=== PATIENT | female | born 1930 | race Caucasian/White ===

== ENCOUNTER 2019-03-13 21:39 | Inpatient (IN) | payer MEDICARE, OTHER ==
[~2019-03-13] VITALS: Ht 154.9 cm; Wt 41.3 kg
--- NOTE | 2019-03-13 22:19 | NUR ---
ANGEL FROM HOME. TO ER BED 10. PT IS TELUGU SPEAKING W/ SON AT BEDSIDE TO TRANSLATE. BREATHING DEEP, O2 SAT @ 100% ON RA. BROUGHT IN FOR SOB THAT IS WORSE TODAY BUT HAS BEEN GOING ON FOR ATLEAST 2 WEEKS. PT'S SONS REPORT THAT PT GET SOB EVEN JUST TAKING 10STEPS. PT NOT ON RESP DISTRESS UPON ASSESSMENT. PT PLACED ON 2 @ 2LPM VIA NC. AWAITING MD SHITAL CHUNG.
[2019-03-13] MEDS ORDERED: ASPIRIN 81 MG TAB.CHEW PO ONE (22:30)
[2019-03-13] MEDS ORDERED: NITROGLYCERIN PACKET 1 GM PACKET TD ONE (22:30)
--- NOTE | 2019-03-13 22:49 | NUR ---
TABBY [phone]
[2019-03-13] MEDS ORDERED: ASPIRIN 81 MG TAB.CHEW ONE (22:59)
[2019-03-13] MEDS ORDERED: NITROGLYCERIN PACKET 1 GM PACKET ONE (22:59)
[2019-03-13 23:06] LABS: BASOPHILS % (AUTO) 0.3 % (0.0-2.0); EOSINOPHILS % (AUTO) 0.3 % (0.0-6.0); LYMPHOCYTES # (AUTO) 1.3 /CMM (0.8-4.8); LYMPHOCYTES % (AUTO) 14.8 % (20.0-44.0); MEAN CORPUSCULAR HGB CONC 34 g/dl (31.0-36.0); MEAN CORPUSCULAR VOLUME 96 fL (82-100); MONOCYTES # (AUTO) 0.8 /CMM (0.1-1.30); MONOCYTES % (AUTO) 8.9 % (2.0-12.0); NEUTROPHILS # (AUTO) 6.4 /CMM (1.8-8.9); NEUTROPHILS % (AUTO) 75.7 % (43.0-81.0); PLATELET COUNT (AUTO) 192 /CMM (150-450); WHITE BLOOD COUNT (AUTO) 8.5 K/uL (4.3-11.0)
--- NOTE | 2019-03-13 23:06 | NUR ---
PATIENT ON PACER PADS AND MONITOR
[2019-03-13 23:07] LABS: RED BLOOD CELL COUNT(AUTO) 1.76 MIL/uL (4.0-5.2)
[2019-03-13 23:08] LABS: HEMATOCRIT 17 % (33-45); HEMOGLOBIN 5.7 g/dL (11.5-14.8)
--- NOTE | 2019-03-13 23:08 | NUR ---
PT NOTED WITH HR OF 42. AWARE.
[2019-03-13 23:11] LABS: CALCIUM, SERUM 7.9 mg/dL (8.5-10.1); CARBON DIOXIDE 17 mmol/L (21-32); CHLORIDE 104 mmol/L (98-107); CREATININE 2.4 mg/dL (0.6-1.3); GLUCOSE 101 mg/dL (74-106); POTASSIUM 5.9 mmol/L (3.5-5.1); SODIUM SERUM 127 mmol/L (136-145); UREA NITROGEN, BLOOD 41 mg/dL (7-18)
--- NOTE | 2019-03-13 23:13 | NUR ---
DR. REED ON THE PHONE WITH TOWER HOIST OPERATOR DR. HUBBARD
[2019-03-13 23:30] LABS: ALANINE AMINOTRANSFERASE 56 U/L (12-78); ALKALINE PHOSPHATASE 108 U/L (46-116); ASPARTATE AMINOTRANSFERASE 56 U/L (15-37); B-TYPE NATRIURETIC PEPTIDE 41151 PG/ML (0-125); BILIRUBIN,DIRECT 0.1 mg/dL (0.0-0.2); BILIRUBIN,TOTAL 0.2 mg/dL (0.2-1.0); D-DIMER 1.72 mg/L(FEU (0.17-0.50); TOTAL PROTEIN, SERUM 13.4 g/dL (6.4-8.2)
--- NOTE | 2019-03-13 23:42 | NUR ---
BED ASSIGNMENT: ICU 257
[2019-03-13] MEDS ORDERED: AMLO5TAB9 PO (23:52)
[2019-03-13] MEDS ORDERED: HYDR200T4 PO (23:52)
[2019-03-13] MEDS ORDERED: FERR325T23 PO (23:52)
[2019-03-13] MEDS ORDERED: FURO20TA4 PO (23:52)
[2019-03-13] MEDS ORDERED: ASCO500T9 PO (23:52)
[2019-03-13] MEDS ORDERED: FOLI1TAB16 PO (23:52)
[2019-03-13] MEDS ORDERED: LUBI24CA5 PO (23:52)
--- NOTE | 2019-03-13 23:57 | NUR ---
DR. ISHAN MEYERS
[2019-03-13] MEDS ORDERED: PANT40TA4 PO (23:58)
[2019-03-13] MEDS ORDERED: MEGE400O5 PO (23:58)
[2019-03-13] MEDS ORDERED: METH25VI11 IJ (23:58)
[2019-03-13] MEDS ORDERED: MAGN400T6 PO (23:58)
[2019-03-13] MEDS ORDERED: SERT25TA5 PO (23:58)
[2019-03-14] VITALS (31 sets, daily range): BP systolic 107–150; BP diastolic 52–100
[2019-03-14] MEDS ORDERED: ENOXAPARIN SODIUM 40 MG/0.4 ML DISP.SYRIN SQ SCH
[2019-03-14] MEDS ORDERED: LEVOFLOXACIN 500 MG /D5W 100ML 500 MG in PREMIX 1 EA IV SCH ×2
[2019-03-14] MEDS ORDERED: DEXTROSE 50%-WATER 50 ML DISP.SYRIN IVP ONE
[2019-03-14] MEDS ORDERED: SODIUM POLYSTYRENE SULFONATE 15 G/60 ML BOTTLE PO ONE
[2019-03-14] MEDS ORDERED: INSULIN REGULAR, HUMAN 100 UNIT/ML 3 ML VIAL SQ ONE
[2019-03-14 00:03] LABS: LYMPHOCYTES % (MANUAL) 11 % (16-48); MONOCYTES % (MANUAL) 6 % (0-11.0); NEUTROPHILS % (MANUAL) 83 (42-76)
[2019-03-14] MEDS ORDERED: LEVOFLOXACIN 500 MG /D5W 100ML 100 ML IV ONE (00:07)
[2019-03-14] MEDS ORDERED: INSULIN REGULAR, HUMAN 100 UNIT/ML 10 ML VIAL ONE (00:08)
[2019-03-14] MEDS ORDERED: SODIUM POLYSTYRENE SULFONATE 15 G/60 ML BOTTLE ONE (00:08)
[2019-03-14] MEDS ORDERED: ENOXAPARIN SODIUM 40 MG/0.4 ML DISP.SYRIN SQ ONE (00:08)
[2019-03-14] MEDS ORDERED: DEXTROSE 50%-WATER 50 ML DISP.SYRIN ONE (00:08)
[2019-03-14] MEDS ORDERED: FUROSEMIDE 20 MG/2 ML VIAL IV SCH (00:30)
[2019-03-14] MEDS ORDERED: FUROSEMIDE 20 MG/2 ML VIAL ONE (00:53)
[2019-03-14] MEDS ORDERED: ONDANSETRON HCL/PF 4 MG/2 ML VIAL IVP PRN (01:00)
--- NOTE | 2019-03-14 01:48 | NUR ---
@1711 BLOOD TRANFUSION STARTED. BLOOD PRODUCT VERIFIED BY 2 RN, KALEY OROPEZA. VITALS SIGNS - T:98.1, HR:75, BP: 114/65, RR:17, O2 SAT: 99%. BLOOD PRODUCT P/U @ LAB @2601
--- NOTE | 2019-03-14 02:15 | NUR ---
FIREWORKS DISPLAY SPECIALIST: PT RECEIVED FROM ED FOR PRIMARY DX OF SEVERE ANEMIA. A/O X 3, IRISH SPEAKING. SON AND DAUGHTER AT BEDSIDE TO INTERPRET. 1 UNIT PRBC RUNNING AND STARTED FROM ER WT NO ADVERSE REACTIONS. NO IV INFILTRATION NOTED. NO ACTIVE BLEEDING. NO ACUTE DISTRESS, NO C/O PAIN. AFEBRILE. SR ON YIELD ANALYST. BODY ASSESSMENT DONE. F/C INSERTED VIA STERILE TECHNIQUE AND TOLERATED WELL. HOB AT 35 DEGREES. BED LOCKED AND IN LOWEST POSITION WT BED ALARM ON AND SIDE RAILS UP X 2. WILL CONTINUE TO MONITOR.
--- NOTE | 2019-03-14 02:21 | NUR ---
PT TRANSPORTED TO UNIT WITH EMT AND RN AT BEDSIDE W/ ACLS PROTOCOL. PT KEPT ON PADDLE S AND MONITOR WHILE BEING TRANSPORTED.
--- NOTE | 2019-03-14 04:30 | NUR ---
STORE SHOPPER: 1 UNIT PRBC TRANSFUSED WT NO ADVERSE REACTION. WILL CONTINUE TO MONITOR. NOTIFIED LABOR CUSTODIAN THAT AM LABS WILL BE DRAWN IN AN HOUR.
[2019-03-14 05:06] LABS: APPEARANCE,URINE CLEAR (CLEAR); BILIRUBIN,URINE NEGATIVE (NEGATIVE); BLOOD, URINE NEGATIVE Ery/uL (NEGATIVE); COLOR,URINE YELLOW (YELLOW); KETONES,URINE NEGATIVE (NEGATIVE); LEUKOCYTE ESTERASE ,URINE NEGATIVE (NEGATIVE); NITRITE, URINE NEGATIVE (NEGATIVE); PROTEIN,URINE TRACE mg/dl (NEGATIVE); UGLUCOSE NEGATIVE (NEGATIVE); UROBILINOGEN,URINE 0.2 EU/dL (0.2)
[2019-03-14 05:11] LABS: OCCULT BLOOD STOOL NEGATIVE (NEGATIVE)
[2019-03-14 05:15] LABS: BACTERIA,URINE Moderate /HPF (None Seen); RBC,URINE 0-2 /HPF (0-2)
[2019-03-14 05:16] LABS: SQUAMOUS EPITHELIAL CELL,UR Few /HPF (None Seen)
[2019-03-14 05:56] LABS: ABG BASE EXCESS -10.5 mmol/L; ABG OXYGEN SATURATION 97.4 % (92.0-98.5); ABG PCO2 20.2 mmHg (35.0-45.0); ABG PH 7.417 (7.350-7.450); ABG PO2 105.7 mmHg (75.0-100.0); AaDO2 70.1 mmHg; COHb 1.1 % (0.5-1.5); MetHb 0.4 % (0.0-1.5); O2Hb 95.9 % (94.0-97.0); SITE, ABG Right Brachial; VENT MODE, BG N/C 2L
[2019-03-14 06:16] LABS: IRON, SERUM 90 ug/dl (50-175); TOTAL IRON BINDING CAPACITY 154 ug/dl (250-450)
[2019-03-14 06:20] LABS: CHOLESTEROL 111 mg/dL (<200); HDL CHOLESTEROL 22 mg/dL (40-60); LDL 77 mg/dL (0-99); THYROID STIMULATING HORMONE 0.457 uIU/mL (0.358-3.74); TRIGLYCERIDES 84 mg/dL (30-150)
[2019-03-14 06:21] LABS: ALANINE AMINOTRANSFERASE 58 U/L (12-78); ALBUMIN 2.1 g/dL (3.4-5.0); ALKALINE PHOSPHATASE 108 U/L (46-116); ASPARTATE AMINOTRANSFERASE 41 U/L (15-37); BILIRUBIN,TOTAL 0.3 mg/dL (0.2-1.0); CALCIUM, SERUM 8.2 mg/dL (8.5-10.1); CARBON DIOXIDE 15 mmol/L (21-32); CHLORIDE 104 mmol/L (98-107); CREATININE 2.6 mg/dL (0.6-1.3); GLUCOSE 76 mg/dL (74-106); MAGNESIUM 1.9 mg/dL (1.8-2.4); PHOSPHORUS 5.4 mg/dL (2.5-4.9); POTASSIUM 5.1 mmol/L (3.5-5.1); SODIUM SERUM 129 mmol/L (136-145); TOTAL PROTEIN, SERUM 14.5 g/dL (6.4-8.2); UREA NITROGEN, BLOOD 44 mg/dL (7-18)
[2019-03-14 06:34] LABS: BASOPHILS % (AUTO) 0.3 % (0.0-2.0); EOSINOPHILS % (AUTO) 0.3 % (0.0-6.0); HEMATOCRIT 23 % (33-45); HEMOGLOBIN 7.6 g/dL (11.5-14.8); LYMPHOCYTES # (AUTO) 1.4 /CMM (0.8-4.8); LYMPHOCYTES % (AUTO) 17.2 % (20.0-44.0); MEAN CORPUSCULAR HGB CONC 34 g/dl (31.0-36.0); MEAN CORPUSCULAR VOLUME 93 fL (82-100); MONOCYTES # (AUTO) 0.6 /CMM (0.1-1.30); NEUTROPHILS # (AUTO) 6.2 /CMM (1.8-8.9); NEUTROPHILS % (AUTO) 75.2 % (43.0-81.0); PLATELET COUNT (AUTO) 200 /CMM (150-450); RED BLOOD CELL COUNT(AUTO) 2.44 MIL/uL (4.0-5.2); WHITE BLOOD COUNT (AUTO) 8.3 K/uL (4.3-11.0)
--- NOTE | 2019-03-14 06:38 | NUR ---
CONSULTING SALES MANAGER: REMAINED ALERT AND AWAKE; ABLE TO MAKE NEEDS KNOWN. SEVERAL EPISODES OF DIARRHEA S/P KAYEXALATE ADMIN FROM ER. NOTED WT 2ND DEGREE HB TYPE 1 WHEN PT BEARS DOWN TO HAVE BOWEL MOVEMENT AND BACK TO SR WT BBB. WILL CONTINUE TO MONITOR.
--- NOTE | 2019-03-14 08:00 | NUR ---
rn inital notes pt awake in bed with NAD, denies pain, no acute or any signs of bleeding noted. remains on o2 inh via NC. torres cath in place and draining thru gravity. sinus rhythm/sinus asif on the monitor. safety ensured. will monitor.
[2019-03-14] MEDS ORDERED: PANTOPRAZOLE 40 MG VIAL IV SCH (09:00)
[2019-03-14] MEDS: NEXIUM 40 MG VIAL IV SCH (09:44)
[2019-03-14 14:36] LABS: CALCIUM, SERUM 7.6 mg/dL (8.5-10.1); CARBON DIOXIDE 14 mmol/L (21-32); CHLORIDE 104 mmol/L (98-107); CREATININE 2.3 mg/dL (0.6-1.3); GLUCOSE 92 mg/dL (74-106); POTASSIUM 4.7 mmol/L (3.5-5.1); SODIUM SERUM 129 mmol/L (136-145); UREA NITROGEN, BLOOD 43 mg/dL (7-18)
--- NOTE | 2019-03-14 19:28 | NUR ---
RN CLOSING NOTES PT AWAKE , DENIES PAIN. SEEN AND PARTICIPATED WITH PT, TOLERATED WELL. SEEN AND ASSESSED BY DR VELA, VERBAL ORDER TO DO CAT SCAN STAT GIVEN. NO BLEEDING NOTED DURING THE SHIFT. PTS SON AT BEDSIDE AND POC DISCUSSED BY DR VELA. ENDORSED TO NEXT SHIFT RN FOR CONTINUITY OF CARE IN STABLE CONDITION.
--- NOTE | 2019-03-14 20:15 | NUR ---
MACHINE OPERATOR PACKAGING NOTES PATIENT LEFT FOR CT IN STABLE CONDITION ACCOMPANIED BY ABBE AND CHARGE NURSE OCHOA
--- NOTE | 2019-03-14 20:35 | NUR ---
BREAKER OILER NOTES PATIENT BACK FROM CT
[2019-03-15] VITALS (17 sets, daily range): BP systolic 101–152; BP diastolic 49–105
[2019-03-15 04:58] LABS: LYMPHOCYTES # (AUTO) 0.7 /CMM (0.8-4.8); LYMPHOCYTES % (AUTO) 11.6 % (20.0-44.0); MEAN CORPUSCULAR HGB CONC 35 g/dl (31.0-36.0); MEAN CORPUSCULAR VOLUME 93 fL (82-100); MONOCYTES # (AUTO) 0.3 /CMM (0.1-1.30); MONOCYTES % (AUTO) 4.7 % (2.0-12.0); NEUTROPHILS # (AUTO) 5.3 /CMM (1.8-8.9); NEUTROPHILS % (AUTO) 83.7 % (43.0-81.0); PLATELET COUNT (AUTO) 175 /CMM (150-450); RED BLOOD CELL COUNT(AUTO) 2.14 MIL/uL (4.0-5.2); WHITE BLOOD COUNT (AUTO) 6.3 K/uL (4.3-11.0)
[2019-03-15 05:22] LABS: ALANINE AMINOTRANSFERASE 42 U/L (12-78); ALBUMIN 1.9 g/dL (3.4-5.0); ALKALINE PHOSPHATASE 90 U/L (46-116); ASPARTATE AMINOTRANSFERASE 28 U/L (15-37); BILIRUBIN,TOTAL 0.3 mg/dL (0.2-1.0); CALCIUM, SERUM 8.1 mg/dL (8.5-10.1); CARBON DIOXIDE 16 mmol/L (21-32); CHLORIDE 105 mmol/L (98-107); CREATININE 2.1 mg/dL (0.6-1.3); GLUCOSE 82 mg/dL (74-106); MAGNESIUM 1.7 mg/dL (1.8-2.4); POTASSIUM 4.6 mmol/L (3.5-5.1); SODIUM SERUM 129 mmol/L (136-145); TOTAL PROTEIN, SERUM 13.8 g/dL (6.4-8.2); UREA NITROGEN, BLOOD 37 mg/dL (7-18)
[2019-03-15 05:33] LABS: CREATINE KINASE, TOTAL 14 U/L (26-192); THYROID STIMULATING HORMONE 0.302 uIU/mL (0.358-3.74); URIC ACID 9.3 mg/dL (2.6-7.2)
[2019-03-15 05:49] LABS: HEMATOCRIT 20 % (33-45)
[2019-03-15 05:52] LABS: HEMOGLOBIN 6.9 g/dL (11.5-14.8)
[2019-03-15 06:50] LABS: LYMPHOCYTES % (MANUAL) 12 % (16-48); MONOCYTES % (MANUAL) 3 % (0-11.0); NEUTROPHILS % (MANUAL) 85 (42-76)
[2019-03-15] MEDS: Magnesium 1GM/D5W 100ML PREMIX 100 ML IV SCH ×2 (08:04→09:45)
[2019-03-15] MEDS: ALLOPURINOL 100 MG TABLET PO SCH (09:51)
[2019-03-15] MEDS: HYDROCORTISONE SOD SUCCINATE 100 MG/2 ML VIAL IV SCH ×3 (09:51→17:22)
--- NOTE | 2019-03-15 10:05 | NUR ---
RN NOTE: RECEIVED REPORT FROM CHARLIE, BRAKE REPAIRER BUS REGARDING THE PATIENT'S DOWNGRADE TO THE UNIT. PATIENT WAS RECEIVED AT ROOM 111-2. PATIENT WAS AWAKE, ALERT AND VERBALLY RESPONSIVE. ABLE TO MAKE HER NEEDS KNOWN. RESPIRATION EVEN AND UNLABORED SATURATING 100% WITH O2 2L/MIN VIA NC. GREEK SPEAKING MOSTLY. GREEK NURSE (Juventino LIM, NIDHI RN) WAS IN THE UNIT AND WAS TRANSLATING FOR THE PATIENT. PATIENT DENIED ANY PAIN AND NO DIZZINESS AT THIS TIME. ATTACHED TO CASH APPLICATIONS MANAGER, SR HR= 65. PER ICU NURSE REPORT, THE PATIENT WILL BE GIVEN A 1 UNIT PRBC DUE TO THE LOW HGB 6.9 AWAITING FOR BLOOD BANK TO CALL ONCE BLOOD IS READY FOR PICK-UP. PREPARED PAPERWORK FOR THE BLOOD INCLUDING COPY OF THE BLOOD TRANSFUSION CONSENT. PATIENT WAS ON COMFORTABLE POSITION WITH HOB ELEVATED AT 35 DEGREE. (L) AC AND (R) FOREARM IV SITE NOTED PATENT AND INTACT WITH MAGNESIUM 1GM IVPB INFUSING PER MD ORDER. AWAITING FOR THE NEXIUM IV TO BE DELIVERED FROM THE PHARMACY. AFEBRILE. SKIN WARM TO TOUCH. HARRISON CATHETER IN PLACED WITH YELLOW URINE DRAINING TO GRAVITY. BED ALARMED AND LOCKED AT ALL TIMES. CALL LIGHT WITHIN REACH. NEEDS ANTICIPATED.
[2019-03-15] MEDS: NEXIUM 40 MG VIAL IV SCH (10:44)
--- NOTE | 2019-03-15 11:09 | NUR ---
RN NOTE: PATIENT WAS STARTED WITH HER BLOOD TRANSFUSION PER MD ORDER. WILL MONITOR AND WATCH HER CLOSELY FOR ANY BLOOD TRANSFUSION REACTION. V/S WERE TAKEN PER PROTOCOL. PLEASE SEE TRANSFUSION RECORD.
[2019-03-15] MEDS: FLUDROCORTISONE 0.1 MG TABLET PO SCH ×2 (12:13→17:22)
[2019-03-15 13:07] LABS: *SPE A/G RATIO 0.4 (0.7-1.7); *SPE ALBUMIN 4.3 g/dL (2.9-4.4); *SPE ALPHA-1-GLOBULIN 0.3 g/dL (0.0-0.4); *SPE ALPHA-2-GLOBULIN 1.1 g/dL (0.4-1.0); *SPE BETA GLOBULIN 1.3 g/dL (0.7-1.3); *SPE GLOBULIN, TOTAL 10.4 g/dL (2.2-3.9); *SPE M-SPIKE 7.2 g/dL (Not Observed); *SPEGAMMA GLOBULIN 7.8 g/dL (0.4-1.8)
--- NOTE | 2019-03-15 13:09 | NUR ---
RN NOTE: BEDSIDE REPORT WAS GIVEN TO KIZZY, MILITARY SCIENCE TEACHER FOR CONTINUITY OF CARE. PATIENT WAS STILL RECEIVING HER BLOOD TRANSFUSION AT THIS TIME. DENIED ANY PAIN OR ANY SHORTNESS OF BREATH. SATURATING 100% WITH O2 2L/MIN VIA NC.
--- NOTE | 2019-03-15 13:10 | NUR ---
ICU/RN: RECEIVED BEDSIDE REPORT. PT ALERT, AWAKE, FOLLOWING COMMANDS. BLOOD TRANSFUSION INFUSING AT THIS TIME. PT TOLERATING WELL. NO ADVERSE REACTIONS NOTED. VS STABLE. NO ACUTE DISTRESS NOTED. ALL NEEDS WILL BE ATTENDED TO, SAFETY MEASURE TAKEN, BED IN LOW POSITON, SIDE RAILS UP, CALL LIGHT WITHIN REACH. WILL CONTINUE CARE.
--- NOTE | 2019-03-15 14:00 | NUR ---
ICU/RN: BLOOD TRANSFUSION COMPLETE. NO ADVERSE REACTIONS NOTED. VSS. WILL CONTINUE TO MONITOR.
--- NOTE | 2019-03-15 18:45 | NUR ---
ICU/RN: DR SCHWARZ AND AT BEDSIDE. DISCUSSED EXTENSIVELY PATIENTS CONDITION AND TREATMENT OPTIONS. OBTAINED CONSENT FOR BONE MARROW BIOPSY AND ASPIRATION FOR TOMORROW. ALL QUESTIONS ANSWERED. NEW ORDERS RECEIVED. WILL CONTINUE TO MONITOR AND ASSESS.
[2019-03-15] MEDS ORDERED: FUROSEMIDE 20 MG/2 ML VIAL IV SCH (19:00)
[2019-03-15] MEDS ORDERED: FUROSEMIDE 20 MG/2 ML VIAL IV ONE (19:00)
--- NOTE | 2019-03-15 19:30 | NUR ---
ICU/RN: BEDSIDE REPORT ENDORSED TO NIGHT NURSE. UPDATES GIVEN REGARDING PT CONDITION AND NEW ORDERS RECEIVED FROM MD. PT NOW NIDHI STATUS. PT RESTING IN BED. WORK OR BREATHING NOTED. VSS, OS AT STABLE. ABG WILL BE DONE. ALL NEEDS ATTENDED, SAFETY MEASURES TAKEN, BED IN LOW POSITION, SIDE RAILS UP, CALL LIGHT WITHIN REACH. WILL CONTINUE CARE.
[2019-03-15] MEDS: ALBUTEROL FS 2.5 MG/3 ML VIAL.NEB NEB SCH (19:41)
--- NOTE | 2019-03-15 19:46 | NUR ---
TD RN NOTE: RECEIVED PT ON BED AWAKE AND ALERT AND ORIENTED X3, TUNISIAN SPEAKING. NO COMPLAINTS OF PAIN OR DISCOMFORT. ON 3LPM NASAL CANNULA, NO SOB NOTED AT THIS TIME, 100% O2 SAT. ON TELE MONITOR SINUS RHYTHM HR 74BPM. LEFT ANTECUBITAL #20 INTACT AND PATENT, FLUSHING WELL. KEPT CLEAN, DRY AND COMFORTABLE. CALL LIGHT PLACED WITHIN REACH. SIDE RAILS UP X2. BED ALARM ON. BED LOCKED AND IN LOWEST POSITION. WILL CONTINUE TO MONITOR PT.
[2019-03-15] MEDS: MEGESTROL ACETATE SUSP 400 MG/10 ML UDC PO SCH (19:54)
[2019-03-15 20:17] LABS: ABG BASE EXCESS -8.8 mmol/L; ABG OXYGEN SATURATION 98.1 % (92.0-98.5); ABG PCO2 20.9 mmHg (35.0-45.0); ABG PH 7.443 (7.350-7.450); AaDO2 79.7 mmHg; COHb 0.6 % (0.5-1.5); MetHb 0.4 % (0.0-1.5); O2Hb 97.1 % (94.0-97.0); SITE, ABG Right Radial; VENT MODE, BG Cannula
[2019-03-16] VITALS: BP 139/76
[2019-03-16] MEDS: FLUDROCORTISONE 0.1 MG TABLET PO SCH ×4 (00:07→17:20)
[2019-03-16 04:00] VITALS: BP 144/73
--- NOTE | 2019-03-16 06:36 | NUR ---
TD RN NOTE: NO CHANGES NOTED THROUGHOUT THE SHIFT. NO APPARENT DISTRESS NOTED. DENIES PAIN AND DISCOMFORT AT THIS TIME. ON 3LPM NASAL CANNULA, SATURATING WELL. SINUS RHYTHM ON TELE MONITOR HR 81BPM. IV ON LEFT ANTECUBITAL #20 INTACT AND PATENT, FLUSHING WELL. HARRISON CATH INTACT, DRAINED 2000ML OF URINE OUTPUT. KEPT CLEAN, DRY AND COMFORTABLE. SAFETY AND FALL PRECAUTIONS OBSERVED AND MAINTAINED. WILL ENDORSE TO DAY SHIFT RN FOR CONTINUITY OF CARE.
[2019-03-16 07:09] LABS: BASOPHILS % (AUTO) 0.3 % (0.0-2.0); EOSINOPHILS % (AUTO) 0.1 % (0.0-6.0); HEMATOCRIT 22 % (33-45); HEMOGLOBIN 7.5 g/dL (11.5-14.8); LYMPHOCYTES # (AUTO) 0.6 /CMM (0.8-4.8); LYMPHOCYTES % (AUTO) 11.8 % (20.0-44.0); MEAN CORPUSCULAR HGB CONC 34 g/dl (31.0-36.0); MEAN CORPUSCULAR VOLUME 93 fL (82-100); MONOCYTES # (AUTO) 0.1 /CMM (0.1-1.30); MONOCYTES % (AUTO) 2.3 % (2.0-12.0); NEUTROPHILS # (AUTO) 4.1 /CMM (1.8-8.9); NEUTROPHILS % (AUTO) 85.5 % (43.0-81.0); PLATELET COUNT (AUTO) 156 /CMM (150-450); RED BLOOD CELL COUNT(AUTO) 2.39 MIL/uL (4.0-5.2); WHITE BLOOD COUNT (AUTO) 4.7 K/uL (4.3-11.0)
--- NOTE | 2019-03-16 07:15 | NUR ---
RN Note: Pt received, Faroese speaking only, SOB with exertion. FC draining to gravity. R AC HL patent and intact. Oriented to unit. Safety measures in place.
[2019-03-16 07:20] LABS: ALANINE AMINOTRANSFERASE 39 U/L (12-78); ALBUMIN 1.9 g/dL (3.4-5.0); ALKALINE PHOSPHATASE 85 U/L (46-116); ASPARTATE AMINOTRANSFERASE 25 U/L (15-37); BILIRUBIN,TOTAL 0.3 mg/dL (0.2-1.0); CALCIUM, SERUM 7.8 mg/dL (8.5-10.1); CARBON DIOXIDE 15 mmol/L (21-32); CHLORIDE 101 mmol/L (98-107); CREATININE 1.9 mg/dL (0.6-1.3); GLUCOSE 114 mg/dL (74-106); PHOSPHORUS 5.6 mg/dL (2.5-4.9); POTASSIUM 3.5 mmol/L (3.5-5.1); SODIUM SERUM 127 mmol/L (136-145); TOTAL PROTEIN, SERUM 13.5 g/dL (6.4-8.2); UREA NITROGEN, BLOOD 41 mg/dL (7-18)
[2019-03-16] MEDS: ALBUTEROL FS 2.5 MG/3 ML VIAL.NEB NEB SCH ×4 (07:54→19:39)
[2019-03-16 08:00] VITALS: BP 139/66
[2019-03-16] MEDS: HYDROCORTISONE SOD SUCCINATE 100 MG/2 ML VIAL IV SCH ×3 (08:16→16:15)
[2019-03-16] MEDS: MEGESTROL ACETATE SUSP 400 MG/10 ML UDC PO SCH ×2 (08:16→16:15)
[2019-03-16] MEDS: ALLOPURINOL 100 MG TABLET PO SCH (08:17)
[2019-03-16] MEDS: NEXIUM 40 MG VIAL IV SCH (08:17)
[2019-03-16] MEDS: Z GUARD REMEDY 2 OZ OINT TP PRN (08:17)
[2019-03-16] MEDS ORDERED: FUROSEMIDE 20 MG/2 ML VIAL IV ONE (09:30)
--- NOTE | 2019-03-16 10:30 | NUR ---
RN Note: Pt OOB to chair; ambulated with walker. Dyspnea noted with exertion. Educated pt to relax and take time during ADL's. S/P lasix administration.
--- NOTE | 2019-03-16 11:15 | NUR ---
RN Note: Pt out of unit for skeletal survey. Dr Enriquez rounding and updated.
--- NOTE | 2019-03-16 11:21 | NUR ---
RN Note: Pt back from radiology. Tolerated well.
[2019-03-16 12:09] LABS: *SPE A/G RATIO 0.4 (0.7-1.7); *SPE ALBUMIN 3.7 g/dL (2.9-4.4); *SPE ALPHA-1-GLOBULIN 0.2 g/dL (0.0-0.4); *SPE BETA GLOBULIN 1.2 g/dL (0.7-1.3); *SPE GLOBULIN, TOTAL 9.3 g/dL (2.2-3.9); *SPE M-SPIKE 6.7 g/dL (Not Observed)
--- NOTE | 2019-03-16 14:45 | NUR ---
RN Note: Pt c/o abd pain and distention after eating. Abd distention noted; given prune juice per pt request in am to no effect. Noted with increased work of breathing and discomfort. Dr Enriquez notified with orders for stat KUB for suspected ischemia, upgrade to NIDHI status, Dr Rosenthal consulted by MD for respiratory consultation. machinery cleaner updated.
[2019-03-16] MEDS ORDERED: LIDOCAINE 1% INJ 50 ML MDV IJ ONE (15:00)
--- NOTE | 2019-03-16 15:30 | NUR ---
RN Note: Dr Loredo rounds; updated on pt status. Pt's respiratory status remains tenuous; bone marrow biopsy on hold. Procedure supplies kept at bedside per MD order; lidocaine remains in pt cassette.
[2019-03-16] MEDS: MAG HYDROX/AL HYDROX/SIMETH 30 ML UDC PO PRN (15:36)
[2019-03-16 16:00] VITALS: BP_SYST 123; BP_DIAS 61; BP_DIAS 65
[2019-03-16] MEDS: IV D5/0.45 NACL 1,000 ML IV PRN (16:15)
--- NOTE | 2019-03-16 17:15 | NUR ---
RN Note: Extensive discussion with Herminio, son regarding POC. Pt kept NPO, on IVF per Dr Enriquez's orders.
--- NOTE | 2019-03-16 19:00 | NUR ---
RN Note: Pt resting in bed comfortably, indicates increase in comfort. IVF infusing well. FC draining to gravity. Bedside report given to RN for VASU.
--- NOTE | 2019-03-16 19:35 | NUR ---
TD RN NOTE: RECEIVED PT ON BED AWAKE AND ALERT AND ORIENTED X3, RUSSIAN SPEAKING ONLY. NO COMPLAINTS OF PAIN OR DISCOMFORT AT THIS TIME. ON 2LPM NASAL CANNULA, NO SOB NOTED AT THIS TIME, 100% O2 SAT. ON TELE MONITOR SINUS RHYTHM HR 64BPM. LEFT ANTECUBITAL #20 INTACT AND PATENT, IVF INFUSING WELL. KEPT CLEAN, DRY AND COMFORTABLE. CALL LIGHT PLACED WITHIN REACH. SIDE RAILS UP X2. BED ALARM ON. BED LOCKED AND IN LOWEST POSITION. WILL CONTINUE TO MONITOR PT.
[2019-03-16 20:00] VITALS: BP 132/53
[2019-03-17] VITALS: BP 126/67
[2019-03-17] MEDS: FLUDROCORTISONE 0.1 MG TABLET PO SCH ×3 (00:09→11:11)
[2019-03-17 04:00] VITALS: BP 132/42
--- NOTE | 2019-03-17 06:48 | NUR ---
TD RN NOTE: NO CHANGES NOTED THROUGHOUT THE SHIFT. NO APPARENT DISTRESS NOTED. DENIES PAIN AND DISCOMFORT AT THIS TIME. ON 2LPM NASAL CANNULA, SATURATING WELL. SOB ON EXERTION STILL NOTED. SINUS RHYTHM ON TELE MONITOR HR 65BPM. IV ON LEFT ANTECUBITAL #20 GOT INFILTRATED, REINSERTED NEW IV LINE ON RIGHT FOREARM #22 INTACT AND PATENT, IVF INFUSING WELL. HARRISON CATH INTACT, DRAINED 1100ML OF URINE OUTPUT. KEPT CLEAN, DRY AND COMFORTABLE. SAFETY AND FALL PRECAUTIONS OBSERVED AND MAINTAINED. WILL ENDORSE TO DAY SHIFT RN FOR CONTINUITY OF CARE.
--- NOTE | 2019-03-17 07:00 | NUR ---
RN NOTE: RECEIVED PT ON BED , A/Ox3, TELUGU SPEAKING ONLY. ON 2L O2 N/C , O2 SAT WNL , ON TELE SR, HR IN 60' , NO DISTRESS NOTED, IVF D51/2 NS AT 50 CC /HR RUNNING VIA R FA IV SITE G 22, SITE CLEAN,DRY AND INTACT, CALL LIGHT WITHIN EASY REACH. BED LOCKED AND IN LOWEST POSITION, SIDE RAILS UP X3. BED ALARM ON. CONTINUE TO MONITOR CLOSELY.
[2019-03-17 07:05] LABS: CALCIUM, SERUM 7.6 mg/dL (8.5-10.1); CARBON DIOXIDE 16 mmol/L (21-32); CHLORIDE 104 mmol/L (98-107); CREATININE 1.6 mg/dL (0.6-1.3); GLUCOSE 113 mg/dL (74-106); MAGNESIUM 2.1 mg/dL (1.8-2.4); PHOSPHORUS 4.1 mg/dL (2.5-4.9); SODIUM SERUM 132 mmol/L (136-145); UREA NITROGEN, BLOOD 44 mg/dL (7-18)
[2019-03-17 07:29] LABS: POTASSIUM 2.6 mmol/L (3.5-5.1)
--- NOTE | 2019-03-17 07:34 | NUR ---
RN NOTES DR VELA PAGED REGARDING K=2.6,
[2019-03-17] MEDS: ALBUTEROL FS 2.5 MG/3 ML VIAL.NEB NEB SCH ×4 (07:38→20:03)
[2019-03-17 08:00] VITALS: BP 137/77
[2019-03-17] MEDS ORDERED: POTASSIUM CHLORIDE 20 MEQ POWDER PACKET GT ONE (08:00)
[2019-03-17] MEDS ORDERED: POTASSIUM CHLORIDE 10 MEQ/50 ML PREMIXED IVPB FOR PERIPHERAL LINE IV ONE (08:00)
--- NOTE | 2019-03-17 08:00 | NUR ---
RN NOTES ORDER RECEIVED FROM DR VELA TO REPLACE POTASSIUM ,CONTINUE TO MONITOR
[2019-03-17] MEDS: MEGESTROL ACETATE SUSP 400 MG/10 ML UDC PO SCH ×2 (08:08→16:26)
[2019-03-17] MEDS: HYDROCORTISONE SOD SUCCINATE 100 MG/2 ML VIAL IV SCH ×3 (08:08→16:26)
[2019-03-17] MEDS: POTASSIUM CL. PREMIX PERIPHER. 50 ML IV SCH ×4 (08:09→11:11)
[2019-03-17] MEDS: ALLOPURINOL 100 MG TABLET PO SCH (08:09)
[2019-03-17] MEDS: NEXIUM 40 MG VIAL IV SCH (08:11)
[2019-03-17] MEDS: HYDROCODONE/APAP 5/325MG 1 EACH TABLET PO PRN ×2 (08:18→17:14)
[2019-03-17] MEDS: IV D5/0.45 NACL 1,000 ML IV PRN (11:16)
--- NOTE | 2019-03-17 12:28 | NUR ---
RN NOTE DR VELA NOTIFED REGARDING MED RECON.
[2019-03-17] MEDS ORDERED: Potassium Chloride 40 MEQ in IV D5/0.45 NACL 1,000 ML IV PRN (13:05)
[2019-03-17 16:00] VITALS: BP 127/70
--- NOTE | 2019-03-17 18:04 | NUR ---
RN NOTES BONE MARROW BX DONE AT THE BEDSIDE ON R HIP, BY DR SCHWARZ , PT TOLERATED WELL, NO DISTRESS NOTED, BANDAIDE ON SITE , CLEAN, DRY AND INTACT, CONTINUE TO MONITOR .
[2019-03-17 18:18] LABS: BASOPHILS % (AUTO) 0.1 % (0.0-2.0); EOSINOPHILS % (AUTO) 0.1 % (0.0-6.0); LYMPHOCYTES # (AUTO) 0.2 /CMM (0.8-4.8); LYMPHOCYTES % (AUTO) 6.6 % (20.0-44.0); MEAN CORPUSCULAR HGB CONC 34 g/dl (31.0-36.0); MEAN CORPUSCULAR VOLUME 93 fL (82-100); MONOCYTES % (AUTO) 0.7 % (2.0-12.0); NEUTROPHILS # (AUTO) 3.4 /CMM (1.8-8.9); NEUTROPHILS % (AUTO) 92.5 % (43.0-81.0); PLATELET COUNT (AUTO) 139 /CMM (150-450); RED BLOOD CELL COUNT(AUTO) 2.16 MIL/uL (4.0-5.2); WHITE BLOOD COUNT (AUTO) 3.7 K/uL (4.3-11.0)
--- NOTE | 2019-03-17 18:19 | NUR ---
RN NOTES BX SAMPLE DELIVERED TO THE LAB , PT STABLE, SUPPORTIVE FAMILY AT THE BEDSIDE, NO DISTRESS NOTED , WILL ENDORSE TO REEXAMINER NURSE FOR CONTINUITY OF CARE.
[2019-03-17 18:41] LABS: HEMOGLOBIN 6.8 g/dL (11.5-14.8)
[2019-03-17 18:42] LABS: HEMATOCRIT 20 % (33-45)
--- NOTE | 2019-03-17 19:00 | NUR ---
RN NOTES H/H 6.03/07 , DR VELA PAGED , NO RETURN CALL YET .
--- NOTE | 2019-03-17 19:10 | NUR ---
RN NOTES NO RETURN CALL FROM DR THOMASON YET, REPORT ENDORSED TO STANLEY ROCHE FOR CONTINUITY OF CARE .
[2019-03-17 19:29] LABS: LYMPHOCYTES % (MANUAL) 7 % (16-48); MONOCYTES % (MANUAL) 1 % (0-11.0); NEUTROPHILS % (MANUAL) 92 (42-76)
[2019-03-17 20:00] VITALS: BP 132/68
--- NOTE | 2019-03-17 20:00 | NUR ---
MILL OPERATOR HEAD OPENING NOTES RECEIVED REPORT FROM GOMEZ ROCHE. PATIENT A/A/O X2-3, MOSTLY BELIZEAN-SPEAKING BUT STILL ABLE TO MAKE SOME NEEDS KNOWN & STATE PAIN. BREATHING EVEN & UNLABORED, TOLERATING O2 @ 2LPM VIA NC. DENIES ANY SOB OR DIFFICULTY BREATHING. ON TELE W/ SINUS RHYTHM, HR 70S. RIGHT FOREARM IV #22 INTACT & PATENT W/ DRESSING CDI & IVF D5 1/2 NS W/ 20 MEQ OF KCL INFUSING WELL @ 50 ML/HR. HARRISON CATH DRAINING YELLOW URINE. SAFETY MEASURES IN PLACE W/ SIDE RAILS UP & BED ALARM ON. TURNED & REPOSITIONED FOR COMFORT W HOB ELEVATED FOR ASPIRATION PRECAUTIONS. WILL CONTINUE TO MONITOR.
[2019-03-18] VITALS (12 sets, daily range): BP systolic 137–155; BP diastolic 73–91
[2019-03-18] MEDS: MAGNESIUM HYDROXIDE 30 ML UDC PO PRN (04:48)
[2019-03-18 07:03] LABS: BASOPHILS % (AUTO) 0.2 % (0.0-2.0); EOSINOPHILS % (AUTO) 0.6 % (0.0-6.0); HEMATOCRIT 24 % (33-45); HEMOGLOBIN 8.3 g/dL (11.5-14.8); LYMPHOCYTES # (AUTO) 0.3 /CMM (0.8-4.8); LYMPHOCYTES % (AUTO) 10.2 % (20.0-44.0); MEAN CORPUSCULAR HGB CONC 34 g/dl (31.0-36.0); MEAN CORPUSCULAR VOLUME 93 fL (82-100); MONOCYTES # (AUTO) 0.1 /CMM (0.1-1.30); MONOCYTES % (AUTO) 2.1 % (2.0-12.0); NEUTROPHILS % (AUTO) 86.9 % (43.0-81.0); PLATELET COUNT (AUTO) 131 /CMM (150-450); RED BLOOD CELL COUNT(AUTO) 2.61 MIL/uL (4.0-5.2); WHITE BLOOD COUNT (AUTO) 3.4 K/uL (4.3-11.0)
[2019-03-18 07:09] LABS: ALANINE AMINOTRANSFERASE 35 U/L (12-78); ALBUMIN 1.9 g/dL (3.4-5.0); ALKALINE PHOSPHATASE 63 U/L (46-116); ASPARTATE AMINOTRANSFERASE 20 U/L (15-37); BILIRUBIN,DIRECT 0.2 mg/dL (0.0-0.2); BILIRUBIN,TOTAL 0.5 mg/dL (0.2-1.0); CALCIUM, SERUM 7.9 mg/dL (8.5-10.1); CARBON DIOXIDE 15 mmol/L (21-32); CHLORIDE 109 mmol/L (98-107); CREATININE 1.5 mg/dL (0.6-1.3); GLUCOSE 104 mg/dL (74-106); PHOSPHORUS 3.6 mg/dL (2.5-4.9); POTASSIUM 4.9 mmol/L (3.5-5.1); SODIUM SERUM 134 mmol/L (136-145); TOTAL PROTEIN, SERUM 13.4 g/dL (6.4-8.2); UREA NITROGEN, BLOOD 49 mg/dL (7-18)
[2019-03-18] MEDS: ALBUTEROL FS 2.5 MG/3 ML VIAL.NEB NEB SCH ×4 (07:18→20:06)
--- NOTE | 2019-03-18 07:45 | NUR ---
RN NOTE: RECEIVED PATIENT IN BED, AWAKE, ALERT AND VERBALLY RESPONSIVE. RESPIRATION EVEN AND UNLABORED SATURATING 97% WITH O2 2L/MIN VIA NC. AFEBRILE. SKIN WARM TO TOUCH. HOB ELEVATED. ON GRIND OPERATOR SR WITH HR 80. PATIENT WAS VERBALIZING THAT HER MOUTH WAS VERY DRY. MOISTENED THE PATIENT'S MOUTH WITH LEMON GLYCERIN SWAB. (R) FOREARM AND (R) WRIST IV SITE NOTED PATENT AND INTACT. HARRISON CATHETER IN PLACED WITH YELLOW URINE DRAINING TO GRAVITY. BED ON LOWEST POSITION. BED ALARMED AND LOCKED AT ALL TIMES. CALL LIGHT WITHIN REACH. NEEDS ANTICIPATED.
[2019-03-18] MEDS: HYDROCODONE/APAP 5/325MG 1 EACH TABLET PO PRN (07:58)
[2019-03-18] MEDS: ALLOPURINOL 100 MG TABLET PO SCH (08:19)
[2019-03-18] MEDS: HYDROCORTISONE SOD SUCCINATE 100 MG/2 ML VIAL IV SCH ×3 (08:19→17:18)
[2019-03-18] MEDS: MEGESTROL ACETATE SUSP 400 MG/10 ML UDC PO SCH ×2 (08:19→17:18)
[2019-03-18] MEDS: NEXIUM 40 MG VIAL IV SCH (08:23)
--- NOTE | 2019-03-18 08:47 | NUR ---
RN NOTE: KUB DONE AT THE BEDSIDE. PATIENT TOLERATED IT.
--- NOTE | 2019-03-18 10:59 | NUR ---
RN NOTE: CALLED AND SPOKE WITH DR. VELA REGARDING THE PATIENT'S KUB RESULT. PER MD, OK TO START WITH CLEAR LIQUID DIET FOR LUNCH AND ADVANCE TOLERATED. TABBY, SON WAS AT THE BEDSIDE AND MADE AWARE OF IT.
--- NOTE | 2019-03-18 12:07 | NUR ---
RN NOTE: SPOKE WITH DR. VELA AND CLARIFIED WITH HER REGARDING THE ACUITY STATUS OF THE PATIENT. PER MD, KEEP THE PATIENT ON TELEMETRY MONITORING DUE TO HER HIGH RISK SITUATION. ORDERED AND CARRIED OUT.
--- NOTE | 2019-03-18 19:30 | NUR ---
COMPUTER DRAFTER NOTE: RECEIVED PT ON BED AWAKE AND ALERT AND ORIENTED X3, JAPANESE SPEAKING ONLY. NO COMPLAINTS OF PAIN OR DISCOMFORT AT THIS TIME. ON 2LPM NASAL CANNULA, NO SOB NOTED, 100% O2 SAT. ON TELE MONITOR SINUS RHYTHM HR 68BPM. RIGHT FOREARM #22 AND RIGHT WRIST #20 INTACT AND PATENT, FLUSHING WELL. KEPT CLEAN, DRY AND COMFORTABLE. CALL LIGHT PLACED WITHIN REACH. SIDE RAILS UP X2. BED ALARM ON. BED LOCKED AND IN LOWEST POSITION. WILL CONTINUE TO MONITOR PT.
--- NOTE | 2019-03-18 19:46 | NUR ---
RN NOTE: BEDSIDE REPORT WAS GIVEN TO PM SHIFT NURSE FOR CONTINUITY OF CARE. PATIENT WAS ASLEEP IN THE BED. COMFORTABLE AND NO SHORTNESS OF BREATH NOTED. PATIENT REMAINED ON O2 2L/MIN VIA NC. (R) FOREARM AND (R) WRIST IV SITE REMAINED PATENT AND INTACT.
[2019-03-19] VITALS (7 sets, daily range): BP systolic 120–147; BP diastolic 66–90
--- NOTE | 2019-03-19 06:36 | NUR ---
STRAP BUCKLER MACHINE NOTE: NO CHANGES NOTED THROUGHOUT THE SHIFT. NO APPARENT DISTRESS NOTED. DENIES PAIN AND DISCOMFORT AT THIS TIME. ON 2LPM NASAL CANNULA, SATURATING WELL. NO SOB NOTED AT THIS TIME. SINUS RHYTHM ON TELE MONITOR HR 86BPM. IV ON RIGHT FOREARM #22 AND RIGHT WRIST #20 INTACT AND PATENT, FLUSHING WELL. HARRISON CATH INTACT, DRAINED 300ML OF URINE OUTPUT. KEPT CLEAN, DRY AND COMFORTABLE. SAFETY AND FALL PRECAUTIONS OBSERVED AND MAINTAINED. WILL ENDORSE TO DAY SHIFT RN FOR CONTINUITY OF CARE.
[2019-03-19 07:29] LABS: CALCIUM, SERUM 8.3 mg/dL (8.5-10.1); CARBON DIOXIDE 16 mmol/L (21-32); CHLORIDE 107 mmol/L (98-107); CREATININE 1.4 mg/dL (0.6-1.3); GLUCOSE 99 mg/dL (74-106); POTASSIUM 4.3 mmol/L (3.5-5.1); SODIUM SERUM 132 mmol/L (136-145); UREA NITROGEN, BLOOD 49 mg/dL (7-18)
--- NOTE | 2019-03-19 07:30 | NUR ---
RN AM NOTE PATIENT CYMRO SPEAKING FAMILY AT BEDSIDE. NO COMPLAINTS OF PAIN, ASSIST PATIENT TO BEDSIDE COMODE. PATIENT ON LIQUID DIET TOLERATING 75% OF ALL MEALS. VITALS WNL EXTERNAL MONIITOR ON IV PATENT AND FLUSIING WELL. F/C DRAINING WELL SKIUIN INTACT SAFTY MEASURES IN PLACE CALL LIGHT WITHIN REACH.
[2019-03-19] MEDS: ALBUTEROL FS 2.5 MG/3 ML VIAL.NEB NEB SCH ×4 (07:52→20:08)
[2019-03-19] MEDS: MEGESTROL ACETATE SUSP 400 MG/10 ML UDC PO SCH ×2 (08:20→17:44)
[2019-03-19] MEDS: NEXIUM 40 MG VIAL IV SCH (08:20)
[2019-03-19] MEDS: HYDROCORTISONE SOD SUCCINATE 100 MG/2 ML VIAL IV SCH ×3 (08:20→17:44)
[2019-03-19] MEDS: ALLOPURINOL 100 MG TABLET PO SCH (08:20)
[2019-03-19] MEDS: MAGNESIUM HYDROXIDE 30 ML UDC PO PRN (08:50)
[2019-03-19] MEDS: MAG HYDROX/AL HYDROX/SIMETH 30 ML UDC PO PRN (08:50)
[2019-03-19 10:14] LABS: BASOPHILS % (AUTO) 0.2 % (0.0-2.0); EOSINOPHILS % (AUTO) 2.8 % (0.0-6.0); HEMATOCRIT 25 % (33-45); HEMOGLOBIN 8.3 g/dL (11.5-14.8); LYMPHOCYTES # (AUTO) 0.3 /CMM (0.8-4.8); LYMPHOCYTES % (AUTO) 8.8 % (20.0-44.0); MEAN CORPUSCULAR HGB CONC 34 g/dl (31.0-36.0); MEAN CORPUSCULAR VOLUME 95 fL (82-100); MONOCYTES # (AUTO) 0.1 /CMM (0.1-1.30); MONOCYTES % (AUTO) 2.6 % (2.0-12.0); NEUTROPHILS % (AUTO) 85.6 % (43.0-81.0); PLATELET COUNT (AUTO) 108 /CMM (150-450); WHITE BLOOD COUNT (AUTO) 3.5 K/uL (4.3-11.0)
--- NOTE | 2019-03-19 19:00 | NUR ---
RN CLOSING NOTE EXTERNAL MONIITOR ON IV PATENT AND FLUSIING WELL. F/C DRAINING WELL SKIUIN INTACT SAFTY MEASURES IN PLACE CALL LIGHT WITHIN REACH. FAMILY AT BEDSIDE. VOICED CONCERN REGARDING PATIENTS BREATHING, RN ASSESSED VITALS WNL OXYGEN AT 99% BLOOD [id number] NORAML HEART RATE FLUCTUATES FROM 90-110. NO SYSMPTOMS OF DISTRESS PRESENT, FAMILY AT BEDSIDE CAUSING A LOT OF NOISE AND AGITATING PATIENT. PATIENT STABLE. CONT HOSPITALZIATION PER MD.
--- NOTE | 2019-03-19 19:45 | NUR ---
SENIOR CLINICIAN NOTE: RECEIVED PT ON BED AWAKE AND ALERT AND ORIENTED X3, INDONESIAN SPEAKING ONLY. NO COMPLAINTS OF PAIN OR DISCOMFORT AT THIS TIME. ON 2LPM NASAL CANNULA, NO SOB NOTED, 100% O2 SAT. ON TELE MONITOR SINUS RHYTHM HR 94 BPM. RIGHT FOREARM #22 AND RIGHT WRIST #20 INTACT AND PATENT, FLUSHING WELL. KEPT CLEAN, DRY AND COMFORTABLE. CALL LIGHT PLACED WITHIN REACH. SIDE RAILS UP X2. BED ALARM ON. BED LOCKED AND IN LOWEST POSITION. WILL CONTINUE TO MONITOR PT.
[2019-03-20] VITALS: BP 134/71
[2019-03-20 04:00] VITALS: BP 138/92
[2019-03-20 06:31] LABS: BASOPHILS % (AUTO) 0.1 % (0.0-2.0); EOSINOPHILS % (AUTO) 3.2 % (0.0-6.0); HEMATOCRIT 24 % (33-45); HEMOGLOBIN 8.2 g/dL (11.5-14.8); LYMPHOCYTES # (AUTO) 0.3 /CMM (0.8-4.8); LYMPHOCYTES % (AUTO) 5.4 % (20.0-44.0); MEAN CORPUSCULAR HGB CONC 34 g/dl (31.0-36.0); MEAN CORPUSCULAR VOLUME 94 fL (82-100); MONOCYTES # (AUTO) 0.1 /CMM (0.1-1.30); MONOCYTES % (AUTO) 2.9 % (2.0-12.0); NEUTROPHILS # (AUTO) 4.2 /CMM (1.8-8.9); NEUTROPHILS % (AUTO) 88.4 % (43.0-81.0); PLATELET COUNT (AUTO) 82 /CMM (150-450); RED BLOOD CELL COUNT(AUTO) 2.59 MIL/uL (4.0-5.2); WHITE BLOOD COUNT (AUTO) 4.7 K/uL (4.3-11.0)
[2019-03-20 06:52] LABS: CALCIUM, SERUM 8.1 mg/dL (8.5-10.1); CREATININE 1.3 mg/dL (0.6-1.3); MAGNESIUM 1.9 mg/dL (1.8-2.4); PHOSPHORUS 2.9 mg/dL (2.5-4.9)
--- NOTE | 2019-03-20 07:20 | NUR ---
LEATHER BELT SHAPER NOTE: NO CHANGES NOTED THROUGHOUT THE SHIFT. NO APPARENT DISTRESS NOTED. NO COMPLAINTS OF PAIN OR DISCOMFORT AT THIS TIME. ON 2LPM NASAL CANNULA, SATURATING WELL. NO SOB NOTED AT THIS TIME. SINUS RHYTHM ON TELE MONITOR HR 96 BPM. IV ON RIGHT FOREARM #22 AND RIGHT WRIST #20 INTACT AND PATENT, FLUSHING WELL. HARRISON CATH INTACT, DRAINED 1250ML OF URINE OUTPUT. KEPT CLEAN, DRY AND COMFORTABLE. SAFETY AND FALL PRECAUTIONS OBSERVED AND MAINTAINED. WILL ENDORSE TO DAY SHIFT RN FOR CONTINUITY OF CARE.
[2019-03-20 08:00] VITALS: BP 130/97
[2019-03-20] MEDS: ALBUTEROL FS 2.5 MG/3 ML VIAL.NEB NEB SCH ×3 (08:32→19:37)
[2019-03-20] MEDS: NEXIUM 40 MG VIAL IV SCH (09:27)
[2019-03-20] MEDS: MEGESTROL ACETATE SUSP 400 MG/10 ML UDC PO SCH ×2 (09:27→17:30)
[2019-03-20] MEDS: HYDROCORTISONE SOD SUCCINATE 100 MG/2 ML VIAL IV SCH ×3 (09:27→17:30)
[2019-03-20] MEDS: ALLOPURINOL 100 MG TABLET PO SCH (09:28)
[2019-03-20 12:00] VITALS: BP_SYST 108; BP_SYST 133; BP_DIAS 77; BP_DIAS 79
[2019-03-20] MEDS ORDERED: CEFUROXIME AXETIL 250 MG TABLET PO SCH (15:00)
[2019-03-20 16:00] VITALS: BP 108/79
--- NOTE | 2019-03-20 17:00 | NUR ---
telephonic nurse notes pt's family requested vegetarian diet for pt to have "easy bowel movement"
[2019-03-20] MEDS: MAGNESIUM HYDROXIDE 30 ML UDC PO PRN (17:41)
[2019-03-20] MEDS: CEFUROXIME AXETIL 250 MG TABLET PO SCH (18:06)
[2019-03-20 18:36] LABS: ABG BASE EXCESS -10.5 mmol/L; ABG PCO2 18.5 mmHg (35.0-45.0); ABG PH 7.434 (7.350-7.450); ABG PO2 89.8 mmHg (75.0-100.0); COHb 0.3 % (0.5-1.5); MetHb 0.9 % (0.0-1.5); O2Hb 95.8 % (94.0-97.0); SITE, ABG Left Radial
--- NOTE | 2019-03-20 19:00 | NUR ---
RECEIVED PATIENT IN NO ACUTE DISTRESS IN BED. PATIENT IS A/O X 3 AND ABLE TO MAKE NEEDS KNOWN. PATIENT IS HEBREW SPEAKING ONLY. PATIENT IS ON O2 VIA NC AT 2LPM AND TOLERATING WELL. PATIENT IS ON TELE WITH SR ON THE MONITOR. PATIENT HAS HARRISON CATHETER THAT IS CLEAN DRY INTACT AND PATENT WITH YELLOW URINE DRAINING. PATIENT HAS R WRIST 20G THAT IS CLEAN DRY INTACT AND PATENT WITH SALINE LOCK. BED IN LOW LOCK POSITION WITH RIALS UP X 2 CALL LIGHT WITHIN REACH AND ALL SAFETY MEASURES ENSURED AND CARRIED OUT. WILL CONTINUE TO MONITOR PATIENT.
--- NOTE | 2019-03-20 19:30 | NUR ---
BRIDAL CONSULTANT NOTES PT RESTING IN BED, FAMILY UPDATED WITH POC. PT WITH LABORED BREATHING AT REST. CHARGE NURSE NOTIFIED OF ABG RESULTS. INCREASED OXYGEN TO 4L NC. NO S/SX OF BLEEDING TODAY. ENDORSED TO PM NURSE FOR VASU.
[2019-03-20 20:00] VITALS: BP 117/69
[2019-03-21] VITALS: BP_SYST 140; BP_DIAS 57; BP_DIAS 87
[2019-03-21] MEDS: MAGNESIUM HYDROXIDE 30 ML UDC PO PRN (03:45)
[2019-03-21 04:00] VITALS: BP 143/92
--- NOTE | 2019-03-21 06:36 | NUR ---
PATIENT REMAINS IN NO ACUTE DISTRESS IN BED. PATIENT DID NOT HAVE ANY SIGNIFICANT CHANGE IN CONDITION DURING SHIFT. ALL NEEDS MET, ALL ORDERS CARRIED OUT. WILL ENDORSE CARE TO AM RN FOR CONTINUITY OF CARE.
--- NOTE | 2019-03-21 07:10 | NUR ---
RN INITIAL NOTES RECEIVED PT AWAKE, A/OX3. ON 02 VIA NC AT 4LPM. NO RESPIRATORY DISTRESS NOTED. NO SOB NOTED. NO SIGNS OF PAIN NOTED. IV LINE IN PLACE. FLUSHED WITH NS. FC IN PLACE. PT COMFORTABLE. BLE ELEVATED. CALL LIGHT WITHIN REACH. WILL MONITOR
[2019-03-21 07:12] LABS: BASOPHILS % (AUTO) 0.2 % (0.0-2.0); EOSINOPHILS % (AUTO) 2.1 % (0.0-6.0); HEMATOCRIT 23 % (33-45); HEMOGLOBIN 7.9 g/dL (11.5-14.8); LYMPHOCYTES # (AUTO) 0.2 /CMM (0.8-4.8); MEAN CORPUSCULAR HGB CONC 34 g/dl (31.0-36.0); MEAN CORPUSCULAR VOLUME 94 fL (82-100); MONOCYTES # (AUTO) 0.2 /CMM (0.1-1.30); MONOCYTES % (AUTO) 3.2 % (2.0-12.0); NEUTROPHILS % (AUTO) 90.5 % (43.0-81.0); PLATELET COUNT (AUTO) 69 /CMM (150-450); RED BLOOD CELL COUNT(AUTO) 2.48 MIL/uL (4.0-5.2); WHITE BLOOD COUNT (AUTO) 5.5 K/uL (4.3-11.0)
[2019-03-21 07:31] LABS: CREATININE 1.3 mg/dL (0.6-1.3); MAGNESIUM 1.9 mg/dL (1.8-2.4); PHOSPHORUS 2.5 mg/dL (2.5-4.9); POTASSIUM 4.1 mmol/L (3.5-5.1)
[2019-03-21] MEDS: ALBUTEROL FS 2.5 MG/3 ML VIAL.NEB NEB SCH ×4 (07:39→20:01)
[2019-03-21 08:00] VITALS: BP 138/94
[2019-03-21] MEDS: CEFUROXIME AXETIL 250 MG TABLET PO SCH ×2 (08:08→20:55)
[2019-03-21] MEDS: ALLOPURINOL 100 MG TABLET PO SCH (08:08)
[2019-03-21] MEDS: MEGESTROL ACETATE SUSP 400 MG/10 ML UDC PO SCH ×2 (08:08→17:29)
[2019-03-21] MEDS: HYDROCORTISONE SOD SUCCINATE 100 MG/2 ML VIAL IV SCH ×3 (08:08→17:29)
[2019-03-21] MEDS: PANTOPRAZOLE 40 MG TABLET.DR PO SCH (08:08)
--- NOTE | 2019-03-21 08:19 | NUR ---
WOUND CARE CONSULT: PT PRESENTS CACHECTIC WITH HEALED AREA TO RT POSTERIOR ILIAC CREST WITH DIFFUSE PURPLE DISCOLORATION AROUND IT. RECOMMENDATIONS MADE FOR SKIN PROTECTION. DISCUSSED WITH NURSING STAFF. WILL SEE PRN. Addendum: 03/21/19 at 0821 by MAGDA MENDOZA WNDNU Amended: Links added.
[2019-03-21] MEDS: HYDROCODONE/APAP 5/325MG 1 EACH TABLET PO PRN (08:48)
[2019-03-21 09:14] LABS: EOSINOPHILS % (MANUAL) 2 % (0-4); LYMPHOCYTES % (MANUAL) 4 % (16-48); MONOCYTES % (MANUAL) 3 % (0-11.0); NEUTROPHILS % (MANUAL) 91 (42-76)
--- NOTE | 2019-03-21 11:00 | NUR ---
RN NOTES SEEN AND EXAMINED BY DR VELA. PT A/OX1-2. ON 02 VIA NC AT 4LPM. NO DISTRESS NOTED. NO SIGNS OF PAIN NOTED. MD AWARE LATEST LAB VALUES. HGB 7.9/HCT 23. NO SIGNS OF ACTIVE BLEEDING NOTED. 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 WILL CONTINUE TO MONITOR
[2019-03-21 12:00] VITALS: BP 125/74
--- NOTE | 2019-03-21 15:30 | NUR ---
TELE1/TRAINING INSTRUCTOR OF CARE RECEIVED REPORT FROM NURSE JANET PT ENDORSED TO CONTINUE CARE.
[2019-03-21 16:00] VITALS: BP 119/74
--- NOTE | 2019-03-21 19:07 | NUR ---
TELE1/RN AM SHIFT END NOTES ALL NEEDS MET. PT NOTED WITH NO ACUTE CHANGE OF CONDITION SINCE TRANSFER OF CARE THIS AFTERNOON. PT ENDORSED TO PM NURSE TO CONTINUE CARE. CL WITHIN REACHED AND SAFETY MAINTAINED.
--- NOTE | 2019-03-21 19:30 | NUR ---
DIRECTOR MARKETING RCD PT W/DX ANEMIA; PT IS ALERT ABLE TO FOLLOW COMMANDS. ABLE TO TOLERATE ADLs. ON 4L NASAL CANNULA WITH DIMINISHED LUNG SOUNDS. NSR ON MONITOR. BRUISING TO LOWE BACK; WILL TURN AND REPOSITION Q2HRS. R WRIST 20 G SL PATENT. HOB ELEVATED. CONTINUE TO MONITOR.
[2019-03-21 20:00] VITALS: BP 109/71
--- NOTE | 2019-03-21 21:49 | NUR ---
COATER OPERATOR INSULATION BOARD PT TURNED AND REPOSITIONED; PROVIDED ORAL AND JAD CARE.
[2019-03-22] VITALS: BP_SYST 112; BP_SYST 123; BP_DIAS 52; BP_DIAS 79
[2019-03-22 04:00] VITALS: BP 136/86
[2019-03-22] MEDS: HYDROCODONE/APAP 5/325MG 1 EACH TABLET PO PRN ×3 (04:08→15:58)
--- NOTE | 2019-03-22 04:35 | NUR ---
RN NOTE PATIENT STATED THAT SHE HAS PAIN IN RIGHT WRIST, REMOVED IV, NO REDNESS NOTED, NO BLEEDING NOTED, PATIENT IS ALERT/ORIENTED X 4, REFUSED INSERTION OF ANOTHER IV, CHARGE NURSE IS AWARE
--- NOTE | 2019-03-22 07:15 | NUR ---
WORLD HISTORY TEACHER OPENING NOTES RECEIVED REPORT FROM PM NURSE. PT IN BED.AWAKE, A/OX2. ON 02 VIA NC AT 4LPM. MILD LABORED BREATHING NOTED. V/S STABLE. NO SIGNS OF PAIN NOTED. REFUSED INSERTION OF IV LINE. FC IN PLACE. BLE ELEVATED. CALL LIGHT WITHIN REACH. BED IS LOCKED AND IN LOW POSITION.SRX3.BED ALARM ON .WILL CONTINUE TO MONITOR.
[2019-03-22] MEDS: ALBUTEROL FS 2.5 MG/3 ML VIAL.NEB NEB SCH ×4 (07:50→19:46)
[2019-03-22] MEDS: PANTOPRAZOLE 40 MG TABLET.DR PO SCH (07:56)
[2019-03-22 08:00] VITALS: BP_SYST 127; BP_SYST 145; BP_DIAS 64; BP_DIAS 81
[2019-03-22] MEDS: HYDROCORTISONE SOD SUCCINATE 100 MG/2 ML VIAL IV SCH ×2 (08:06→16:55)
[2019-03-22] MEDS: CEFUROXIME AXETIL 250 MG TABLET PO SCH (08:06)
[2019-03-22] MEDS: MEGESTROL ACETATE SUSP 400 MG/10 ML UDC PO SCH ×2 (08:06→16:55)
[2019-03-22] MEDS: ALLOPURINOL 100 MG TABLET PO SCH (08:07)
--- NOTE | 2019-03-22 10:58 | NUR ---
WOUND CARE CONSULT: PT SEEN FOR RASH ON CHEST, ABDOMEN AND BACK, UNKNOWN ETIOLOGY. DEFER TO MD. DISCUSSED WITH NURSING STAFF, FILLER SHREDDER MACHINE, AND PHARMACIST. WILL SEE PRN.
[2019-03-22] MEDS ORDERED: diphenhydrAMINE HCL 50 MG/ML VIAL IV ONE (11:30)
--- NOTE | 2019-03-22 11:52 | NUR ---
LIVESTOCK JUDGING COACH NOTE CALL MADE TO FOR NEW RASH ON CHEST AND BACK.SEEN BY GOT NEW ORDERS.PATIENT ON ISOLATION PRECAUTIONS.PRODUCTION MATERIAL HANDLER RICCO MURPHY MADE AWARE ABOUT ID CONSULT.WILL CONTINUE TO MONITOR.
[2019-03-22 12:00] VITALS: BP 111/61
--- NOTE | 2019-03-22 13:00 | NUR ---
DISMANTLER NOTE SEEN BY NURSERY HAND BENNIE,UPDATED ABOUT PATIENT CONDITION,GOT ORDER FOR EKG,RELAYED RESULT.NNO.MADE AWARE THAT PATIENT HAS OCCASIONAL HR OF 140-160 NOT SUSTAINING. ADVISED TO CONTINUE TO MONITOR.
[2019-03-22 16:00] VITALS: BP 120/68
--- NOTE | 2019-03-22 17:35 | NUR ---
STAFF FIELD ENGINEER NOTE SEEN BY ODALYS GREGORIO,FROM ID.UPDATED ABOUT PATIENT CONDITION,SEEN PATIENT AT BEDSIDE,ASSESSMENT DONE.OK TO D/C ISOLATION.GOT NEW ORDERS.
[2019-03-22] MEDS: LORATADINE 10 MG TABLET PO SCH (18:16)
--- NOTE | 2019-03-22 19:28 | NUR ---
COVERSTITCH ELASTIC ATTACHER CLOSING NOTES PT IN BED.SLEEPING.EASILY AROUSABLE . ON 02 VIA NC AT 4LPM. DEEP BREATHING NOTED.SATURATING 99%. V/S STABLE. NO SIGNS OF PAIN NOTED. IV LINE INTACT AND PATENT.SON WAS AT BEDSIDE.ANSWERED ALL THE QUESTIONS. FC IN PLACE. BLE ELEVATED. CALL LIGHT WITHIN REACH. BED IS LOCKED AND IN LOW POSITION.SRX3.BED ALARM ON .ENDORSED TO PM NURSE FOR VASU.
--- NOTE | 2019-03-22 19:30 | NUR ---
SPEEDBOAT DRIVER NOTES RECEIVED ON BED SLEEPING,AROUSABLE TO VERBAL STIMULI.NOTED ABDOMINAL BREATHING ON AND OFF,O2 IN USED AT 2L/NC,O2 SAT 98%.FOLET CATH IN PACE DRAINING YELLOWISH OUTPUT.HOB ELEVATED FOR ASPIRATION PRECAUTION.SALINE LOCK LEFT HAND INTACT AND PATENT.PER REPORT BY DAY NURSE,SEEN BY WOUND CARE NURSE AND ID CONSULT DONE ON RASHES,NO NEED FOR ISOLATION,POSSIBLE REACTION TO DRUGS/ABX.FALL RISK,BED ON LOWEST POSITION AND LOCKED,CALL LIGHT IN REACH,NEEDS ANTICIPATED.
[2019-03-22 20:09] VITALS: BP 103/59
[2019-03-23] VITALS: BP 117/75
--- NOTE | 2019-03-23 00:46 | NUR ---
VAMP STITCHER NOTES AWAKE THIS TIME,RESTLESS DUE TO ITCHINESS FROM RASHES ON HER BACK AND CHEST. HOSPITALIST STEFANIA MADE AWARE WITH ORDERED TO GIVEN ONE TIME 25MG IV BENADRYL, ADMINISTERED WITH RELIEF
[2019-03-23] MEDS ORDERED: diphenhydrAMINE HCL 50 MG/ML VIAL IV ONE (01:00)
--- NOTE | 2019-03-23 02:17 | NUR ---
PEA VINER MECHANIC NOTES SLEEPING AT THIS TIME.O2 SAT 99% ON 4L/NC
[2019-03-23 04:00] VITALS: BP 121/43
--- NOTE | 2019-03-23 06:11 | NUR ---
METAL ROOFING MECHANIC NOTES FAIRLY RESTED,PAIN MANAGEMENT EFFECTIVE,STILL HAVING ITCHINESS MOSTLY ON HER BACK,REPOSITION SIDE TO SIDE BUT SHE KEEPS COMING BACK ON SUPINE POSITION.NO EPISODE OF SOB,O2 IN USED,HARRISON CATH DRAINS WELL.CALL LIGHT JOE REACH,NEEDS ATTENDED.
[2019-03-23 06:27] LABS: BASOPHILS % (AUTO) 0.1 % (0.0-2.0); EOSINOPHILS % (AUTO) 5.3 % (0.0-6.0); HEMATOCRIT 25 % (33-45); HEMOGLOBIN 8.5 g/dL (11.5-14.8); LYMPHOCYTES # (AUTO) 0.2 /CMM (0.8-4.8); LYMPHOCYTES % (AUTO) 4.3 % (20.0-44.0); MEAN CORPUSCULAR HGB CONC 34 g/dl (31.0-36.0); MEAN CORPUSCULAR VOLUME 94 fL (82-100); MONOCYTES # (AUTO) 0.3 /CMM (0.1-1.30); NEUTROPHILS # (AUTO) 4.1 /CMM (1.8-8.9); NEUTROPHILS % (AUTO) 84.3 % (43.0-81.0); PLATELET COUNT (AUTO) 77 /CMM (150-450); RED BLOOD CELL COUNT(AUTO) 2.65 MIL/uL (4.0-5.2); WHITE BLOOD COUNT (AUTO) 4.9 K/uL (4.3-11.0)
[2019-03-23 06:44] LABS: ALANINE AMINOTRANSFERASE 24 U/L (12-78); ALBUMIN 1.6 g/dL (3.4-5.0); ALKALINE PHOSPHATASE 47 U/L (46-116); ASPARTATE AMINOTRANSFERASE 12 U/L (15-37); BILIRUBIN,TOTAL 0.3 mg/dL (0.2-1.0); CALCIUM, SERUM 8.1 mg/dL (8.5-10.1); CARBON DIOXIDE 19 mmol/L (21-32); CHLORIDE 106 mmol/L (98-107); CREATININE 1.4 mg/dL (0.6-1.3); GLUCOSE 119 mg/dL (74-106); MAGNESIUM 1.8 mg/dL (1.8-2.4); PHOSPHORUS 2.6 mg/dL (2.5-4.9); POTASSIUM 3.3 mmol/L (3.5-5.1); SODIUM SERUM 133 mmol/L (136-145); TOTAL PROTEIN, SERUM 10.6 g/dL (6.4-8.2); UREA NITROGEN, BLOOD 56 mg/dL (7-18)
--- NOTE | 2019-03-23 07:15 | NUR ---
VARNISHING UNIT TOOL SETTER OPENING NOTES RECEIVED REPORT FROM PM NURSE. PT IN BED.ON TELE MONITOR SR HR 92.SLEEPING. ON 02 VIA NC AT 4LPM. DEEP BREATHING NOTED.SATURATING 99%. V/S STABLE. NO SIGNS OF PAIN NOTED. FC IN PLACE. BLE ELEVATED. CALL LIGHT WITHIN REACH. BED IS LOCKED AND IN LOW POSITION.SRX3.BED ALARM ON .WILL CONTINUE TO MONITOR.
[2019-03-23] MEDS: ALBUTEROL FS 2.5 MG/3 ML VIAL.NEB NEB SCH ×4 (07:35→19:50)
[2019-03-23] MEDS: PANTOPRAZOLE 40 MG TABLET.DR PO SCH (07:54)
[2019-03-23 08:00] VITALS: BP 118/75
[2019-03-23 08:07] LABS: BAND % (MANUAL) 3 % (0.0-5.0); EOSINOPHILS % (MANUAL) 5 % (0-4); LYMPHOCYTES % (MANUAL) 6 % (16-48); MONOCYTES % (MANUAL) 6 % (0-11.0); NEUTROPHILS % (MANUAL) 80 (42-76)
[2019-03-23] MEDS: MEGESTROL ACETATE SUSP 400 MG/10 ML UDC PO SCH ×2 (09:16→16:15)
[2019-03-23] MEDS: HYDROCORTISONE SOD SUCCINATE 100 MG/2 ML VIAL IV SCH ×2 (09:16→16:15)
[2019-03-23] MEDS: ALLOPURINOL 100 MG TABLET PO SCH (09:16)
[2019-03-23] MEDS: LORATADINE 10 MG TABLET PO SCH (09:16)
[2019-03-23] MEDS ORDERED: POTASSIUM CHLORIDE 20 MEQ TAB.PRT.SR PO SCH (10:00)
--- NOTE | 2019-03-23 10:00 | NUR ---
AUTISTIC TEACHER NOTE SEEN BY NATURAL RESOURCES PROFESSOR BENNIE,GOT NEW ORDERS.
[2019-03-23] MEDS: POTASSIUM CHLORIDE 20 MEQ POWDER PACKET GT SCH ×2 (10:37→11:46)
[2019-03-23 12:00] VITALS: BP 131/81
[2019-03-23 16:00] VITALS: BP 123/67
--- NOTE | 2019-03-23 16:22 | NUR ---
PHYSICAL INTEGRATION PRACTITIONER NOTE SEEN BY DIETITIAN,UPDATED ABOUT PATIENT CONDITION WITH LOW ALBUMIN LEVEL.SHE SAID WILL DO RECOMMENDATIONS.
--- NOTE | 2019-03-23 16:24 | NUR ---
BRICK AND TILE MAKING MACHINE OPERATOR NOTE SEEN BY GOT NEW ORDERS.
--- NOTE | 2019-03-23 19:25 | NUR ---
GRINDING MACHINE OPERATOR CLOSING NOTES PATIENT IN BED.AXOX2.ON 02 VIA NC AT 4LPM. .SATURATING 98%. V/S STABLE. NO SIGNS OF PAIN NOTED. IV LINE INTACT AND PATENT.SON AT BEDSIDE.ANSWERED ALL THE QUESTIONS. FC IN PLACE.DRAINING CLEAR YELLOW URINE.REFUSED TO KEEP BLE ELEVATED. CALL LIGHT WITHIN REACH. BED IS LOCKED AND IN LOW POSITION.SRX3.BED ALARM ON .SEEN BY ANIMAL CARE TECHNICIAN KARIN .ENDORSED TO PM NURSE FOR VASU.
--- NOTE | 2019-03-23 19:46 | NUR ---
JANITOR HEAD NOTE: RECEIVED PT ON BED ASLEEP BUT AROUSES EASILY TO VERBAL AND TACTILE STIMULI. NO APPARENT DISTRESS NOTED. NO COMPLAINTS OF PAIN OR DISCOMFORT AT THIS TIME. ON 3LPM NASAL CANNULA, SATURATING WELL. ON TELE MONITOR SINUS RHYTHM HR 100BPM. HARRISON CATH INTACT AND PATENT, DRAINING WELL. KEPT CLEAN, DRY AND COMFORTABLE. CALL LIGHT PLACED WITHIN REACH. SAFETY AND FALL PRECAUTIONS OBSERVED AND MAINTAINED. WILL CONTINUE TO MONITOR PT.
[2019-03-23 20:00] VITALS: BP 112/65
[2019-03-24] VITALS: BP 124/80
[2019-03-24 04:00] VITALS: BP 115/71
[2019-03-24 06:38] LABS: CALCIUM, SERUM 7.8 mg/dL (8.5-10.1); MAGNESIUM 1.7 mg/dL (1.8-2.4); PHOSPHORUS 2.1 mg/dL (2.5-4.9); POTASSIUM 3.6 mmol/L (3.5-5.1)
--- NOTE | 2019-03-24 06:43 | NUR ---
ANALYSIS MGR NOTE: NO CHANGES NOTED THROUGHOUT THE SHIFT. NO APPARENT DISTRESS NOTED. ON 3LPM NASAL CANNULA, SATURATING WELL. PT ABLE TO TRANSFER FROM BED TO BEDSIDE COMMODE, TOLERATED WELL. NO SOB ON EXERTION NOTED. SINUS RHYTHM ON TELE MONITOR HR 94 BPM. IV ON LEFT HAND #22 INTACT AND PATENT, FLUSHING WELL. HARRISON CATH INTACT, DRAINED 1200ML OF URINE OUTPUT. KEPT CLEAN, DRY AND COMFORTABLE. SAFETY AND FALL PRECAUTIONS OBSERVED AND MAINTAINED. WILL ENDORSE TO DAY SHIFT RN FOR CONTINUITY OF CARE
[2019-03-24] MEDS: PANTOPRAZOLE 40 MG TABLET.DR PO SCH (07:21)
[2019-03-24 07:22] LABS: BASOPHILS % (AUTO) 0.3 % (0.0-2.0); EOSINOPHILS % (AUTO) 5.5 % (0.0-6.0); HEMATOCRIT 24 % (33-45); HEMOGLOBIN 8.2 g/dL (11.5-14.8); LYMPHOCYTES # (AUTO) 0.3 /CMM (0.8-4.8); LYMPHOCYTES % (AUTO) 8.1 % (20.0-44.0); MEAN CORPUSCULAR HGB CONC 34 g/dl (31.0-36.0); MEAN CORPUSCULAR VOLUME 94 fL (82-100); MONOCYTES # (AUTO) 0.4 /CMM (0.1-1.30); NEUTROPHILS # (AUTO) 3.2 /CMM (1.8-8.9); NEUTROPHILS % (AUTO) 77.1 % (43.0-81.0); PLATELET COUNT (AUTO) 81 /CMM (150-450); RED BLOOD CELL COUNT(AUTO) 2.57 MIL/uL (4.0-5.2); WHITE BLOOD COUNT (AUTO) 4.2 K/uL (4.3-11.0)
--- NOTE | 2019-03-24 07:35 | NUR ---
RN OPENING NOTES RECEIVED PATIENT SLEEPING IN BED, EASILY AROUSED. SHE IS AO X2, MALIAN SPEAKING, UNSTEADY GAIT. SHE IS ON 3L OF OXYGEN VIA NC, SHOWS NO S/SX OF RESP DISTRESS OR SOB AT THIS TIME. HARRISON CATHETER IS INTACT AND PATENT, IV SITE ON L HAND IS NOT PATENT, WILL START A NEW IV LINE. SAFETY MEASURES HAVE BEEN IMPLEMENTED, CALL LIGHT IS WITHIN REACH, BED IS IN LOWEST AND LOCKED POSITION, SIDE RAILS UP X2, WILL CONTINUE TO MONITOR FOR ANY CHANGES.
[2019-03-24] MEDS: ALBUTEROL FS 2.5 MG/3 ML VIAL.NEB NEB SCH ×4 (07:56→19:50)
[2019-03-24 08:00] VITALS: BP 127/83
[2019-03-24 08:37] LABS: BAND % (MANUAL) 5 % (0.0-5.0); EOSINOPHILS % (MANUAL) 8 % (0-4); LYMPHOCYTES % (MANUAL) 4 % (16-48); MONOCYTES % (MANUAL) 6 % (0-11.0); NEUTROPHILS % (MANUAL) 77 (42-76)
[2019-03-24] MEDS: Magnesium 1GM/D5W 100ML PREMIX 100 ML IV SCH ×2 (09:53→11:08)
[2019-03-24] MEDS: HYDROCORTISONE SOD SUCCINATE 100 MG/2 ML VIAL IV SCH ×2 (09:54→17:09)
[2019-03-24] MEDS: MEGESTROL ACETATE SUSP 400 MG/10 ML UDC PO SCH ×2 (09:54→17:09)
[2019-03-24] MEDS: ALLOPURINOL 100 MG TABLET PO SCH (09:54)
[2019-03-24] MEDS: LORATADINE 10 MG TABLET PO SCH (09:54)
[2019-03-24] MEDS: NEUTRA PHOS 1 POWD.PACKET PO SCH ×2 (09:57→17:09)
[2019-03-24 12:00] VITALS: BP 102/55
[2019-03-24] MEDS: HYDROCODONE/APAP 5/325MG 1 EACH TABLET PO PRN (13:21)
--- NOTE | 2019-03-24 14:30 | NUR ---
RT UNAWARE COMPUTER SCANNER WAS DOWN DURING Q4 TX TIME. TX GIVEN AT 1142. SpO2 97%, HR 100. NO SOB NOTED. Addendum: 03/24/19 at 1434 by ИРИНА DUMONT RT Amended: Links added.
[2019-03-24 16:00] VITALS: BP_SYST 102; BP_SYST 110; BP_DIAS 55; BP_DIAS 72
--- NOTE | 2019-03-24 19:14 | NUR ---
RN CLOSING NOTES PATIENT IS RESTING COMFORTABLY IN BED, SHOWS NO S/SX OF DISTRESS OR PAIN, SON AT BEDSIDE. PATIENTS NEEDS HAVE BEEN MET. PATIENT IS LESS AGITATED AND ANXIOUS COMPARED TO THE MORNING. SAFETY MEASURES HAVE BEEN IMPLEMENTED, CALL LIGHT IS WITHIN REACH, BED IS IN LOWEST AND LOCKED POSITION, SIDE RAILS UP X2, PATIENT HAS BEEN ENDORSED TO NIGHTSHIFT RN.
--- NOTE | 2019-03-24 19:30 | NUR ---
PRIZE FIGHTER NOTE: RECEIVED PT ON BED ASLEEP BUT AROUSES EASILY TO VERBAL AND TACTILE STIMULI. NO APPARENT DISTRESS NOTED. NO COMPLAINTS OF PAIN OR DISCOMFORT AT THIS TIME. ON 3LPM NASAL CANNULA, SATURATING WELL. ON TELE MONITOR SINUS TACHY HR 104 BPM. HARRISON CATH INTACT AND PATENT, DRAINING WELL. IV ON RIGHT HAND #24 INTACT AND FLUSHING WELL. NO SIGNS/SYMPTOMS OF INFILTRATION NOTED. KEPT CLEAN, DRY AND COMFORTABLE. CALL LIGHT PLACED WITHIN REACH. SAFETY AND FALL PRECAUTIONS OBSERVED AND MAINTAINED. WILL CONTINUE TO MONITOR PT.
[2019-03-24 20:00] VITALS: BP 97/62
[2019-03-25] VITALS: BP 115/70
[2019-03-25 04:00] VITALS: BP 115/68
[2019-03-25 08:00] VITALS: BP 121/74
[2019-03-25] MEDS: PANTOPRAZOLE 40 MG TABLET.DR PO SCH (08:05)
[2019-03-25] MEDS: MEGESTROL ACETATE SUSP 400 MG/10 ML UDC PO SCH ×2 (08:05→18:15)
[2019-03-25] MEDS: ALBUTEROL FS 2.5 MG/3 ML VIAL.NEB NEB SCH ×4 (08:05→19:33)
[2019-03-25] MEDS: LORATADINE 10 MG TABLET PO SCH (08:05)
[2019-03-25] MEDS: ALLOPURINOL 100 MG TABLET PO SCH (08:06)
[2019-03-25] MEDS: HYDROCORTISONE SOD SUCCINATE 100 MG/2 ML VIAL IV SCH ×2 (08:35→18:15)
--- NOTE | 2019-03-25 09:42 | NUR ---
rn notes received patient from rn earlier. patient fed by daughter, cedrick, safely. patient awake, alert, converses mostly in her language.maintained safety. visual checks done.monitor patient
[2019-03-25 12:00] VITALS: BP 118/70
[2019-03-25] MEDS: ACETAMINOPHEN 325 MG TABLET PO PRN (12:26)
[2019-03-25] MEDS: Magnesium 1GM/D5W 100ML PREMIX 100 ML IV SCH ×2 (12:26→19:30)
[2019-03-25] MEDS: ENSURE ENLIVE CHOC 237 ML CAN PO SCH (13:00)
[2019-03-25 15:11] LABS: ABG BASE EXCESS -6.7 mmol/L; ABG OXYGEN SATURATION 97.7 % (92.0-98.5); ABG PCO2 25.8 mmHg (35.0-45.0); ABG PH 7.429 (7.350-7.450); ABG PO2 106.4 mmHg (75.0-100.0); AaDO2 62.8 mmHg; COHb 1.2 % (0.5-1.5); MetHb 0.8 % (0.0-1.5); O2Hb 95.7 % (94.0-97.0); SITE, ABG Right Brachial; VENT MODE, BG N/C
[2019-03-25] MEDS ORDERED: Magnesium 1GM/D5W 100ML PREMIX PIGGYBACK IV ONE (15:30)
--- NOTE | 2019-03-25 15:53 | NUR ---
1300-patient son in the room for visit as well as her sister, cedrick, they spoke with case ,manager internet kathleen regarding plan pending discharge. 1530-patient noted to get restless, appears anxious, coached her to relax and calm ( with help from arnenian speaking nurse)down but keeps on being restless.ABG done, Dr. Xiong notified of the results, informed her of observed patient behavior, MD with orders, informed son danielle about MD order for 1 dose of xanax, he said okay to give this time.
[2019-03-25 16:00] VITALS: BP 105/63
[2019-03-25] MEDS ORDERED: Magnesium 1GM/D5W 100ML PREMIX 100 ML IV SCH (16:00)
[2019-03-25] MEDS ORDERED: ALPRAZOLAM 0.25 MG TABLET PO ONE (16:00)
--- NOTE | 2019-03-25 19:20 | NUR ---
SMT OPERATOR OPENING NOTES RECEIVED PATIENT IN BED, A/O X2, HUNGARIAN SPEAKING. PER REPORT PATIENT HAS UNSTEADY GAIT. ON TELE MONITOR SINUS TACHY WITH HR 100S. DENIES ANY PAIN AT THE MOMENT. ON 3L OF OXYGEN VIA NC, SHOWS NO S/S OF RESP DISTRESS OR SOB AT THIS TIME. HARRISON CATHETER NOTED OFF THE FLOOR, DRAINING WELL. IV SITE RIGHT WRIST 24G FLUSHING AND PATENT, SITE C/D/I, COVERED WITH BURN NET FOR PATIENT SAFETY. SAFETY MEASURES IN PLACE; CALL LIGHT WITHIN REACH, BED IS IN LOWEST AND LOCKED POSITION, SIDE RAILS UP X3, WILL CONTINUE TO MONITOR PATIENT. PER AM NURSE REPORT, HE ADMINISTERED 2 BAGS OF MAGNESIUM.
--- NOTE | 2019-03-25 19:45 | NUR ---
rn notes 1800-patient son in the room, states patient able to feed herself. patient appears calmer this time.discussed with son(danielle) about patient behavior mostly when she is restless (anxious?). 1900-patient resting, report given to rn for further care
[2019-03-25 20:00] VITALS: BP 112/58
[2019-03-26] VITALS: BP 110/65
[2019-03-26] MEDS: ENSURE ENLIVE CHOC 237 ML CAN PO SCH ×3 (01:03→16:18)
[2019-03-26 04:00] VITALS: BP 116/67
[2019-03-26 06:50] LABS: BASOPHILS % (AUTO) 0.2 % (0.0-2.0); EOSINOPHILS % (AUTO) 3.9 % (0.0-6.0); HEMATOCRIT 25 % (33-45); HEMOGLOBIN 8.5 g/dL (11.5-14.8); LYMPHOCYTES # (AUTO) 0.5 /CMM (0.8-4.8); LYMPHOCYTES % (AUTO) 11.8 % (20.0-44.0); MEAN CORPUSCULAR HGB CONC 34 g/dl (31.0-36.0); MEAN CORPUSCULAR VOLUME 94 fL (82-100); MONOCYTES # (AUTO) 0.3 /CMM (0.1-1.30); MONOCYTES % (AUTO) 6.9 % (2.0-12.0); NEUTROPHILS # (AUTO) 3.1 /CMM (1.8-8.9); NEUTROPHILS % (AUTO) 77.2 % (43.0-81.0); PLATELET COUNT (AUTO) 119 /CMM (150-450); RED BLOOD CELL COUNT(AUTO) 2.63 MIL/uL (4.0-5.2)
--- NOTE | 2019-03-26 07:01 | NUR ---
LUMBER SCALER CLOSING NOTES PATIENT IN BED, A/O X2, AMHARIC SPEAKING. ON TELE MONITOR SINUS TACHY WITH HR 100S. ON 3L OF OXYGEN VIA NC, SHOWS NO S/S OF RESP DISTRESS OR SOB AT THIS TIME. HARRISON CATHETER OFF THE FLOOR, DRAINING WELL. IV SITE RIGHT WRIST 24G FLUSHING AND PATENT, SITE C/D/I, COVERED WITH BURN NET FOR PATIENT SAFETY. REPOSITIONED Q2H. PATIENT C/O ABD PAIN/CONSTIPATION, PATIENT HAD BOWEL MOVEMENT LAST NIGHT X1 VIA BEDSIDE COMMODE, HOWEVER VERY HARD STOOL NOTED, WILL ENDORSE TO AM RN. SAFETY MEASURES MAINTAINED; CALL LIGHT WITHIN REACH, BED IS IN LOWEST AND LOCKED POSITION, SIDE RAILS UP X3, WILL CONTINUE TO MONITOR PATIENT. WILL ENDORSE TO AM RN FOR VASU.
[2019-03-26 07:05] LABS: ALBUMIN 1.5 g/dL (3.4-5.0); BILIRUBIN,TOTAL 0.2 mg/dL (0.2-1.0); CALCIUM, SERUM 7.4 mg/dL (8.5-10.1); MAGNESIUM 2.1 mg/dL (1.8-2.4); PHOSPHORUS 2.7 mg/dL (2.5-4.9); TOTAL PROTEIN, SERUM 9.1 g/dL (6.4-8.2)
[2019-03-26] MEDS: ALBUTEROL FS 2.5 MG/3 ML VIAL.NEB NEB SCH ×4 (07:40→19:30)
[2019-03-26 08:00] VITALS: BP 120/78
[2019-03-26] MEDS: Z GUARD REMEDY 2 OZ OINT TP PRN (08:30)
[2019-03-26] MEDS: LORATADINE 10 MG TABLET PO SCH (08:30)
[2019-03-26] MEDS: ALLOPURINOL 100 MG TABLET PO SCH (08:31)
[2019-03-26] MEDS: MEGESTROL ACETATE SUSP 400 MG/10 ML UDC PO SCH ×2 (08:31→16:18)
[2019-03-26] MEDS: HYDROCORTISONE SOD SUCCINATE 100 MG/2 ML VIAL IV SCH ×2 (08:32→16:18)
[2019-03-26] MEDS: PANTOPRAZOLE 40 MG TABLET.DR PO SCH (08:33)
--- NOTE | 2019-03-26 10:00 | NUR ---
RN NOTE MESSAGED DR VELA TO OBTAIN ENEMA PT UNEASY AND CO PAIN IN ABDOMEN, BUT WAS ABLE TO PASS THE GAS AND HAD LARGE BM. CALMED DOWN THEN..
[2019-03-26] MEDS: POTASSIUM CHLORIDE 20 MEQ TAB.PRT.SR PO SCH ×3 (11:29→13:19)
[2019-03-26] MEDS: ACETAMINOPHEN 325 MG TABLET PO PRN (11:51)
[2019-03-26] MEDS: MAG HYDROX/AL HYDROX/SIMETH 30 ML UDC PO PRN (11:51)
[2019-03-26 12:00] VITALS: BP 112/75
[2019-03-26] MEDS ORDERED: ALPRAZOLAM 0.25 MG TABLET PO PRN (15:00)
[2019-03-26 16:00] VITALS: BP 102/58
--- NOTE | 2019-03-26 16:00 | NUR ---
RN NOTE PT REMAINED ANXIOUS, HOUSE PIPING INSPECTOR PAIN IN ABDOMEN, MEDS GIVEN AND RELIEVED, OCCASIONALLY CO BEING SHORT OF BREATH, VERY ANXIOUS AND MOANING NON STOP. OXYGEN SATURATION REMAINED 96% ON NC 3 L/MIN. GOT AN ORDER FOR XANAX AND STOOL SOFTENER.
[2019-03-26] MEDS ORDERED: FEE PK DOSING 1 MIN EA MC ONE (16:16)
[2019-03-26] MEDS: DOCUSATE SODIUM LIQ 100 MG/10 ML UDC NG SCH (16:18)
[2019-03-26] MEDS: AZTREONAM 1 G in IV NS 0.9% 100 ML IV SCH (16:45)
[2019-03-26] MEDS ORDERED: VANCOMYCIN 1 GM in IV D5W 250 ML IV ONE (18:00)
--- NOTE | 2019-03-26 18:30 | NUR ---
RN NOTE PT'S FAMILY AT BEDSIDE, PT CO BEING SOB, ABG ORDERED AND OBTAINED, NORMAL, PT ANXIOUS, XANAX GIVEN EARLIER DID NOT HELP, ABLE TO EAT DINNER 100%.
[2019-03-26 18:56] LABS: ABG BASE EXCESS -5.9 mmol/L; ABG OXYGEN SATURATION 97.3 % (92.0-98.5); ABG PCO2 25.4 mmHg (35.0-45.0); ABG PH 7.446 (7.350-7.450); ABG PO2 98.6 mmHg (75.0-100.0); AaDO2 85.5 mmHg; COHb 0.4 % (0.5-1.5); MetHb 0.7 % (0.0-1.5); O2Hb 96.2 % (94.0-97.0); VENT MODE, BG NASAL CANNULA
[2019-03-26 19:02] LABS: SITE, ABG Right Brachial
[2019-03-26] MEDS: IPRATROPIUM NEB FS 0.5 MG/2.5 ML AMPUL.NEB NEB SCH (19:30)
--- NOTE | 2019-03-26 19:33 | NUR ---
RT Pt family requested to skip HHN tx due to pt anxiety. No SOB or respiratory distress noted at this time. Addendum: 03/26/19 at 1936 by TYLER MTZ RT Amended: Links added.
[2019-03-26 20:00] VITALS: BP 106/61
--- NOTE | 2019-03-26 20:00 | NUR ---
RADIOLOGIC TECHNOLOGIST CHIEF NOTE PT IN BED AWAKE. ANXIOUS. FAMILY AT BED SIDE. A/O X 2 CHINESE SPEAKING. NO DISTRESS OR DISCOMFORT NOTED. DENIES PAIN. ON 3 L VIA N/C O2 SAT 96%. ON TELE S T HR 111. F/C INTACT AND PATENT DRAINING YELLOWISH COLOR URINE. GENERAL RASH IS CLEARED AWAY. RT WRIST #24 G INTACT AND PATENT. KEPT HER DRY AND CLEAN. ALL NEEDS ATTENDED. REPOSITION HER FOR COMFORT AND SKIN MANAGEMENT.
[2019-03-27] VITALS: BP 111/69
[2019-03-27] MEDS: HYDROCODONE/APAP 5/325MG 1 EACH TABLET PO PRN ×2 (02:14→16:10)
[2019-03-27 04:00] VITALS: BP 115/73
[2019-03-27] MEDS: AZTREONAM 1 G in IV NS 0.9% 100 ML IV SCH ×2 (04:36→18:01)
[2019-03-27 06:33] LABS: BASOPHILS % (AUTO) 0.6 % (0.0-2.0); EOSINOPHILS % (AUTO) 4.4 % (0.0-6.0); HEMATOCRIT 25 % (33-45); HEMOGLOBIN 8.6 g/dL (11.5-14.8); LYMPHOCYTES # (AUTO) 0.6 /CMM (0.8-4.8); LYMPHOCYTES % (AUTO) 16.8 % (20.0-44.0); MEAN CORPUSCULAR HGB CONC 34 g/dl (31.0-36.0); MEAN CORPUSCULAR VOLUME 94 fL (82-100); MONOCYTES # (AUTO) 0.4 /CMM (0.1-1.30); MONOCYTES % (AUTO) 10.7 % (2.0-12.0); NEUTROPHILS # (AUTO) 2.5 /CMM (1.8-8.9); NEUTROPHILS % (AUTO) 67.5 % (43.0-81.0); PLATELET COUNT (AUTO) 149 /CMM (150-450); RED BLOOD CELL COUNT(AUTO) 2.68 MIL/uL (4.0-5.2); WHITE BLOOD COUNT (AUTO) 3.7 K/uL (4.3-11.0)
--- NOTE | 2019-03-27 06:48 | NUR ---
HEAD WAITER/WAITRESS NOTE PT IN BED ASLEEP, AROUSABLE. NO DISTRESS OR DISCOMFORT NOTED. NO S/S OF PAIN NOTED. ON TELE MONITOR SINUS TACH WITH OCCASIONALLY PAC HR 105. SIDE RAILS UP X 3. CALL LIGHT WITHIN REACH. VSS. WILL ENDORSE TO DAY SHIFT NURSE FOR CONTINUE TO CARE.
[2019-03-27 06:53] LABS: CALCIUM, SERUM 7.3 mg/dL (8.5-10.1); MAGNESIUM 1.9 mg/dL (1.8-2.4); PHOSPHORUS 1.9 mg/dL (2.5-4.9); POTASSIUM 4.5 mmol/L (3.5-5.1)
--- NOTE | 2019-03-27 07:25 | NUR ---
QUALITY CONTROL COORDINATOR OPENING NOTE RECEIVED REPORT FROM PM NURSE.PT IN BED SLEEPING.EASILY AROUSABLE. A/O X 2 MALDIVIAN SPEAKING. DEEP BREATHING NOTED. DENIES PAIN. ON ROOM AIR.SAT 96%. ON TELEMONITOR SR HR 99. F/C INTACT AND PATENT DRAINING YELLOWISH COLOR URINE. RT WRIST #24 G INTACT AND PATENT. .SAFETY AND ASPIRATION PRECAUTIONS IN PLACE.BED IS LOW AND IN LOCKED POSITION.CALL LIGHT IN REACH.BED ALARM ON.WILL CONTINUE TO MONITOR.
[2019-03-27] MEDS: PANTOPRAZOLE 40 MG TABLET.DR PO SCH (07:59)
[2019-03-27 08:00] VITALS: BP 106/66
[2019-03-27] MEDS: ALLOPURINOL 100 MG TABLET PO SCH (08:07)
[2019-03-27] MEDS: DOCUSATE SODIUM LIQ 100 MG/10 ML UDC NG SCH ×2 (08:07→16:07)
[2019-03-27] MEDS: LORATADINE 10 MG TABLET PO SCH (08:07)
[2019-03-27] MEDS: MEGESTROL ACETATE SUSP 400 MG/10 ML UDC PO SCH ×2 (08:07→16:07)
[2019-03-27] MEDS: HYDROCORTISONE SOD SUCCINATE 100 MG/2 ML VIAL IV SCH ×2 (08:07→16:08)
[2019-03-27] MEDS: ENSURE ENLIVE CHOC 237 ML CAN PO SCH ×2 (08:09→18:02)
[2019-03-27] MEDS: ALBUTEROL FS 2.5 MG/3 ML VIAL.NEB NEB SCH ×4 (08:15→19:49)
[2019-03-27] MEDS: IPRATROPIUM NEB FS 0.5 MG/2.5 ML AMPUL.NEB NEB SCH ×4 (08:16→19:49)
[2019-03-27] MEDS ORDERED: NEUTRA PHOS 1 POWD.PACKET NG ONE (09:00)
[2019-03-27] MEDS: NEUTRA PHOS 1 POWD.PACKET PO SCH ×2 (09:30→17:30)
[2019-03-27] MEDS: MAG HYDROX/AL HYDROX/SIMETH 30 ML UDC PO PRN (10:51)
[2019-03-27] MEDS ORDERED: ALPRAZOLAM 0.25 MG TABLET PO PRN (11:00)
[2019-03-27 12:00] VITALS: BP 105/54
--- NOTE | 2019-03-27 12:00 | NUR ---
STABLE CLEANER NOTE NUTRA PHOS NOT GIVEN ,ONLY TWO PKT FROM GIVEN.DOUBLE ORDER FROM AND .
--- NOTE | 2019-03-27 12:00 | NUR ---
SUPERVISING DEPUTY NOTE SEEN BY ,UPDATED ABOUT PATIENT CONDITION.GOT NEW ORDER FOR PULMONOLOGY CONSULT.AND NEW ORDERS.WILL CONTINUE TO MONITOR.
[2019-03-27] MEDS: VANCOMYCIN 0.75 GM in IV D5W 250 ML IV SCH (12:31)
[2019-03-27] MEDS: ACETAMINOPHEN 325 MG TABLET PO PRN (13:42)
--- NOTE | 2019-03-27 14:00 | NUR ---
TECHNICAL COORDINATOR NOTE SEEN BY .PATIENT C/O ABDOMINAL PAIN,MILD DISTENTION WITH GAS.PRN MAALOX GIVEN. MADE AWARE.GOT NEW ORDERS.
[2019-03-27 16:00] VITALS: BP 117/69
--- NOTE | 2019-03-27 19:19 | NUR ---
PICKER FEEDER CLOSING NOTE ENDORSED TO PM NURSE FOR VASU.PATIENT IS STABLE.
[2019-03-27 20:00] VITALS: BP 102/68
--- NOTE | 2019-03-27 20:00 | NUR ---
GRANULATOR OPERATOR NOTE PT IN BED ASLEEP, AROUSABLE. A/O 1-2 BELARUSIAN SPEAKING. NO SOB, NO DISTRESS OR DISCOMFORT NOTED. NO S/S OF PAIN NOTED. ON TELE ST HR 111 WITH 1ST DEGREE AV BLOCK AND OCCASIONAL PVC. F/C INTACT AND PATENT DRAINING YELLOWISH COLOR URINE. RT WRIST WITH 24 G SL. SIDE RAILS UP X 2 AND CALL LIGHT WITHIN REACH. VSS. CONTINUE TO MONITOR HIM.
[2019-03-28] VITALS: BP 108/68
[2019-03-28 04:00] VITALS: BP 114/70
[2019-03-28] MEDS: AZTREONAM 1 G in IV NS 0.9% 100 ML IV SCH (05:23)
--- NOTE | 2019-03-28 06:25 | NUR ---
SWITCHING OPERATOR NOTE PT IN BED ASLEEP, AROUSABLE. NO DISTRESS OR DISCOMFORT NOTED. NO S/S OF PAIN NOTED. ON TELE MONITOR SINUS TACH WITH OCCASIONALLY PAC HR 110. SIDE RAILS UP X 3. CALL LIGHT WITHIN REACH. VSS. WILL ENDORSE TO DAY SHIFT NURSE FOR CONTINUE TO CARE
[2019-03-28 06:40] LABS: BASOPHILS % (AUTO) 0.7 % (0.0-2.0); EOSINOPHILS % (AUTO) 6.1 % (0.0-6.0); HEMATOCRIT 25 % (33-45); HEMOGLOBIN 8.5 g/dL (11.5-14.8); LYMPHOCYTES # (AUTO) 0.7 /CMM (0.8-4.8); LYMPHOCYTES % (AUTO) 18.2 % (20.0-44.0); MEAN CORPUSCULAR HGB CONC 34 g/dl (31.0-36.0); MEAN CORPUSCULAR VOLUME 94 fL (82-100); MONOCYTES # (AUTO) 0.5 /CMM (0.1-1.30); MONOCYTES % (AUTO) 11.9 % (2.0-12.0); NEUTROPHILS # (AUTO) 2.5 /CMM (1.8-8.9); NEUTROPHILS % (AUTO) 63.1 % (43.0-81.0); PLATELET COUNT (AUTO) 172 /CMM (150-450); RED BLOOD CELL COUNT(AUTO) 2.67 MIL/uL (4.0-5.2)
[2019-03-28 07:03] LABS: CALCIUM, SERUM 7.1 mg/dL (8.5-10.1); MAGNESIUM 1.7 mg/dL (1.8-2.4); PHOSPHORUS 1.7 mg/dL (2.5-4.9); POTASSIUM 4.3 mmol/L (3.5-5.1)
--- NOTE | 2019-03-28 07:30 | NUR ---
RN NOTES RECEIVED PATIENT IN BED, A/A/O X1-2, ABLE TO EXPRESS SELF IN SALVADOREAN ONLY, PATIENT CRYING AND MOANING, WITH GUARDING GESTURES ON THE ABDOMEN AND REPETITIVE WORDS " PIPI" , PATIENT INFORMED THAT SHE HAS HARRISON ON AND WILL ADMINISTER MEDICATION FOR THE ABDOMINAL PAIN. WITH NASAL CANNULA IN PLACE 02 AT 3LPM, NO SIGN OF SOB, SATING FINE. SINUS TACHYCARDIA WITH BBB ON THE MONITOR WITH HR ON THE 113. IV ACCESS G 24 ON THE R WRIST, IN PLACE BUT LEAKING UPON CHECKING, WILL REMOVED AND REPLACE A NEW ONE. SAFETY MEASURES OBSERVED AND MAINTAINED, HOB KEPT AT 30-45 DEGREE, SRX2 RAISED, BED LOW AND LOCKED POSITIONED, CALL LIGHT PLACED WITHIN REACH, WILL CONTINUE TO MONITOR CLOSELY AND ANTICIPATE NEEDS
[2019-03-28 08:00] VITALS: BP 117/74
[2019-03-28] MEDS: ALBUTEROL FS 2.5 MG/3 ML VIAL.NEB NEB SCH ×2 (08:05→10:35)
[2019-03-28] MEDS: IPRATROPIUM NEB FS 0.5 MG/2.5 ML AMPUL.NEB NEB SCH ×2 (08:05→10:35)
[2019-03-28] MEDS: PANTOPRAZOLE 40 MG TABLET.DR PO SCH (08:15)
[2019-03-28] MEDS: HYDROCORTISONE SOD SUCCINATE 100 MG/2 ML VIAL IV SCH (08:15)
[2019-03-28] MEDS: LORATADINE 10 MG TABLET PO SCH (08:15)
[2019-03-28] MEDS: DOCUSATE SODIUM LIQ 100 MG/10 ML UDC NG SCH (08:15)
[2019-03-28] MEDS: MAG HYDROX/AL HYDROX/SIMETH 30 ML UDC PO PRN (08:15)
[2019-03-28] MEDS: MEGESTROL ACETATE SUSP 400 MG/10 ML UDC PO SCH (08:15)
[2019-03-28] MEDS: ALLOPURINOL 100 MG TABLET PO SCH (08:15)
[2019-03-28] MEDS: ENSURE ENLIVE CHOC 237 ML CAN PO SCH (08:16)
[2019-03-28] MEDS ORDERED: Magnesium 1GM/D5W 100ML PREMIX 100 ML IV ONE (08:30)
[2019-03-28] MEDS ORDERED: NEUTRA PHOS 1 POWD.PACKET PO SCH (10:00)
[2019-03-28 12:00] VITALS: BP 117/74
[2019-03-28] MEDS: VANCOMYCIN 0.75 GM in IV D5W 250 ML IV SCH (12:15)
--- NOTE | 2019-03-28 13:00 | NUR ---
RN NOTES CALLED Amy LYNNE NP IN ATTEMPT TO OBTAIN ORDER FOR SUPPOSITORY AND TO INFORMED ABOUT PATIENT KEEP ON COMPLAINING ABDOMINAL PAIN DESPITE BEING ABLE TO DEFECATE AND ADMINISTRATION OF MAALOX PRN. PER THE LATER, HE WILL CHECK ON THE PATIENT FIRST
--- NOTE | 2019-03-28 14:00 | NUR ---
RN NOTES CALLED MIGDALIA HARRIS. GAVE REPORT TO KALEY CHACKO FOR CONTINUITY OF CARE THEN CALLED TABBY (SON) TO INFORM HIM ABOUT THE MOM'S DISCHARGE
[2019-03-28] MEDS ORDERED: RXVAN XX (14:06)
[2019-03-28] MEDS ORDERED: ALBUT2 NEB (14:06)
[2019-03-28] MEDS ORDERED: DOCU50LI NG (14:06)
[2019-03-28] MEDS ORDERED: AZTR1VIA2 IV (14:06)
[2019-03-28] MEDS ORDERED: MEGE400O4 PO (14:06)
[2019-03-28] MEDS ORDERED: VANC750F IV (14:06)
[2019-03-28] MEDS ORDERED: PANT40TA2 PO (14:06)
--- NOTE | 2019-03-28 15:20 | NUR ---
RN NOTES PATIENT DISCHARGE. ALL DISCHARGE AND MEDICATION INSTRUCTION GIVEN TO KALEY CHACKO. SKIN INTACT ON ASSESSMENT. ALL BELONGING ACCOUNTED, IT WAS JUST DENTURES THAT WAS FOUND ON BEDSIDE, SPECIALLY HANDED TO EMT ON TRANSPORT. ID BANDS REMOVED. IV LINE LEFT IN PLACE DUE TO PATIENT CONTINUING IV MEDICATION FOR 5 MORE DAYS. PATIENT WHEELED OUT OF THE UNIT VIA [facility]
== END 2019-03-28 15:20 | DRG 840 ==
LOC: ER 21:41 → ICU 23:44 → TELE1 03-15 09:57 → TELE-TD 03-15 18:52 → MEDSG1 03-16 08:40 → TELE-TD 03-16 14:50 → TELE1 03-18 00:26 → MEDSG1 03-28 11:16
PROVIDERS: ADMIT Hospitalist; ATTEND Nurse Practitioner Acute Care
PROC: 30233N1 Transfusion of Nonautologous Red Blood Cells into Peripheral Vein, Percutaneous Approach (ICD-10-PCS; 2019-03-14)
PROC: 07DR3ZX Extraction of Iliac Bone Marrow, Percutaneous Approach, Diagnostic (ICD-10-PCS; principal; 2019-03-17)
DX: C90.00 Multiple myeloma not having achieved remission (principal); N17.0 Acute kidney failure with tubular necrosis; E43 Unspecified severe protein-calorie malnutrition; J18.9 Pneumonia, unspecified organism; I50.31 Acute diastolic (congestive) heart failure; E87.1 Hypo-osmolality and hyponatremia; I13.0 Hypertensive heart and chronic kidney disease with heart failure and stage 1 through stage 4 chronic kidney disease, or unspecified chronic kidney disease; Z68.1 Body mass index [BMI] 19.9 or less, adult; N39.0 Urinary tract infection, site not specified; E27.40 Unspecified adrenocortical insufficiency; R64 Cachexia; I11.0 Hypertensive heart disease with heart failure; I44.1 Atrioventricular block, second degree; E87.5 Hyperkalemia; N18.9 Chronic kidney disease, unspecified; B96.20 Unspecified Escherichia coli [E. coli] as the cause of diseases classified elsewhere; E86.0 Dehydration; E83.42 Hypomagnesemia; F41.9 Anxiety disorder, unspecified; E87.6 Hypokalemia; I25.10 Atherosclerotic heart disease of native coronary artery without angina pectoris; Z87.440 Personal history of urinary (tract) infections; M06.9 Rheumatoid arthritis, unspecified; M85.80 Other specified disorders of bone density and structure, unspecified site; E88.09 Other disorders of plasma-protein metabolism, not elsewhere classified; M62.50 Muscle wasting and atrophy, not elsewhere classified, unspecified site; G89.29 Other chronic pain; I27.20 Pulmonary hypertension, unspecified; I77.810 Thoracic aortic ectasia; M48.54XS Collapsed vertebra, not elsewhere classified, thoracic region, sequela of fracture; L27.0 Generalized skin eruption due to drugs and medicaments taken internally; T50.905A Adverse effect of unspecified drugs, medicaments and biological substances, initial encounter; Y92.89 Other specified places as the place of occurrence of the external cause; M48.56XS Collapsed vertebra, not elsewhere classified, lumbar region, sequela of fracture; Z87.11 Personal history of peptic ulcer disease
CPT/HCPCS: 36415; 36600; 71045-TC; 71250-TC; 74018; 76770-TC; 77075-TC; 80048-TC; 80053-TC; 80061-TC; 80076-TC; 81000-TC; 82232; 82272-TC; 82533; 82550-TC; 82728-TC; 82784; 82803-TC; 83540-TC; 83605-TC; 83735-TC; 83880; 83970; 84100-TC; 84155; 84165; 84443-TC; 84484-TC; 84550-TC; 85025-TC; 85378-TC; 85610-TC; 85730-TC; 86334; 86850-TC; 86921-TC; 87040-TC; 87081-TC; 87086-TC; 87186-TC; 93307-TC; 94760-TC; 94799-TC; 97110-TC; 97116-TC; 97530-TC; C9113; G0378; J1200; J1650; J1720; J1815; J1940; J1956; J3370; J3475; J3480; J3490; J7030; J7050; J7060; P9016-BL

== ENCOUNTER 2019-03-31 03:05 | Inpatient (IN) | payer MEDICARE, OTHER ==
[~2019-03-31] VITALS: Ht 154.9 cm; Wt 39.2 kg
[~2019-03-31 03:05] MED LIST: ALBUT2 NEB; AMLO5TAB9 PO; ASCO500T9 PO; AZTR1VIA2 IV; DOCU50LI NG; FERR325T23 PO; FOLI1TAB16 PO; FURO20TA4 PO; HYDR200T4 PO; LUBI24CA5 PO; MAGN400T6 PO; MEGE400O4 PO; MEGE400O5 PO; METH25VI11 IJ; PANT40TA2 PO; PANT40TA4 PO; RXVAN XX; SERT25TA5 PO; VANC750F IV
--- NOTE | 2019-03-31 03:17 | NUR ---
TECH AT BEDSIDE FOR EKG
--- NOTE | 2019-03-31 03:20 | NUR ---
PT BIBRA. C/O "PER FACILITY: PATIENT POINTING AT CHEST AND VERBALIZING "HURTS". -SOB NOTED. PT DEMENTED AT BASELINE. PT ON MONITOR IN BED 6. WILL CONTINUE TO MONITOR.
--- NOTE | 2019-03-31 03:45 | NUR ---
BLOOD DRAWN AND GIVEN TO LAB
[2019-03-31 03:46] LABS: BASOPHILS # (AUTO) 0.1 /CMM (0.0-0.2); BASOPHILS % (AUTO) 0.9 % (0.0-2.0); EOSINOPHILS % (AUTO) 2.4 % (0.0-6.0); HEMATOCRIT 31 % (33-45); HEMOGLOBIN 10.3 g/dL (11.5-14.8); LYMPHOCYTES # (AUTO) 2.2 /CMM (0.8-4.8); LYMPHOCYTES % (AUTO) 28.6 % (20.0-44.0); MEAN CORPUSCULAR HGB CONC 34 g/dl (31.0-36.0); MEAN CORPUSCULAR VOLUME 93 fL (82-100); MONOCYTES # (AUTO) 0.6 /CMM (0.1-1.30); MONOCYTES % (AUTO) 7.7 % (2.0-12.0); NEUTROPHILS # (AUTO) 4.7 /CMM (1.8-8.9); NEUTROPHILS % (AUTO) 60.4 % (43.0-81.0); PLATELET COUNT (AUTO) 265 /CMM (150-450); RED BLOOD CELL COUNT(AUTO) 3.29 MIL/uL (4.0-5.2); WHITE BLOOD COUNT (AUTO) 7.8 K/uL (4.3-11.0)
[2019-03-31] MEDS ORDERED: ASPIRIN 325 MG TABLET ONE (03:48)
[2019-03-31 03:51] LABS: CALCIUM, SERUM 7.4 mg/dL (8.5-10.1); CARBON DIOXIDE 25 mmol/L (21-32); CHLORIDE 103 mmol/L (98-107); GLUCOSE 83 mg/dL (74-106); POTASSIUM 5.1 mmol/L (3.5-5.1); SODIUM SERUM 133 mmol/L (136-145); UREA NITROGEN, BLOOD 35 mg/dL (7-18)
[2019-03-31] MEDS ORDERED: ASPIRIN 325 MG TABLET PO ONE (04:00)
--- NOTE | 2019-03-31 04:15 | NUR ---
BED ASSIGNMENT 324-1
--- NOTE | 2019-03-31 04:24 | NUR ---
REPORT GIVEN TO KALEY ALONZO FOR VASU
[2019-03-31 04:45] VITALS: BP 114/63
[2019-03-31 04:50] VITALS: BP 114/63
--- NOTE | 2019-03-31 04:50 | NUR ---
SADDLE AND SIDE WIRE STITCHERMANAGER MANUFACTURING NOTE RECEIVED PATIENT IN A GURNEY. UNABLE TO ASSESS IF PATIENT IS A/O. PATIENT SPEAKS FAROESE. TOLERATING ROOM AIR. RESPIRATIONS ARE EVEN AND UNLABORED. NO SIGNS OF SOB. NO MANIFESTATIONS OF PAIN AT THIS TIME. EXTERNAL TELE MONITOR READS SR 78. NO APPARENT DISTRESS AT THIS TIME. IV ACCESS IN BOTH LEFT AND RIGHT WRIST/FOREARM PATENT AND SALINE LOCKED. HARRISON CATHETER IS PRESENT, DRAINING TO GRAVITY, URINE IS YELLOW AND CLEAR. INITIAL PHYSICAL ASSESSMENT COMPLETED. SKIN ASSESSMENT COMPLETED AND PICTURES PLACED IN CHART. BELONGING LIST COMPLETED BY BUTTER PRINTER. BED IS LOW AND LOCKED. SIDE RAILS UP X2, HOB ELEVATED 30 DEGREES. CALL LIGHT WITHIN REACH. WILL CONTINUE TO MONITOR.
[2019-03-31] MEDS ORDERED: Z GUARD REMEDY 2 OZ OINT TP PRN (05:30)
[2019-03-31] MEDS ORDERED: MAGNESIUM HYDROXIDE 30 ML UDC PO PRN (05:30)
[2019-03-31] MEDS ORDERED: ONDANSETRON HCL/PF 4 MG/2 ML VIAL IVP PRN (05:30)
[2019-03-31] MEDS ORDERED: MAG HYDROX/AL HYDROX/SIMETH 30 ML UDC PO PRN (05:30)
[2019-03-31] MEDS ORDERED: ACETAMINOPHEN 325 MG TABLET PO PRN (05:30)
[2019-03-31] MEDS ORDERED: HYDROCODONE/APAP 5/325MG 1 EACH TABLET PO PRN (05:30)
[2019-03-31] MEDS ORDERED: VANCOMYCIN HCL 0.75 GM in IV D5W 250 ML IV ONE (06:00)
--- NOTE | 2019-03-31 06:00 | NUR ---
BEND SORTER NOTE 0600 VANCO NOT GIVEN D/T VANCO GIVEN PRESCRIPTION BEFORE ADMISSION. PHARMACY WANTS TO COLLECT VANCO TROUGH BEFORE ADMINISTERING VANCO. WILL ENDORSE TO NEXT SHIFT.
--- NOTE | 2019-03-31 07:00 | NUR ---
VERSE WRITER CLOSING NOTE PATIENT IS RESTING IN BED.EASILY TO AROUSE, ERITREAN SPEAKING. PATINT STILL TOLERATING ROOM AIR. RESPIRATIONS ARE EVEN AND UNLABORED. NO SIGNS OF SOB THROUGHOUT SHIFT. NO MANIFESTATIONS OF PAIN THROUGHOUT SHIFT. EXTERNAL TELE MONITOR READS SR 78. NO DISTRESS NOTED THROUGHOUT SHIFT. IV ACCESS MINTAINED IN BOTH LEFT AND RIGHT FOREARM PATENT AND SALINE LOCKED. HARRISON CATHETER IS MAINTAINED, DRAINING TO GRAVITY, URINE IS YELLOW AND CLEAR OUTPUT 500. BED IS LOW AND LOCKED. SIDE RAILS UP X2, HOB ELEVATED 30 DEGREES. CALL LIGHT WITHIN REACH. WILL ENDORSE TO NEXT SHIFT FOR VASU.
--- NOTE | 2019-03-31 07:25 | NUR ---
WATER RESOURCES PROJECT MANAGER OPENING NOTES RECEIVED PT IN BED,ASLEEP, EASILY AROUSED. BELIZEAN SPEAKING. TOLERATING RA, WITH NO ACUTE RESPIRATORY DISTRESS. PT EXHIBITS NO PAIN OR DISCOMFORT AT THIS TIME. ON TELEMONITORING SR 83 WITH OCCASIONAL PACS. PIVS TO RIGH WRIST SL G18 AND LEFT WRIST G24, BOTH FLUSHED WITH NS, INTACT AND OPERATIONAL. PT HAS FC WITH YELLOWISH URIN PRESENT IN THE BAG. PT KEPT COMFORTABLE, CLEAN AND DRY. CALL LIGHT KEPT WITHIN REACH. HOB ELEVATED. PT'S BED IN LOWEST, LOCKED POSITION WITH SR X3. WILL CONTINUE PLAN OF CARE.
[2019-03-31 07:30] VITALS: BP 149/72
[2019-03-31] MEDS ORDERED: PANTOPRAZOLE 40 MG TABLET.DR PO SCH ×2 (07:30→09:00)
[2019-03-31] MEDS ORDERED: DEXTROSE ISO OSM IV SCH (09:00)
[2019-03-31] MEDS ORDERED: [UNRECOGNIZED DRUG - OTHER] IV SCH (09:00)
[2019-03-31] MEDS ORDERED: AZTREONAM 1 G VIAL IV SCH (09:00)
[2019-03-31] MEDS ORDERED: FUROSEMIDE 20 MG TABLET PO SCH (09:00)
[2019-03-31] MEDS ORDERED: SERTRALINE HCL 25 MG TABLET PO SCH (09:00)
[2019-03-31] MEDS ORDERED: FOLIC ACID 1 MG TABLET PO SCH (09:00)
[2019-03-31] MEDS ORDERED: AZTREONAM 1 G in IV NS 0.9% 100 ML IV SCH (09:00)
[2019-03-31] MEDS ORDERED: VANCOMYCIN IV SCH (09:00)
[2019-03-31] MEDS ORDERED: Medication Not On Formulary EA (Lubiprostone (Amitiza) 24 MCG) PO SCH (09:00)
[2019-03-31] MEDS ORDERED: HYDROXYCHLOROQUINE 200 MG TABLET PO SCH (09:00)
[2019-03-31] MEDS: ALBUTEROL FS 2.5 MG/3 ML VIAL.NEB NEB SCH ×4 (09:24→19:44)
[2019-03-31] MEDS: DOCUSATE SODIUM LIQ 100 MG/10 ML UDC PO SCH ×2 (09:35→17:03)
[2019-03-31] MEDS: FERROUS SULFATE (325 MG) 325 MG/TAB TABLET PO SCH ×2 (09:36→17:03)
[2019-03-31] MEDS: MEGESTROL ACETATE SUSP 400 MG/10 ML UDC PO SCH ×2 (09:36→17:03)
[2019-03-31] MEDS: ASCORBIC ACID 500 MG TABLET PO SCH ×2 (09:36→17:03)
[2019-03-31] MEDS ORDERED: VANCOMYCIN 1 GM in IV D5W 250 ML IV SCH (10:00)
[2019-03-31] MEDS ORDERED: FEE PK DOSING 1 MIN EA MC ONE (11:52)
[2019-03-31 16:00] VITALS: BP 122/68
--- NOTE | 2019-03-31 18:29 | NUR ---
MS RN CLOSING NOTES PT IN BED, AWAKE, A/O X2-3. MALDIVIAN SPEAKING. AMBULATORY WITH ASSIST. TOLERATING RA, WITH NO ACUTE RESPIRATORY DISTRESS. PT EXHIBITS NO PAIN OR DISCOMFORT AT THIS TIME. PIVS TO RIGHT WRIST SL G18 AND LEFT WRIST G24, BOTH FLUSHED WITH NS, INTACT AND OPERATIONAL. PT HAS FC WITH YELLOWISH URINE PRESENT IN THE BAG. ALL NEEDS AND CARE ATTENDED AND PROVIDED. PT KEPT COMFORTABLE, CLEAN AND DRY. CALL LIGHT KEPT WITHIN REACH. HOB ELEVATED. PT'S BED IN LOWEST, LOCKED POSITION WITH SR X3. WILL ENDORSE TO INCOMING NIGHT NURSE FOR DISCHARGE. ALL DISCHARGE PAPERS SIGNED BY RP/SON; AWAITING FOR CITY TREASURER.
--- NOTE | 2019-03-31 19:30 | NUR ---
MS RN OPENING NOTE RECEIVED PATIENT IN BED. EASILY TO AROUSE, SLOVAK SPEAKING. PATENT TOLERATING ROOM AIR. RESPIRATIONS ARE EVEN AND UNLABORED. NO SIGNS OF SOB. NO SIGNS OF PAIN AT THIS TIME.. NO DISTRESS NOTED. IV ACCESS IN LEFT AND RIGHT FOREARM PATENT AND SALINE LOCKED. HARRISON CATHETER IS PRESENT, DRAINING TO GRAVITY, URINE IS YELLOW AND CLEAR. BED IS LOW AND LOCKED. SIDE RAILS UP X3, HOB ELEVATED 30 DEGREES. CALL LIGHT WITHIN REACH. WILL CONTINUE TO MONITOR
[2019-03-31 20:00] VITALS: BP 100/53
--- NOTE | 2019-03-31 20:00 | NUR ---
MS RN NOTE ADMINISTERED PRN MILK OF MAGNESIA 1 UNIT CUP DOSE (30 ML) D/T PATIENT GRASPING ABDOMINAL AREA AND SITTING ON THE TOILET FOR A FEW MINUTES WITH NO BOWEL MOVEMENT. WILL CONTINUE TO MONITOR.
--- NOTE | 2019-03-31 20:42 | NUR ---
MS RN - DISCHARGE NOTE PATIENT IS BEING DISCHARGED TO [facility] WITH EMT. PATIENT IS EASILY ABUSABLE, A/O X2. PATIENT IS STABLE. TOLERATING ROOM AIR, NO SIGNS OF SOB NOTED. RESPIRATIONS ARE EVEN AND UNLABORED. PATIENT IS BEING DISCHARGED WITH IV SITES OF THE LEFT WRIST/FOREARM #24 AND RIGHT WRIST/FOREARM #18 BECAUSE HEY WILL BE RECEIVING IV ANTIBIOTICS AT THE FACILITY. HARRISON CATHETER REMAINS SECURE IN PLACE, DRAINING TO GRAVITY, URINE IS YELLOW AND CLEAR. PATIENT DISCHARGED WITH ALL BELONGINGS, EDUCATIONAL INFORMATION, TEST AND PROCEDURES PERFORMED.
[2019-03-31] MEDS ORDERED: AMLODIPINE BESYLATE 5 MG TABLET PO SCH (22:00)
[2019-04-01] MEDS ORDERED: ASPIRIN 325 MG TABLET PO SCH (09:00)
== END 2019-03-31 20:40 | DRG 880 ==
LOC: ER 03:08 → TELE 04:25 → MED 08:07
PROVIDERS: ADMIT Nurse Practitioner Acute Care; ATTEND Nurse Practitioner Acute Care
DX: F41.9 Anxiety disorder, unspecified (principal); E43 Unspecified severe protein-calorie malnutrition; C90.00 Multiple myeloma not having achieved remission; E87.1 Hypo-osmolality and hyponatremia; R64 Cachexia; Z68.1 Body mass index [BMI] 19.9 or less, adult; F03.90 Unspecified dementia, unspecified severity, without behavioral disturbance, psychotic disturbance, mood disturbance, and anxiety; I10 Essential (primary) hypertension; G89.29 Other chronic pain; I27.20 Pulmonary hypertension, unspecified; M06.9 Rheumatoid arthritis, unspecified; M85.80 Other specified disorders of bone density and structure, unspecified site; D64.9 Anemia, unspecified; Z87.11 Personal history of peptic ulcer disease; Z87.01 Personal history of pneumonia (recurrent); M48.55XS Collapsed vertebra, not elsewhere classified, thoracolumbar region, sequela of fracture; E88.09 Other disorders of plasma-protein metabolism, not elsewhere classified
CPT/HCPCS: 36415; 71045-TC; 80048-TC; 80202-TC; 84484-TC; 85025-TC; 87081-TC; 94799-TC; G0378; J3370; J3490; J7030; J7050; J7060

== ENCOUNTER 2019-04-10 17:47 | Inpatient (IN) | payer MEDICARE, OTHER ==
[~2019-04-10] VITALS: Ht 157.5 cm; Wt 41.7 kg
[~2019-04-10 17:47] MED LIST changes: -MAGN400T6 PO; +MAGN400T8 PO
[2019-04-10 18:20] LABS: BASOPHILS % (AUTO) 0.7 % (0.0-2.0); EOSINOPHILS % (AUTO) 0.9 % (0.0-6.0); HEMATOCRIT 27 % (33-45); HEMOGLOBIN 9.2 g/dL (11.5-14.8); LYMPHOCYTES # (AUTO) 1.8 /CMM (0.8-4.8); LYMPHOCYTES % (AUTO) 25.2 % (20.0-44.0); MEAN CORPUSCULAR HGB CONC 34 g/dl (31.0-36.0); MEAN CORPUSCULAR VOLUME 94 fL (82-100); MONOCYTES # (AUTO) 0.7 /CMM (0.1-1.30); MONOCYTES % (AUTO) 10.2 % (2.0-12.0); NEUTROPHILS # (AUTO) 4.6 /CMM (1.8-8.9); PLATELET COUNT (AUTO) 378 /CMM (150-450); RED BLOOD CELL COUNT(AUTO) 2.88 MIL/uL (4.0-5.2); WHITE BLOOD COUNT (AUTO) 7.3 K/uL (4.3-11.0)
[2019-04-10 18:41] LABS: CALCIUM, SERUM 8.9 mg/dL (8.5-10.1); CARBON DIOXIDE 16 mmol/L (21-32); CHLORIDE 100 mmol/L (98-107); CREATININE 1.5 mg/dL (0.6-1.3); GLUCOSE 89 mg/dL (74-106); POTASSIUM 5.4 mmol/L (3.5-5.1); SODIUM SERUM 125 mmol/L (136-145); UREA NITROGEN, BLOOD 49 mg/dL (7-18)
[2019-04-10] MEDS ORDERED: IV NS 0.9% 1,000 ML BAG IV ONE (19:00)
[2019-04-10 19:03] LABS: ALANINE AMINOTRANSFERASE 13 U/L (12-78); ALBUMIN 1.8 g/dL (3.4-5.0); ALKALINE PHOSPHATASE 67 U/L (46-116); ASPARTATE AMINOTRANSFERASE 17 U/L (15-37); BILIRUBIN,DIRECT 0.1 mg/dL (0.0-0.2); BILIRUBIN,TOTAL 0.2 mg/dL (0.2-1.0); TOTAL PROTEIN, SERUM 12.5 g/dL (6.4-8.2)
--- NOTE | 2019-04-10 19:13 | NUR ---
TRANSFER OF CARE. REPORT GIVEN TO KALEY KUMAR.
--- NOTE | 2019-04-10 19:13 | NUR ---
PRESENTED TO THE ER FOR EVALUATION OF AMS FROM SNF.
--- NOTE | 2019-04-10 19:23 | NUR ---
PT WAS ASSISTED W/ BED KIM. URINE COLLECTED AND SENT TOT HE LAB
[2019-04-10 19:41] LABS: APPEARANCE,URINE Slightly Cloudy (CLEAR); BILIRUBIN,URINE Negative (NEGATIVE); BLOOD, URINE Trace-intact Ery/uL (NEGATIVE); COLOR,URINE Yellow (YELLOW); KETONES,URINE Negative (NEGATIVE); LEUKOCYTE ESTERASE ,URINE Small (NEGATIVE); NITRITE, URINE Negative (NEGATIVE); PH,URINE 5.5 (5.0-8.0); PROTEIN,URINE Negative (NEGATIVE); UGLUCOSE Negative (NEGATIVE); UROBILINOGEN,URINE 0.2 EU/dL (0.2)
[2019-04-10] MEDS ORDERED: ONDANSETRON HCL/PF 4 MG/2 ML VIAL IVP PRN (20:00)
[2019-04-10] MEDS ORDERED: MAGNESIUM HYDROXIDE 30 ML UDC PO PRN (20:00)
[2019-04-10] MEDS ORDERED: Z GUARD REMEDY 2 OZ OINT TP PRN (20:00)
[2019-04-10] MEDS ORDERED: ZOLPIDEM TARTRATE 5 MG TABLET PO PRN (20:00)
[2019-04-10] MEDS ORDERED: MAG HYDROX/AL HYDROX/SIMETH 30 ML UDC PO PRN (20:00)
[2019-04-10 20:03] LABS: BACTERIA,URINE Few /HPF (None Seen); MUCUS,URINE Few /LPF (None Seen); SQUAMOUS EPITHELIAL CELL,UR Many /HPF (None Seen)
--- NOTE | 2019-04-10 20:37 | NUR ---
BED ASSIGNMENT 325-1
--- NOTE | 2019-04-10 20:56 | NUR ---
report given to [facility] for [facility]
[2019-04-10 21:15] VITALS: BP 123/59
--- NOTE | 2019-04-10 21:20 | NUR ---
pt was trasferred to rm 325 under acls
--- NOTE | 2019-04-10 21:40 | NUR ---
RN NOTES ADMITTED PATIENT. TRANSPORTED FROM ER VIA GURNEY. PATIENT IS CHINESE SPEAKING, ABLE TO OBTAIN DATA FOR ADMISSION FROM PATIENTS' SON TABBY AND DAUGHTER. ORIENTED PATIENT TO UNIT AND THE USE OF CALL LIGHT, INITIAL PHYSICAL ASSESSMENT DONE, REPOSITION FOR COMFORT, PATIENT WANTS TO USE BED SIDE COMMODE TO URINATE, MILD WEAKNESS NOTED, ABLE TO STAND WITH ASSISTANCE. ALL NEEDS ANTICIPATED, SAFETY MEASURES IN PLACE, BED IN LOW LOCKED POSITION, CALL LIGHT WITHIN EASY REACH, ASPIRATION PRECAUTION EMPHASIZE, WILL CONTINUE TO MONITOR ACCORDINGLY.
[2019-04-10] MEDS: IV NS 0.9% 1,000 ML IV PRN (21:58)
[2019-04-10] MEDS ORDERED: LEVOFLOXACIN 500 MG /D5W 100ML 500 MG in PREMIX 1 EA IV SCH (23:30)
[2019-04-10] MEDS: ENOXAPARIN SODIUM 30 MG/0.3 ML DISP.SYRIN SQ SCH (23:32)
[2019-04-11] MEDS ORDERED: LEVOFLOXACIN 500 MG /D5W 100ML 100 ML IV ONE (00:29)
[2019-04-11 06:47] LABS: BASOPHILS % (AUTO) 0.8 % (0.0-2.0); EOSINOPHILS % (AUTO) 1.4 % (0.0-6.0); HEMATOCRIT 27 % (33-45); HEMOGLOBIN 8.8 g/dL (11.5-14.8); LYMPHOCYTES # (AUTO) 1.4 /CMM (0.8-4.8); LYMPHOCYTES % (AUTO) 27.7 % (20.0-44.0); MEAN CORPUSCULAR HGB CONC 33 g/dl (31.0-36.0); MEAN CORPUSCULAR VOLUME 94 fL (82-100); MONOCYTES # (AUTO) 0.6 /CMM (0.1-1.30); MONOCYTES % (AUTO) 12.1 % (2.0-12.0); NEUTROPHILS # (AUTO) 2.9 /CMM (1.8-8.9); PLATELET COUNT (AUTO) 316 /CMM (150-450); RED BLOOD CELL COUNT(AUTO) 2.84 MIL/uL (4.0-5.2)
[2019-04-11 06:52] LABS: CALCIUM, SERUM 8.1 mg/dL (8.5-10.1); CARBON DIOXIDE 15 mmol/L (21-32); CHLORIDE 104 mmol/L (98-107); CREATININE 1.4 mg/dL (0.6-1.3); GLUCOSE 69 mg/dL (74-106); MAGNESIUM 1.9 mg/dL (1.8-2.4); PHOSPHORUS 4.8 mg/dL (2.5-4.9); SODIUM SERUM 129 mmol/L (136-145); UREA NITROGEN, BLOOD 44 mg/dL (7-18)
--- NOTE | 2019-04-11 07:24 | NUR ---
RN NOTES ABLE TO REST AND SLEPT AT INTERVALS, NO APPARENT SIGNS OF ACUTE DISTRESS NOTED, SAFETY MEASURES IN PLACE, ASPIRATION PRECAUTION EMPHASIZE. ENDORSED TO AM NURSE FOR CONTINUITY OF CARE.
--- NOTE | 2019-04-11 07:30 | NUR ---
MS/RN Patient received Patient received from warehouse shift supervisor. A/O X4, Hong Konger speaking only. Denies any pain or discomfort at this time, able to ambulate to bathroom with standby assist only. Safety measures in place, call light within reach, will continue to monitor and ensure safety. Keyanna (KALEY)as plant operations vice president.
[2019-04-11 08:17] LABS: CHOLESTEROL 113 mg/dL (<200); HDL CHOLESTEROL 19 mg/dL (40-60); LDL 95 mg/dL (0-99); THYROID STIMULATING HORMONE 0.776 uIU/mL (0.358-3.74); TRIGLYCERIDES 55 mg/dL (30-150)
[2019-04-11] MEDS: SERTRALINE HCL 25 MG TABLET PO SCH (08:35)
[2019-04-11] MEDS: ASCORBIC ACID 500 MG TABLET PO SCH ×2 (08:35→17:12)
[2019-04-11] MEDS: DOCUSATE SODIUM LIQ 100 MG/10 ML UDC NG SCH ×2 (08:35→17:12)
[2019-04-11] MEDS: FERROUS SULFATE (325 MG) 325 MG/TAB TABLET PO SCH ×2 (08:35→17:12)
[2019-04-11] MEDS: FOLIC ACID 1 MG TABLET PO SCH (08:35)
[2019-04-11] MEDS: MEGESTROL ACETATE SUSP 400 MG/10 ML UDC PO SCH ×2 (08:35→17:12)
[2019-04-11] MEDS: PANTOPRAZOLE 40 MG TABLET.DR PO SCH (08:35)
--- NOTE | 2019-04-11 09:00 | NUR ---
MS/rn dialysis update Family updated as to plan of care.
--- NOTE | 2019-04-11 10:00 | NUR ---
MS/RN Labs Morning labs reviewed: -K+ 5.0 -Na 129 -H&H 8.8
--- NOTE | 2019-04-11 10:55 | NUR ---
WOUND CARE CONSULT: PT PRESENTS WITH SACRAL WOUND PRESENT ON ADMISSION. DEFER TO SURGICAL TEAM FOR WOUND TREATMENT PLAN. WILL SEE PRN. SKIN PROTECTION RECOMMENDATIONS DISCUSSED WITH NURSING STAFF. KAYODE ISOFLEX LOW AIRLOSS BED TO BE PLACED WHEN AVAILABLE.
[2019-04-11 11:00] VITALS: BP 115/61
[2019-04-11] MEDS: IV NS 0.9% 1,000 ML IV PRN (12:56)
--- NOTE | 2019-04-11 14:00 | NUR ---
MS/RN S/B PT Seen by PT - cleared to ambulate with nursing staff using walker and standby assist.
[2019-04-11 16:00] VITALS: BP 102/60
--- NOTE | 2019-04-11 17:55 | NUR ---
MS/RN Medications Evening medications administered.
--- NOTE | 2019-04-11 18:50 | NUR ---
MS/RN End note Herminio (son) at bedside and updated as to plan of care. Family requesting if MD assigned to patient can be Faroese speaking. Dr Foss on floor and informed. Will endorse to night auditor.
--- NOTE | 2019-04-11 19:20 | NUR ---
RN OPEN NOTES RECEIVED PATIENT AWAKE LYING IN BED. A/OX3. FRENCH SPEAKING. NO SIGNS OF DISTRESS OR DISCOMFORT. BREATHING EVEN AND UNLABORED. IV ACCESS IN LFA, PATENT AND INTACT. NO SIGNS OF INFILTRATION OR REDNESS. BED IN LOW LOCKED POSITION WITH SIDE RAILS X3. BED ALARM ON. CALL LIGHT WITHIN REACH. WILL CONTINUE TO MONITOR.
[2019-04-11] MEDS: ACETAMINOPHEN 325 MG TABLET PO PRN (21:04)
[2019-04-11] MEDS: ENOXAPARIN SODIUM 30 MG/0.3 ML DISP.SYRIN SQ SCH (21:05)
[2019-04-11] MEDS: HYDROGEL DRESSING 90 GM TUBE TP SCH (21:16)
[2019-04-11 21:32] VITALS: BP 116/62
[2019-04-12 06:25] LABS: BASOPHILS % (AUTO) 0.6 % (0.0-2.0); HEMATOCRIT 25 % (33-45); HEMOGLOBIN 8.3 g/dL (11.5-14.8); LYMPHOCYTES # (AUTO) 1.5 /CMM (0.8-4.8); LYMPHOCYTES % (AUTO) 29.2 % (20.0-44.0); MEAN CORPUSCULAR HGB CONC 34 g/dl (31.0-36.0); MEAN CORPUSCULAR VOLUME 96 fL (82-100); MONOCYTES # (AUTO) 0.6 /CMM (0.1-1.30); MONOCYTES % (AUTO) 12.6 % (2.0-12.0); NEUTROPHILS # (AUTO) 2.8 /CMM (1.8-8.9); NEUTROPHILS % (AUTO) 56.6 % (43.0-81.0); PLATELET COUNT (AUTO) 286 /CMM (150-450)
[2019-04-12 06:45] LABS: THYROID STIMULATING HORMONE 0.33 uIU/mL (0.358-3.74)
[2019-04-12 06:54] LABS: ALBUMIN 1.5 g/dL (3.4-5.0); BILIRUBIN,TOTAL 0.2 mg/dL (0.2-1.0); CALCIUM, SERUM 8.1 mg/dL (8.5-10.1); CREATININE 1.2 mg/dL (0.6-1.3); MAGNESIUM 1.7 mg/dL (1.8-2.4); PHOSPHORUS 3.6 mg/dL (2.5-4.9); POTASSIUM 4.5 mmol/L (3.5-5.1); TOTAL PROTEIN, SERUM 10.8 g/dL (6.4-8.2)
--- NOTE | 2019-04-12 07:02 | NUR ---
RN CLOSING NOTES PATIENT RESTING IN BED, EASILY AROUSABLE. A/OX3. EMIRATI SPEAKING. NO SIGNS OF DISTRESS OR DISCOMFORT. BREATHING EVEN AND UNLABORED. IV ACCESS IN LFA, PATENT AND INTACT. NO SIGNS OF INFILTRATION OR REDNESS. ALL NEEDS MET. NO SIGNIFICANT CHANGES THROUGH THE NIGHT. BED IN LOW LOCKED POSITION WITH SIDE RAILS X3. BED ALARM ON. CALL LIGHT WITHIN REACH. WILL ENDORSE TO AM SHIFT FOR VASU. .
[2019-04-12 07:30] VITALS: BP 155/89
--- NOTE | 2019-04-12 07:34 | NUR ---
RN MS OPENING NOTES Patient received on room air, no sob noted, a/o x3 at this time. RFA #24, NS @ 75mL per hour, pureed diet. RFA #24 NS@75mL per hour. Consent for debridement of sacrum signed by family member at this time. Bed at the lowest setting, call light within reach, side rails up x2.
[2019-04-12 08:40] LABS: URIC ACID 7.5 mg/dL (2.6-7.2)
[2019-04-12] MEDS: PANTOPRAZOLE 40 MG TABLET.DR PO SCH (08:43)
[2019-04-12] MEDS: SERTRALINE HCL 25 MG TABLET PO SCH (08:43)
[2019-04-12] MEDS: MEGESTROL ACETATE SUSP 400 MG/10 ML UDC PO SCH ×2 (08:43→17:15)
[2019-04-12] MEDS: DOCUSATE SODIUM LIQ 100 MG/10 ML UDC NG SCH ×2 (08:43→17:15)
[2019-04-12] MEDS: FOLIC ACID 1 MG TABLET PO SCH (08:43)
[2019-04-12] MEDS: ASCORBIC ACID 500 MG TABLET PO SCH ×2 (08:43→17:15)
[2019-04-12] MEDS: FERROUS SULFATE (325 MG) 325 MG/TAB TABLET PO SCH ×2 (08:43→17:15)
[2019-04-12] MEDS: HYDROGEL DRESSING 90 GM TUBE TP SCH (08:45)
[2019-04-12 11:06] LABS: *SPE A/G RATIO 0.4 (0.7-1.7); *SPE ALBUMIN 2.8 g/dL (2.9-4.4); *SPE ALPHA-1-GLOBULIN 0.2 g/dL (0.0-0.4); *SPE ALPHA-2-GLOBULIN 1.2 g/dL (0.4-1.0); *SPE GLOBULIN, TOTAL 7.4 g/dL (2.2-3.9); *SPE M-SPIKE 4.6 g/dL (Not Observed)
[2019-04-12] MEDS: Magnesium 1GM/D5W 100ML PREMIX 100 ML IV SCH ×2 (12:35→13:50)
[2019-04-12] MEDS: IV NS 0.9% 1,000 ML IV PRN (14:42)
[2019-04-12 15:57] VITALS: BP 128/64
[2019-04-12] MEDS: SULFAMETH/TRIMETH 800/160 MG 1 UDTAB TABLET PO SCH (18:35)
--- NOTE | 2019-04-12 18:56 | NUR ---
RN MS CLOSING NOTES Patient remains on room air, no sob noted, patient denies pain at this time. Patient remains a/o x3 and awake. RFA #24 NS 75 mL per hour remains patent at this time. Debridement with linda today and patient is comfortable, and has no pain. Patient able to tolerate feeding and is able to eat. All medications given, and all needs met. Will give report to NOC RN for VASU bedside.
--- NOTE | 2019-04-12 19:10 | NUR ---
RN medsuraxel notes Received Pt from morning nurse. Pt is alert and oriented X3. Pt is resting in bed comfortably watching TV. Pt's daughter at the bed side. Respiration is normal. No SOB. No nausea or vomiting. No S/S of distress of noted. IV sites at RFA # 24 is clean, intact, patent and infusing well NS 75 ml/hr. POC was discussed with Pt' daughter and Pt and Pt's daughter verbalize understanding. Safety precautions is maintained all the time. Bed at low position, brakes locked, side rails upX3 and call light is within reach. Will continue to monitor.
[2019-04-12] MEDS: ALBUTEROL FS 2.5 MG/3 ML VIAL.NEB NEB SCH (19:30)
[2019-04-12 20:00] VITALS: BP 113/55
[2019-04-12 20:32] VITALS: BP 113/55
[2019-04-12] MEDS: ENOXAPARIN SODIUM 30 MG/0.3 ML DISP.SYRIN SQ SCH (20:47)
--- NOTE | 2019-04-12 23:57 | NUR ---
RN medsurg notes Inserted new Peripheral IV sites at right AC #24. New IV sites is clean, intact, patent and flush without resistance. Pt Old IV sites at RFA# 24 is leaking. Pt tolerated activity well.
--- NOTE | 2019-04-13 01:00 | NUR ---
KALEY pacheco notes Pt refused to have IV fluid NS. Pt states "NO". Informed and educate Pt about the benefits. Pt keep refusing. Will continue to monitor.
[2019-04-13] MEDS: SULFAMETH/TRIMETH 800/160 MG 1 UDTAB TABLET PO SCH ×2 (05:35→17:25)
[2019-04-13 06:38] LABS: CREATININE 1.1 mg/dL (0.6-1.3); MAGNESIUM 2.1 mg/dL (1.8-2.4); POTASSIUM 4.9 mmol/L (3.5-5.1)
--- NOTE | 2019-04-13 06:54 | NUR ---
RN medsurg closing notes Pt is alert and orientedX3. Pt is resting in bed comfortably. Respiration is normal. No SOB. No S/S of distress noted. IV sites at RAC# 24 is clean, intact, patent. Routine meds were given as ordered. VS is stable. Kept Pt clean, dry and comfortable. All needs met and attended. Safety precautions is maintained. Bed at low position, brakes locked, side rails upX3 and call light is within reach. Will endorse to morning nurse for VASU.
[2019-04-13] MEDS: ALBUTEROL FS 2.5 MG/3 ML VIAL.NEB NEB SCH ×4 (07:35→19:54)
[2019-04-13 08:00] VITALS: BP 137/79
--- NOTE | 2019-04-13 08:00 | NUR ---
MS RN NOTES PATIENT IN BED RESTING NO SOB OR ACUTE DISTRESS NOTED. PATIENT ALERT, ORIENTED X2-3 DENIES ANY PAIN OR DISCOMFORT. PATIENT BURUNDIAN SPEAKING. PERIPHERAL IV INTACT PATENT. BED IN LOW LOCKED POSITION. CALL LIGHT WITHIN REACH. WILL CONTINUE TO MONITOR.
[2019-04-13 08:06] LABS: *SPE A/G RATIO 0.4 (0.7-1.7); *SPE ALBUMIN 2.7 g/dL (2.9-4.4); *SPE ALPHA-1-GLOBULIN 0.2 g/dL (0.0-0.4); *SPE ALPHA-2-GLOBULIN 1.2 g/dL (0.4-1.0); *SPE BETA GLOBULIN 0.9 g/dL (0.7-1.3); *SPE GLOBULIN, TOTAL 7.6 g/dL (2.2-3.9); *SPE M-SPIKE 4.9 g/dL (Not Observed); *SPEGAMMA GLOBULIN 5.2 g/dL (0.4-1.8)
[2019-04-13] MEDS: DOCUSATE SODIUM LIQ 100 MG/10 ML UDC NG SCH ×2 (08:43→17:25)
[2019-04-13] MEDS: MEGESTROL ACETATE SUSP 400 MG/10 ML UDC PO SCH ×2 (08:43→17:25)
[2019-04-13] MEDS: ASCORBIC ACID 500 MG TABLET PO SCH ×2 (08:43→17:25)
[2019-04-13] MEDS: SERTRALINE HCL 25 MG TABLET PO SCH (08:43)
[2019-04-13] MEDS: FERROUS SULFATE (325 MG) 325 MG/TAB TABLET PO SCH ×2 (08:43→17:25)
[2019-04-13] MEDS: FOLIC ACID 1 MG TABLET PO SCH (08:43)
[2019-04-13] MEDS: PANTOPRAZOLE 40 MG TABLET.DR PO SCH (08:43)
[2019-04-13] MEDS: HYDROGEL DRESSING 90 GM TUBE TP SCH (09:15)
[2019-04-13 16:00] VITALS: BP 106/52
--- NOTE | 2019-04-13 18:48 | NUR ---
MS RN NOTES PATIENT IN BED RESTING COMFORTABLE. PATIENT ALERT, ORIENTED X 2-3. ALL DUE MEDICATIONS ADMINISTERED. ALL NEEDS MET. NO ACUTE CHANGES NOTED DURING SHIFT. BED IN LOW LOCKED POSITION, CALL LIGHT WITHIN REACH. WILL ENDORSE VASU TO PM SHIFT.
--- NOTE | 2019-04-13 19:15 | NUR ---
RN medsurg notes Received Pt awake and in bed resting comfortably. Pt is alert and oriented X3. Pt speaks Turkish and able to make needs known. Respiration is normal. No SOB. No nausea or vomiting. No S/S of distress of noted. IV sites at RAC# 24 is clean, intact, patent and SL. Instructed to call. Safety precautions is maintained all the time. Bed at low position, brakes locked, side rails upX3 and call light is within reach. Will continue to monitor.
[2019-04-13 20:00] VITALS: BP 127/67
[2019-04-13] MEDS: ENOXAPARIN SODIUM 30 MG/0.3 ML DISP.SYRIN SQ SCH (21:15)
[2019-04-14] MEDS: SULFAMETH/TRIMETH 800/160 MG 1 UDTAB TABLET PO SCH ×2 (05:04→17:16)
[2019-04-14 06:19] LABS: BASOPHILS % (AUTO) 0.5 % (0.0-2.0); EOSINOPHILS % (AUTO) 0.5 % (0.0-6.0); HEMATOCRIT 27 % (33-45); HEMOGLOBIN 9.1 g/dL (11.5-14.8); LYMPHOCYTES # (AUTO) 1.8 /CMM (0.8-4.8); MEAN CORPUSCULAR HGB CONC 34 g/dl (31.0-36.0); MEAN CORPUSCULAR VOLUME 93 fL (82-100); MONOCYTES # (AUTO) 0.8 /CMM (0.1-1.30); MONOCYTES % (AUTO) 10.6 % (2.0-12.0); NEUTROPHILS # (AUTO) 4.9 /CMM (1.8-8.9); NEUTROPHILS % (AUTO) 64.4 % (43.0-81.0); PLATELET COUNT (AUTO) 317 /CMM (150-450); RED BLOOD CELL COUNT(AUTO) 2.92 MIL/uL (4.0-5.2); WHITE BLOOD COUNT (AUTO) 7.7 K/uL (4.3-11.0)
--- NOTE | 2019-04-14 06:35 | NUR ---
RN medsurg closing notes Pt is alert and orientedX3. Pt is resting in bed comfortably. Awaken easily. Respiration is normal. No SOB. No S/S of distress noted. IV sites at RAC# 24 is clean, intact, patent. Routine meds were given as ordered. VS is stable. Kept Pt clean, dry and comfortable. All needs met and attended. Safety precautions is maintained. Bed at low position, brakes locked, side rails upX3 and call light is within reach. Will endorse to morning nurse for VASU.
[2019-04-14 06:49] LABS: CALCIUM, SERUM 8.2 mg/dL (8.5-10.1); CARBON DIOXIDE 14 mmol/L (21-32); CHLORIDE 102 mmol/L (98-107); CREATININE 1.5 mg/dL (0.6-1.3); GLUCOSE 88 mg/dL (74-106); MAGNESIUM 1.8 mg/dL (1.8-2.4); PHOSPHORUS 3.4 mg/dL (2.5-4.9); POTASSIUM 5.8 mmol/L (3.5-5.1); SODIUM SERUM 126 mmol/L (136-145); UREA NITROGEN, BLOOD 29 mg/dL (7-18)
--- NOTE | 2019-04-14 07:45 | NUR ---
MS RN OPENING NOTES RECEIVED PT LAYING IN BED, AWAKE, ALERT AND RESPONSIVE. DTR IGO AT BEDSIDE. RESPIRATIONS ARE EVEN AND UNLABORED, NOT IN ANY ACUTE DISTRESS NOTED. DENIES ANY PAIN, SOB, N/V. IV SITE TO RAC INTACT, NO INFILTRATION NOTED. DRESSING KEPT CLEAN AND DRY. SAFETY MEASURES ARE IN PLACE. INSTRUCTED PT TO USE CALL LIGHT WHEN ASSISTANCE IS NEEDED, CALL LIGHT IS LEFT WITHIN REACH. WILL MONITOR THROUGHOUT SHIFT FOR CONTINUITY OF CARE.
[2019-04-14 08:00] VITALS: BP 134/72
[2019-04-14] MEDS: DOCUSATE SODIUM LIQ 100 MG/10 ML UDC NG SCH ×2 (08:16→17:15)
[2019-04-14] MEDS: PANTOPRAZOLE 40 MG TABLET.DR PO SCH (08:16)
[2019-04-14] MEDS: ASCORBIC ACID 500 MG TABLET PO SCH ×2 (08:16→17:15)
[2019-04-14] MEDS: SERTRALINE HCL 25 MG TABLET PO SCH (08:16)
[2019-04-14] MEDS: MEGESTROL ACETATE SUSP 400 MG/10 ML UDC PO SCH ×2 (08:16→17:15)
[2019-04-14] MEDS: FOLIC ACID 1 MG TABLET PO SCH (08:16)
[2019-04-14] MEDS: FERROUS SULFATE (325 MG) 325 MG/TAB TABLET PO SCH ×2 (08:16→17:15)
[2019-04-14] MEDS: HYDROGEL DRESSING 90 GM TUBE TP SCH (08:17)
[2019-04-14] MEDS: ALBUTEROL FS 2.5 MG/3 ML VIAL.NEB NEB SCH ×4 (08:19→19:29)
[2019-04-14] MEDS: HYDROCODONE/APAP 5/325MG 1 EACH TABLET PO PRN (09:34)
[2019-04-14] MEDS ORDERED: FUROSEMIDE 40 MG/4 ML VIAL IV ONE (12:30)
--- NOTE | 2019-04-14 12:41 | NUR ---
MS RN NOTES-- PT ABLE TO MAKE NEEDS KNOWN W/ [employer]. NEEDS MET AND ANTICIPATED. PT DOES NOT APPEAR TO BE IN ANY APPARENT DISTRESS. WILL CONTINUE TO MONITOR.
[2019-04-14 16:02] VITALS: BP 112/59
[2019-04-14] MEDS: ACETAMINOPHEN 325 MG TABLET PO PRN (17:15)
--- NOTE | 2019-04-14 18:36 | NUR ---
MS RN CLOSING NOTES ALL DUE MEDS GIVEN, NEEDS MET AND RENDERED. PT REMAIN A/O X3, AFEBRILE. RESPIRATIONS ARE EVEN AND UNLABORED, NOT IN ANY ACUTE DISTRESS NOTED. NO FACIAL GRIMACING OR MOANING NOTED. IV ACCESS TO RAC INTACT, NO INFILTRATION NOTED. DRESSING KEPT CLEAN AND DRY. SAFETY MEASURES ARE IN PLACE. REMINDED PT TO USE CALL LIGHT WHEN ASSISTANCE IS NEEDED, CALL LIGHT IS LEFT WITHIN REACH. WILL ENDORSE TO NEXT SHIFT FOR CONTINUITY OF CARE.
--- NOTE | 2019-04-14 19:30 | NUR ---
RN OPEN NOTES RECEIVED PATIENT AWAKE LYING IN BED. A/OX3. KHMER SPEAKING. NO SIGNS OF DISTRESS OR DISCOMFORT. BREATHING EVEN AND UNLABORED. IV ACCESS IN RFA, PATENT AND INTACT. NO SIGNS OF INFILTRATION OR REDNESS. BED IN LOW LOCKED POSITION WITH SIDE RAILS X3. BED ALARM ON. CALL LIGHT WITHIN REACH. WILL CONTINUE TO MONITOR.
[2019-04-14] MEDS ORDERED: SODIUM POLYSTYRENE SULFONATE 15 G/60 ML BOTTLE PO ONE (20:00)
[2019-04-14 21:00] VITALS: BP 105/59
[2019-04-14] MEDS: ENOXAPARIN SODIUM 30 MG/0.3 ML DISP.SYRIN SQ SCH (21:24)
[2019-04-15] MEDS: SULFAMETH/TRIMETH 800/160 MG 1 UDTAB TABLET PO SCH ×2 (06:42→17:46)
--- NOTE | 2019-04-15 07:10 | NUR ---
RN CLOSING NOTES RPATIENT AWAKE LYING IN BED. A/OX2-3. [place]IZ[place] SPEAKING. NO SIGNS OF DISTRESS OR DISCOMFORT. BREATHING EVEN AND UNLABORED. IV ACCESS IN RAC, PATENT AND INTACT. NO SIGNS OF INFILTRATION OR REDNESS. DENIES ANY PAIN AT THIS TIME. ALL NEEDS MET. NO SIGNIFICANT CHANGES THROUGH THE NIGHT. BED IN LOW LOCKED POSITION WITH SIDE RAILS X3. BED ALARM ON. CALL LIGHT WITHIN REACH. ENDORSED TO AM SHIFT FOR VASU.
[2019-04-15] MEDS: ALBUTEROL FS 2.5 MG/3 ML VIAL.NEB NEB SCH ×4 (07:22→19:45)
[2019-04-15 07:52] LABS: BASOPHILS # (AUTO) 0.1 /CMM (0.0-0.2); BASOPHILS % (AUTO) 0.6 % (0.0-2.0); EOSINOPHILS % (AUTO) 0.6 % (0.0-6.0); HEMATOCRIT 27 % (33-45); HEMOGLOBIN 8.9 g/dL (11.5-14.8); LYMPHOCYTES # (AUTO) 1.9 /CMM (0.8-4.8); LYMPHOCYTES % (AUTO) 21.4 % (20.0-44.0); MEAN CORPUSCULAR HGB CONC 34 g/dl (31.0-36.0); MEAN CORPUSCULAR VOLUME 94 fL (82-100); MONOCYTES # (AUTO) 1.1 /CMM (0.1-1.30); MONOCYTES % (AUTO) 11.9 % (2.0-12.0); NEUTROPHILS # (AUTO) 5.9 /CMM (1.8-8.9); NEUTROPHILS % (AUTO) 65.5 % (43.0-81.0); PLATELET COUNT (AUTO) 334 /CMM (150-450); RED BLOOD CELL COUNT(AUTO) 2.85 MIL/uL (4.0-5.2)
[2019-04-15 08:00] VITALS: BP 104/65
[2019-04-15 08:06] LABS: CALCIUM, SERUM 8.2 mg/dL (8.5-10.1); CARBON DIOXIDE 13 mmol/L (21-32); CHLORIDE 102 mmol/L (98-107); CREATININE 2.1 mg/dL (0.6-1.3); GLUCOSE 87 mg/dL (74-106); MAGNESIUM 1.8 mg/dL (1.8-2.4); POTASSIUM 5.4 mmol/L (3.5-5.1); SODIUM SERUM 127 mmol/L (136-145); UREA NITROGEN, BLOOD 38 mg/dL (7-18)
[2019-04-15] MEDS: MEGESTROL ACETATE SUSP 400 MG/10 ML UDC PO SCH ×2 (08:20→17:40)
[2019-04-15] MEDS: FOLIC ACID 1 MG TABLET PO SCH (08:20)
[2019-04-15] MEDS: ACETAMINOPHEN 325 MG TABLET PO PRN (08:20)
[2019-04-15] MEDS: FERROUS SULFATE (325 MG) 325 MG/TAB TABLET PO SCH ×2 (08:20→17:40)
[2019-04-15] MEDS: PANTOPRAZOLE 40 MG TABLET.DR PO SCH (08:20)
[2019-04-15] MEDS: SERTRALINE HCL 25 MG TABLET PO SCH (08:20)
[2019-04-15] MEDS: DOCUSATE SODIUM LIQ 100 MG/10 ML UDC NG SCH ×2 (08:20→17:40)
[2019-04-15] MEDS: ASCORBIC ACID 500 MG TABLET PO SCH ×2 (08:20→17:40)
[2019-04-15] MEDS: HYDROGEL DRESSING 90 GM TUBE TP SCH (08:22)
--- NOTE | 2019-04-15 11:11 | NUR ---
MS RN NOTES-- PT ABLE TO AMBULATE WITH FWW. WALKED PT WITH DTR AROUND UNIT.
[2019-04-15 16:00] VITALS: BP 106/59
--- NOTE | 2019-04-15 16:18 | NUR ---
MS RN NOTES-- RELAYED LAB RESULTS TO DR. JESSIE Brannon/ ORDERS FOR KAYEXELATE 30G PO X1. READ BACK AND VERIFIED. NOTED AND CARRIED OUT.
[2019-04-15] MEDS ORDERED: SODIUM POLYSTYRENE SULFONATE 15 G/60 ML BOTTLE PO ONE (17:00)
[2019-04-15] MEDS ORDERED: IV NS 0.9% 500 ML IV ONE (18:00)
[2019-04-15] MEDS ORDERED: IV NS 0.9% 1,000 ML IV PRN (18:00)
[2019-04-15 20:00] VITALS: BP 132/64
[2019-04-15 20:36] VITALS: BP 112/62
[2019-04-15] MEDS: ENOXAPARIN SODIUM 30 MG/0.3 ML DISP.SYRIN SQ SCH (22:24)
[2019-04-16] MEDS: SULFAMETH/TRIMETH 800/160 MG 1 UDTAB TABLET PO SCH ×2 (06:12→20:23)
--- NOTE | 2019-04-16 07:53 | NUR ---
RN OPENING NOTES PT AWAKE AND RESTING IN BED. FAMILY AT BEDSIDE. NO APPARENT S/S OF PAIN, DISTRESS OR SOB AT THIS TIME. PT HAS RIGHT FA #24 IV INTACT AND PATENT. SAFETY PRECAUTIONS IN PLACE, BED IN LOWEST LOCKED POSITION, X2 SIDE RAILS UP AND CALL LIGHT WITHIN REACH. WILL CONTINUE TO MONITOR.
[2019-04-16 07:54] LABS: CALCIUM, SERUM 7.7 mg/dL (8.5-10.1); CARBON DIOXIDE 18 mmol/L (21-32); CHLORIDE 104 mmol/L (98-107); CREATININE 1.8 mg/dL (0.6-1.3); GLUCOSE 85 mg/dL (74-106); MAGNESIUM 1.9 mg/dL (1.8-2.4); PHOSPHORUS 4.1 mg/dL (2.5-4.9); POTASSIUM 4.8 mmol/L (3.5-5.1); SODIUM SERUM 130 mmol/L (136-145); UREA NITROGEN, BLOOD 39 mg/dL (7-18)
[2019-04-16 08:04] LABS: BASOPHILS % (AUTO) 0.5 % (0.0-2.0); EOSINOPHILS % (AUTO) 0.5 % (0.0-6.0); HEMATOCRIT 24 % (33-45); HEMOGLOBIN 8.3 g/dL (11.5-14.8); LYMPHOCYTES # (AUTO) 1.6 /CMM (0.8-4.8); LYMPHOCYTES % (AUTO) 20.3 % (20.0-44.0); MEAN CORPUSCULAR HGB CONC 34 g/dl (31.0-36.0); MEAN CORPUSCULAR VOLUME 93 fL (82-100); MONOCYTES # (AUTO) 0.8 /CMM (0.1-1.30); MONOCYTES % (AUTO) 10.4 % (2.0-12.0); NEUTROPHILS # (AUTO) 5.5 /CMM (1.8-8.9); NEUTROPHILS % (AUTO) 68.3 % (43.0-81.0); PLATELET COUNT (AUTO) 316 /CMM (150-450); RED BLOOD CELL COUNT(AUTO) 2.63 MIL/uL (4.0-5.2)
[2019-04-16] MEDS: ALBUTEROL FS 2.5 MG/3 ML VIAL.NEB NEB SCH ×4 (08:06→19:48)
[2019-04-16 08:15] VITALS: BP 128/71
[2019-04-16] MEDS: PANTOPRAZOLE 40 MG TABLET.DR PO SCH (09:42)
[2019-04-16] MEDS: ASCORBIC ACID 500 MG TABLET PO SCH ×2 (09:42→17:15)
[2019-04-16] MEDS: SERTRALINE HCL 25 MG TABLET PO SCH (09:42)
[2019-04-16] MEDS: FERROUS SULFATE (325 MG) 325 MG/TAB TABLET PO SCH ×2 (09:42→17:15)
[2019-04-16] MEDS: FOLIC ACID 1 MG TABLET PO SCH (09:42)
[2019-04-16] MEDS: MEGESTROL ACETATE SUSP 400 MG/10 ML UDC PO SCH ×2 (09:42→17:15)
[2019-04-16] MEDS: DOCUSATE SODIUM LIQ 100 MG/10 ML UDC NG SCH ×2 (09:42→17:15)
[2019-04-16] MEDS: HYDROGEL DRESSING 90 GM TUBE TP SCH (09:43)
[2019-04-16 10:55] LABS: EOSINOPHILS % (MANUAL) 1 % (0-4); LYMPHOCYTES % (MANUAL) 19 % (16-48); MONOCYTES % (MANUAL) 13 % (0-11.0); NEUTROPHILS % (MANUAL) 67 (42-76)
[2019-04-16] MEDS: HYDROCODONE/APAP 5/325MG 1 EACH TABLET PO PRN (11:30)
[2019-04-16] MEDS ORDERED: IOHEXOL-350 100 ML VIAL IV ONE (11:40)
[2019-04-16] MEDS ORDERED: CT SWABBABLE VALVE TRANS SET 1 EA INFUS.SET MC ONE (11:41)
[2019-04-16] MEDS ORDERED: IV NS 0.9% 250 ML IV ONE (11:41)
[2019-04-16 15:51] VITALS: BP 132/68
--- NOTE | 2019-04-16 18:32 | NUR ---
RN CLOSING NOTES PT AWAKE AND RESTING IN BED. NO APPARENT S/S OF PAIN, DISTRESS OR SOB AT THIS TIME. PT GIVEN NORCO FOR PAIN. PER FAMILY ONLY GIVE TYLENOL FOR PAIN. PT HAS RIGHT FA #24 IV INTACT AND PATENT. SAFETY PRECAUTIONS IN PLACE, BED IN LOWEST LOCKED POSITION, X2 SIDE RAILS UP AND CALL LIGHT WITHIN REACH. WILL ENDORSE TO FOOD OR BAGGAGE HANDLING RAMPMAN NURSE FOR CONTINUITY OF CARE.
--- NOTE | 2019-04-16 19:00 | NUR ---
MS RN OPENING NOTES Received patient A/O x2, awake on semi-Gonzales's position on bed. On RA, no SOB/respiratory distress noted at this time. No complaints/ s/sx of discomfort noted at this time. Kept bed low and locked, siderails x2 up, bed alarm on. Call light within easy reach. Will continue to monitor accordingly.
[2019-04-16 20:17] VITALS: BP 112/57
[2019-04-16] MEDS: ENOXAPARIN SODIUM 30 MG/0.3 ML DISP.SYRIN SQ SCH (20:24)
--- NOTE | 2019-04-17 02:43 | NUR ---
RT NOTE PT. RECEIVED ON ROOM AIR. PATIENT WAS ON SEMI FOWLERS POSITION AND APPEARED COMFORTABLE. UPON ASSESSMENT PATIENT SPO2 97%, RR 16, HR 67. AUSCULTATION REVEALED CLEAR BREATH SOUND BILATERALLY. NO SOB NOTED. PATIENT TOLERATED BREATHING TREATMENT WELL. WILL CONTINUE TO MONITOR. Addendum: 04/17/19 at 0247 by TONY BOLIVAR RT Amended: Links added.
--- NOTE | 2019-04-17 06:39 | NUR ---
MS RN CLOSING NOTES Patient asleep, easily awaken. On RA, no SOB/respiratory distress noted. No complaints of discomfort/pain at this time. All due meds given as ordered, no ASE noted. All nursing needs attended, no new complaints. Kept on bed clean, dry and comfortable. Call light within easy reach. Endorsed to the next shift.
[2019-04-17 07:30] VITALS: BP 117/62
[2019-04-17] MEDS: MEGESTROL ACETATE SUSP 400 MG/10 ML UDC PO SCH ×2 (08:38→16:31)
[2019-04-17] MEDS: SULFAMETH/TRIMETH 800/160 MG 1 UDTAB TABLET PO SCH (08:38)
[2019-04-17] MEDS: DOCUSATE SODIUM LIQ 100 MG/10 ML UDC NG SCH ×2 (08:38→16:31)
[2019-04-17] MEDS: PANTOPRAZOLE 40 MG TABLET.DR PO SCH (08:39)
[2019-04-17] MEDS: ASCORBIC ACID 500 MG TABLET PO SCH ×2 (08:39→16:31)
[2019-04-17] MEDS: SERTRALINE HCL 25 MG TABLET PO SCH (08:39)
[2019-04-17] MEDS: FERROUS SULFATE (325 MG) 325 MG/TAB TABLET PO SCH ×2 (08:39→16:31)
[2019-04-17] MEDS: FOLIC ACID 1 MG TABLET PO SCH (08:39)
[2019-04-17] MEDS: HYDROGEL DRESSING 90 GM TUBE TP SCH (08:49)
[2019-04-17] MEDS: ALBUTEROL FS 2.5 MG/3 ML VIAL.NEB NEB SCH ×3 (09:11→16:04)
[2019-04-17] MEDS ORDERED: LEVOFLOXACIN (250MG) 250 MG TABLET PO SCH (12:00)
[2019-04-17 16:00] VITALS: BP 101/56
[2019-04-17] MEDS ORDERED: Levofloxacin (250MG) PO (16:56)
--- NOTE | 2019-04-17 18:23 | NUR ---
TRANSPORT TRUCK DRIVER NOTES PT RETURNING TO [facility]. REPORT GIVEN TO TIM . ALL DISCHARGE PAPERWORK EXPLAINED, SIGNED, COPIED, AND GIVEN TO THE PATIENT. IV AND ID REMOVED PRIOR TO DISCHARGE. ALL PATIENT BELONGINGS TAKEN WITH PATIENT AT DISCHARGE. PATIENT TRANSPORTED VIA AMBULANCE.
[2019-05-19] MEDS ORDERED: LEVO500T75 PO (12:20)
== END 2019-04-17 18:18 | DRG 823 ==
LOC: ER 17:49 → MED 20:40
PROVIDERS: ATTEND Nurse Practitioner Acute Care
PROC: 0JB70ZZ Excision of Back Subcutaneous Tissue and Fascia, Open Approach (ICD-10-PCS; principal; 2019-04-12)
DX: C90.00 Multiple myeloma not having achieved remission (principal); N17.0 Acute kidney failure with tubular necrosis; L89.153 Pressure ulcer of sacral region, stage 3; E43 Unspecified severe protein-calorie malnutrition; R64 Cachexia; E87.1 Hypo-osmolality and hyponatremia; N39.0 Urinary tract infection, site not specified; Z68.1 Body mass index [BMI] 19.9 or less, adult; D61.818 Other pancytopenia; I13.0 Hypertensive heart and chronic kidney disease with heart failure and stage 1 through stage 4 chronic kidney disease, or unspecified chronic kidney disease; G93.40 Encephalopathy, unspecified; I27.20 Pulmonary hypertension, unspecified; E86.1 Hypovolemia; E86.0 Dehydration; F41.9 Anxiety disorder, unspecified; K21.9 Gastro-esophageal reflux disease without esophagitis; B96.1 Klebsiella pneumoniae [K. pneumoniae] as the cause of diseases classified elsewhere; E87.5 Hyperkalemia; D64.9 Anemia, unspecified; M85.80 Other specified disorders of bone density and structure, unspecified site; M06.9 Rheumatoid arthritis, unspecified; G89.29 Other chronic pain; M54.5 Low back pain; F32.9 Major depressive disorder, single episode, unspecified; Z88.0 Allergy status to penicillin; I50.9 Heart failure, unspecified; N18.9 Chronic kidney disease, unspecified; I44.1 Atrioventricular block, second degree; Z87.11 Personal history of peptic ulcer disease
CPT/HCPCS: 36415; 71045-TC; 74018; 80048-TC; 80053-TC; 80061-TC; 80076-TC; 81000-TC; 82550-TC; 83605-TC; 83735-TC; 83935-TC; 83970; 84100-TC; 84155; 84165; 84443-TC; 84484-TC; 84550-TC; 85025-TC; 85730-TC; 87040-TC; 87081-TC; 87086-TC; 87186-TC; 94799-TC; 97116-TC; 97530-TC; A4216; A6248; G0378; J1650; J1940; J1956; J3475; J7030; J7040; J7050; Q9967

== ENCOUNTER 2019-04-20 14:37 | Emergency (ER) | payer MEDICARE, OTHER ==
[~2019-04-20] VITALS: Ht 147.3 cm; Wt 39.5 kg
[~2019-04-20 14:37] MED LIST changes: +Levofloxacin (250MG) PO; +MAGN400T6 PO; -MAGN400T8 PO
--- NOTE | 2019-04-20 14:47 | NUR ---
IBETH MELENDEZ FROM [facility] DUE TO LOW SODIUM,122. PATIENT A/OX2, NO DISTRESS NOTED, NEEDS ATTNEDED. CHANGED INTO GOWN, ATTACHED TO THE GAS ATTENDANT. KEPT COMFORTABLE.
--- NOTE | 2019-04-20 15:21 | NUR ---
BLOOD DRAWN AND SENT TO LAB.
[2019-04-20 15:31] LABS: BASOPHILS # (AUTO) 0.1 /CMM (0.0-0.2); BASOPHILS % (AUTO) 0.6 % (0.0-2.0); EOSINOPHILS % (AUTO) 0.8 % (0.0-6.0); HEMATOCRIT 24 % (33-45); HEMOGLOBIN 8.2 g/dL (11.5-14.8); LYMPHOCYTES # (AUTO) 2.7 /CMM (0.8-4.8); LYMPHOCYTES % (AUTO) 26.4 % (20.0-44.0); MEAN CORPUSCULAR HGB CONC 34 g/dl (31.0-36.0); MEAN CORPUSCULAR VOLUME 93 fL (82-100); MONOCYTES # (AUTO) 0.9 /CMM (0.1-1.30); NEUTROPHILS # (AUTO) 6.5 /CMM (1.8-8.9); NEUTROPHILS % (AUTO) 63.2 % (43.0-81.0); PLATELET COUNT (AUTO) 329 /CMM (150-450); RED BLOOD CELL COUNT(AUTO) 2.56 MIL/uL (4.0-5.2); WHITE BLOOD COUNT (AUTO) 10.2 K/uL (4.3-11.0)
[2019-04-20 15:33] LABS: CALCIUM, SERUM 7.9 mg/dL (8.5-10.1); CARBON DIOXIDE 16 mmol/L (21-32); CHLORIDE 101 mmol/L (98-107); CREATININE 1.6 mg/dL (0.6-1.3); GLUCOSE 111 mg/dL (74-106); POTASSIUM 4.7 mmol/L (3.5-5.1); SODIUM SERUM 126 mmol/L (136-145); UREA NITROGEN, BLOOD 50 mg/dL (7-18)
--- NOTE | 2019-04-20 15:40 | NUR ---
URINE COLLECTED FOR LAB.
--- NOTE | 2019-04-20 15:46 | NUR ---
PATIENT REPOSITIONED FOR COMFORT AND TO RELIEVE FROM PRESSURE FROM [facility].
[2019-04-20 15:51] LABS: APPEARANCE,URINE Clear (CLEAR); BILIRUBIN,URINE Negative (NEGATIVE); BLOOD, URINE Negative Ery/uL (NEGATIVE); COLOR,URINE Yellow (YELLOW); KETONES,URINE Negative (NEGATIVE); LEUKOCYTE ESTERASE ,URINE Negative (NEGATIVE); NITRITE, URINE Negative (NEGATIVE); PH,URINE 5.5 (5.0-8.0); PROTEIN,URINE Trace mg/dl (NEGATIVE); UGLUCOSE Negative (NEGATIVE); UROBILINOGEN,URINE 0.2 EU/dL (0.2)
[2019-04-20 16:01] LABS: CREATININE, URINE 49.1 MG/DL (30.0-125.0)
[2019-04-20 16:03] LABS: BACTERIA,URINE Few /HPF (None Seen); RBC,URINE 0-2 /HPF (0-2); SQUAMOUS EPITHELIAL CELL,UR Few /HPF (None Seen); URINE AMORPHOUS URATE Few /HPF (None Seen); WBC,URINE 0-2 /HPF (0-3)
[2019-04-20] MEDS ORDERED: NA P133E RC (16:21)
[2019-04-20] MEDS ORDERED: LUBI24CA5 PO (16:21)
[2019-04-20] MEDS ORDERED: MIRT15TA PO (16:21)
[2019-04-20] MEDS ORDERED: IPRA3AMP23 IH (16:21)
[2019-04-20] MEDS ORDERED: LEVO500T75 PO (16:21)
[2019-04-20] MEDS ORDERED: BISA10SU11 RC (16:21)
[2019-04-20] MEDS ORDERED: ACET-73 PO (16:21)
[2019-04-20] MEDS ORDERED: MAGN400O6 PO (16:21)
--- NOTE | 2019-04-20 16:49 | NUR ---
[facility] PAGED
[2019-04-20] MEDS ORDERED: IV NS 0.9% 1,000 ML BAG IV ONE (17:00)
--- NOTE | 2019-04-20 17:00 | NUR ---
RECEIVED ORDER FROM DR. BAUM TO GIVE 0.9% NS 1L IV.
--- NOTE | 2019-04-20 18:22 | NUR ---
KYLEIGH TRIP# [id number] ETA 90MINS
--- NOTE | 2019-04-20 19:52 | NUR ---
REPORT GIV[facility] TO [facility]
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
[2019-04-20 20:20] VITALS: BP 106/67
== END 2019-04-20 20:10 ==
LOC: ER 14:38 → UNDOADMIN 17:23 → TELE 17:23 → ER 20:10
DX: E87.1 Hypo-osmolality and hyponatremia (principal); E86.0 Dehydration; I10 Essential (primary) hypertension; K21.9 Gastro-esophageal reflux disease without esophagitis; G89.29 Other chronic pain; F32.9 Major depressive disorder, single episode, unspecified; Z88.0 Allergy status to penicillin; Z85.79 Personal history of other malignant neoplasms of lymphoid, hematopoietic and related tissues; Z88.1 Allergy status to other antibiotic agents; Z79.899 Other long term (current) drug therapy
CPT/HCPCS: 36415; 71045; 80048; 81001; 82570; 83935 ×2; 84300; 85025; 93005 ×2; 96360; 99284; J7030; 81000-TC

== ENCOUNTER 2019-05-04 10:34 | Inpatient (IN) | payer MEDICARE, OTHER ==
[~2019-05-04] VITALS: Ht 149.9 cm; Wt 39.0 kg
[2019-05-04] VITALS (7 sets, daily range): BP systolic 107–135; BP diastolic 65–87
[~2019-05-04 10:34] MED LIST changes: +ACET-73 PO; -ALBUT2 NEB; -ASCO500T9 PO; -AZTR1VIA2 IV; +BISA10SU11 RC; -HYDR200T4 PO; +IPRA3AMP23 IH; +LEVO500T75 PO; -Levofloxacin (250MG) PO; +MAGN400O6 PO; -MEGE400O4 PO; -METH25VI11 IJ; +MIRT15TA PO; +NA P133E RC; -PANT40TA2 PO; -RXVAN XX; -VANC750F IV
--- NOTE | 2019-05-04 10:55 | NUR ---
"BHAVNA FROM [facility] SENT BY PMD FOR LOW H&H" PT AAOX4, -SOB, NAD NOTED. VSS. PENDING MD CHUNG
[2019-05-04] MEDS ORDERED: IV NS 0.9% 500 ML BAG IV ONE (11:00)
[2019-05-04 11:20] LABS: BASOPHILS # (AUTO) 0.1 /CMM (0.0-0.2); BASOPHILS % (AUTO) 0.5 % (0.0-2.0); EOSINOPHILS % (AUTO) 1.1 % (0.0-6.0); HEMATOCRIT 22 % (33-45); HEMOGLOBIN 7.3 g/dL (11.5-14.8); LYMPHOCYTES # (AUTO) 4.3 /CMM (0.8-4.8); LYMPHOCYTES % (AUTO) 44.2 % (20.0-44.0); MEAN CORPUSCULAR HGB CONC 34 g/dl (31.0-36.0); MEAN CORPUSCULAR VOLUME 95 fL (82-100); MONOCYTES # (AUTO) 0.9 /CMM (0.1-1.30); MONOCYTES % (AUTO) 9.4 % (2.0-12.0); NEUTROPHILS # (AUTO) 4.4 /CMM (1.8-8.9); NEUTROPHILS % (AUTO) 44.8 % (43.0-81.0); PLATELET COUNT (AUTO) 280 /CMM (150-450); RED BLOOD CELL COUNT(AUTO) 2.28 MIL/uL (4.0-5.2); WHITE BLOOD COUNT (AUTO) 9.8 K/uL (4.3-11.0)
[2019-05-04 11:34] LABS: CALCIUM, SERUM 6.9 mg/dL (8.5-10.1); CARBON DIOXIDE 16 mmol/L (21-32); CHLORIDE 110 mmol/L (98-107); CREATININE 1.1 mg/dL (0.6-1.3); GLUCOSE 86 mg/dL (74-106); POTASSIUM 4.5 mmol/L (3.5-5.1); SODIUM SERUM 133 mmol/L (136-145); UREA NITROGEN, BLOOD 20 mg/dL (7-18)
[2019-05-04] MEDS ORDERED: ASCO500T9 PO (11:42)
[2019-05-04] MEDS ORDERED: HYDR-4384 PO (11:42)
[2019-05-04] MEDS ORDERED: MAG30ORA PO (11:42)
[2019-05-04] MEDS ORDERED: ENOX40DI SQ (11:42)
[2019-05-04] MEDS ORDERED: ZOLP5TAB2 PO (11:42)
[2019-05-04] MEDS ORDERED: ONDA4TAB5 PO (11:42)
[2019-05-04 11:47] LABS: ALANINE AMINOTRANSFERASE 14 U/L (12-78); ALKALINE PHOSPHATASE 52 U/L (46-116); ASPARTATE AMINOTRANSFERASE 17 U/L (15-37); BILIRUBIN,DIRECT 0.1 mg/dL (0.0-0.2); BILIRUBIN,TOTAL 0.2 mg/dL (0.2-1.0); TOTAL PROTEIN, SERUM 13.2 g/dL (6.4-8.2)
--- NOTE | 2019-05-04 11:48 | NUR ---
REPORT GIVEN TO YOVANI ROCHE FOR VASU PT WILL BE TRANSPORTEDT 1ST FLOOR VIA ACLS PROTOCL
[2019-05-04 12:13] LABS: OCCULT BLOOD STOOL NEGATIVE (NEGATIVE)
--- NOTE | 2019-05-04 12:49 | NUR ---
TRANSFERRED PT TO 1ST FLOOR
--- NOTE | 2019-05-04 13:30 | NUR ---
SENIOR QA AUTOMATION ENGINEER NOTE RECEIVED PATIENT FROM ER WITH DX ANEMIA UNDER CARE DR CASTILLO , PATIENT ALERT, ORIENTED BUT SPEAKS URDU ,PLACED ON TELE MONITOR SR 89 , ON 2L O2 SAT 89% AT THIS TIME, ASSISTED TO BSC, ABLE TO URINATE WELL, KEEP CLEAN DRY ,PLAN O CARE DISCUSSED WITH PATIENT, HOSPITAL ORIENTATION DONE ,BELONGING CHECKED BY SALES REPRESENTATIVE [facility],BED IN LOWEST AND LOCKED POSITION , CALL LIGHT WITHIN REACH , WILL CALL DR CASTILLO FOR ADMITTING ORDERS
[2019-05-04] MEDS: FUROSEMIDE 40 MG/4 ML VIAL IV SCH (14:23)
[2019-05-04] MEDS ORDERED: MAG HYDROX/AL HYDROX/SIMETH 30 ML UDC PO PRN (14:30)
[2019-05-04] MEDS ORDERED: HYDROCODONE/APAP 5/325MG 1 EACH TABLET PO PRN (14:30)
[2019-05-04] MEDS: IPRATROPIUM NEB FS 0.5 MG/2.5 ML AMPUL.NEB NEB SCH ×2 (14:30→19:42)
[2019-05-04] MEDS ORDERED: ZOLPIDEM TARTRATE 5 MG TABLET PO PRN ×2 (14:30)
[2019-05-04] MEDS ORDERED: BISACODYL SUPP (10 MG) 10 MG/SUPP.RECT SUPP.RECT RC PRN (14:30)
[2019-05-04] MEDS ORDERED: NA PHOS,M-B/NA PHOS,DI-BA 1 EA ENEMA RC PRN (14:30)
[2019-05-04] MEDS ORDERED: Z GUARD REMEDY 2 OZ OINT TP PRN (14:30)
[2019-05-04] MEDS ORDERED: MAGNESIUM HYDROXIDE 30 ML UDC PO PRN (14:30)
[2019-05-04] MEDS ORDERED: MISCELLANEOUS MED 1 EA EA PO PRN (14:30)
[2019-05-04] MEDS ORDERED: ONDANSETRON HCL/PF 4 MG/2 ML VIAL IVP PRN (14:30)
--- NOTE | 2019-05-04 15:17 | NUR ---
CALL CENTER DIRECTOR NOTE EKG DONE AND CONSENT WITH SON OBTAINED FOR BLOOD TRANSFUSION
--- NOTE | 2019-05-04 16:20 | NUR ---
SALESPERSON PETS AND PET SUPPLIES NOTE BLOOD TRANSFUSION I UNIT PRBC STARTED ORDERED , NOT IN DISTRESS AT THIS TIME
[2019-05-04] MEDS: DOCUSATE SODIUM LIQ 100 MG/10 ML UDC NG SCH (16:51)
[2019-05-04] MEDS: FERROUS SULFATE (325 MG) 325 MG/TAB TABLET PO SCH (16:51)
--- NOTE | 2019-05-04 18:16 | NUR ---
DRAW OFF WORKER NOTE CONT ON BLOOD TRANSFUSION NO ADVERSE REACTION NOTED, HAVING DINNER, ABLE TO EAT WELL , SON AT BEDSIDE
[2019-05-04] MEDS: ALBUTEROL FS 2.5 MG/0.5 ML VIAL.NEB NEB SCH (19:42)
--- NOTE | 2019-05-04 19:47 | NUR ---
CLUB ATTENDANT INITIAL NOTE RECIEVED PT WITH ON GOING BLOOD TRANSFUSION 1 UNIT, TOLERATING WELL, NO REACTION NOTED, VS STABLE, AOX3, 2L NC, DENIES ANY SOB OR DISCOMFORT, IV SITE INTACT, WELL SECURE, CLEAN AND DRY, ALL NEEDS MET, CL WR., WILL CONT' TO MONITOR.
[2019-05-05] MEDS: IPRATROPIUM NEB FS 0.5 MG/2.5 ML AMPUL.NEB NEB SCH ×4 (02:24→20:26)
[2019-05-05] MEDS: ALBUTEROL FS 2.5 MG/0.5 ML VIAL.NEB NEB SCH ×4 (02:24→20:26)
--- NOTE | 2019-05-05 06:42 | NUR ---
NUTRITION SERVICES MANAGER CLOSING NOTE PT AOX3, S/P BLOOD TRANSFUSION 1 UNIT, TOLERATING WELL, NO REACTION NOTED, VS STABLE, AOX3, 2L NC, DENIES ANY SOB OR DISCOMFORT, IV SITE INTACT, WELL SECURE, CLEAN AND DRY, ALL NEEDS MET, CL WR., WILL CONT' TO MONITOR.
[2019-05-05 07:15] LABS: BASOPHILS % (AUTO) 0.6 % (0.0-2.0); EOSINOPHILS % (AUTO) 1.2 % (0.0-6.0); HEMATOCRIT 24 % (33-45); HEMOGLOBIN 8.1 g/dL (11.5-14.8); LYMPHOCYTES # (AUTO) 2.7 /CMM (0.8-4.8); LYMPHOCYTES % (AUTO) 40.7 % (20.0-44.0); MEAN CORPUSCULAR HGB CONC 34 g/dl (31.0-36.0); MEAN CORPUSCULAR VOLUME 91 fL (82-100); MONOCYTES # (AUTO) 0.6 /CMM (0.1-1.30); MONOCYTES % (AUTO) 9.7 % (2.0-12.0); NEUTROPHILS # (AUTO) 3.2 /CMM (1.8-8.9); NEUTROPHILS % (AUTO) 47.8 % (43.0-81.0); PLATELET COUNT (AUTO) 226 /CMM (150-450); RED BLOOD CELL COUNT(AUTO) 2.65 MIL/uL (4.0-5.2); WHITE BLOOD COUNT (AUTO) 6.6 K/uL (4.3-11.0)
--- NOTE | 2019-05-05 07:15 | NUR ---
RN INITIAL NOTE PATIENT IN BED, AWAKE AND ALERT. URDU SPEAKING BUT UNDERSTANDS AND CAN EXPRESS IN ROMANSH. ON 2L NC, NO COMPLAINS OF ANY SOB. ON TELE MONITOR, SR. HAS A BEDSIDE COMMODE AT BEDSIDE. AMBULATORY WITH ASSISTANCE. HAS A RIGHT AC #20 SALINE LOCKED. PENDING COLLECTION OF STOOL SAMPLE FOR OB. HAS AN ONCOLOGY F/U. NO COMPLAINS OF ANY PAIN. BED LOCKED AND IN LOWEST POSITION. CALL LIGHT WITHIN REACH, WILL CONTINUE TO MONITOR
[2019-05-05 07:49] LABS: THYROID STIMULATING HORMONE 0.071 uIU/mL (0.358-3.74)
[2019-05-05 08:00] VITALS: BP 135/81
[2019-05-05 08:00] LABS: BILIRUBIN,TOTAL 0.2 mg/dL (0.2-1.0); CALCIUM, SERUM 6.5 mg/dL (8.5-10.1); CREATININE 1.1 mg/dL (0.6-1.3); MAGNESIUM 1.6 mg/dL (1.8-2.4); PHOSPHORUS 2.1 mg/dL (2.5-4.9); TOTAL PROTEIN, SERUM 12.4 g/dL (6.4-8.2)
[2019-05-05] MEDS: DOCUSATE SODIUM LIQ 100 MG/10 ML UDC NG SCH ×2 (08:26→16:39)
[2019-05-05] MEDS: PANTOPRAZOLE 40 MG TABLET.DR PO SCH (08:26)
[2019-05-05] MEDS: FERROUS SULFATE (325 MG) 325 MG/TAB TABLET PO SCH ×2 (08:26→16:39)
[2019-05-05] MEDS: FOLIC ACID 1 MG TABLET PO SCH (08:26)
[2019-05-05] MEDS: ASCORBIC ACID 500 MG TABLET PO SCH (08:26)
[2019-05-05] MEDS: FUROSEMIDE 40 MG/4 ML VIAL IV SCH (08:26)
--- NOTE | 2019-05-05 09:40 | NUR ---
WOUND CARE CONSULT: PT FOLLOWED BY SURGICAL TEAM FOR WOUND CARE. DEFER TO SURGICAL TEAM FOR WOUND TREATMENT PLAN. PT ON KAYODE ISOFLEX LOW AIRLOSS BED. CURRENT SHARMILA SCORE IS 19. DISCUSSED SKIN PROTECTION WITH NURSING STAFF. WILL SEE PRN.
--- NOTE | 2019-05-05 09:50 | NUR ---
RT NOTE PT IS REFUSING ABG AT THIS TIME UNTIL SHE SPEAKS TO HER SON. RN IS AWARE AND WILL CALL WHEN READY.
[2019-05-05] MEDS ORDERED: K PHOS NEUTRAL 250 MG TABLET PO ONE (10:00)
[2019-05-05] MEDS: Magnesium 1GM/D5W 100ML PREMIX 100 ML IV SCH ×2 (10:21→13:41)
[2019-05-05 11:04] LABS: ABG BASE EXCESS -10.3 mmol/L; ABG OXYGEN SATURATION 98.8 % (92.0-98.5); ABG PCO2 19.1 mmHg (35.0-45.0); ABG PH 7.433 (7.350-7.450); ABG PO2 166.6 mmHg (75.0-100.0); AaDO2 39.2 mmHg; COHb 0.1 % (0.5-1.5); MetHb 0.7 % (0.0-1.5); SITE, ABG Right Radial; VENT MODE, BG 3L NC
--- NOTE | 2019-05-05 11:15 | NUR ---
RT NOTE PT ABG RESULTS GIVEN TO MARY ROCHE TO CALL DR. RICKS.
--- NOTE | 2019-05-05 11:53 | NUR ---
RN NOTE PAGED DR RICKS ABOUT THE PATIENT'S ABG RESULTS. PER MD, HE IS ALREADY AWARE. NNO
[2019-05-05 12:00] VITALS: BP 107/57
[2019-05-05 16:00] VITALS: BP 111/54
--- NOTE | 2019-05-05 18:43 | NUR ---
RN CLOSING NOTE PATIENT IN BED, AWAKE AND ALERT. ALL MEDS GIVEN. ALL NEEDS MET. SONNAUN WAS AT BEDSIDE REQUESTED ENSURE AT BEDTIME. METAL WELDER AWARE. ORDER CARRIED OUT. BED LOCKED AND IN LOWEST POSITION. CALL LIGHT WITHIN REACH. WILL ENDORSE TO NOC SHIFT FOR VASU
[2019-05-05 20:00] VITALS: BP 125/68
--- NOTE | 2019-05-05 20:52 | NUR ---
JOB PRESS FEEDER NOTES RECEIVED PT ON BED. A/O X 2. ON NASAL CANNULA 2LPM NO RESPIRATORY DISTRESS NOTED. ON TELE MONITOR SR. IV ACCESS ON RAC G20 PATENT AND INTACT. HEAD OF BED ELEVATED. SIDE RAILS UP X 3. BED IN LOW AND LOCKED POSITION. BED ALARM ON. CALL LIGHT WITHIN REACH. WILL MONITOR PT CLOSELY
--- NOTE | 2019-05-05 21:32 | NUR ---
RELATIONS LIAISON NOTES ENSURE NOT GIVEN, ENSURE NOT AVAILABLE. WILL F/U IN AM.
[2019-05-05] MEDS ORDERED: ENSURE ENLIVE 237 ML LIQUID (VANILLA) PO SCH (22:00)
[2019-05-06] VITALS: BP 131/76
[2019-05-06] MEDS: ALBUTEROL FS 2.5 MG/0.5 ML VIAL.NEB NEB SCH ×3 (00:34→13:30)
[2019-05-06] MEDS: IPRATROPIUM NEB FS 0.5 MG/2.5 ML AMPUL.NEB NEB SCH ×3 (00:34→13:30)
[2019-05-06 04:00] VITALS: BP 134/72
[2019-05-06 07:05] LABS: MAGNESIUM 2.1 mg/dL (1.8-2.4)
--- NOTE | 2019-05-06 07:12 | NUR ---
CITY TREASURER NOTES NO ACUTE CHANGES NOTED DURING THE SHIFT. NO RESPIRATORY DISTRESS NOTED. WILL ENDORSE TO THE AM NURSE FOR CONTINUITY OF CARE.
--- NOTE | 2019-05-06 07:38 | NUR ---
RN OPENING NOTES RECEIVED PATIENT SLEEPING IN BED COMFORTABLY, EASILY AROUSED. SHE IS AOX4, VERBAL, AND ON BEDREST. SHE DENIES ANY PAIN OR SOB AT THIS TIME. SHE IS ON 2L OF OXYGEN VIA NC, TOLERATING WELL. SHE IS ON A REGULAR DIET. RAC 20G SL, INTACT AND PATENT. SAFETY MEASURES HAVE BEEN IMPLEMENTED, CALL LIGHT IS WITHIN REACH, BED IS IN LOWEST AND LOCKED POSITION, SIDE RAILS UP X2, WILL CONTINUE TO MONITOR FOR ANY CHANGES.
[2019-05-06 08:00] VITALS: BP 140/77
[2019-05-06] MEDS: PANTOPRAZOLE 40 MG TABLET.DR PO SCH (09:28)
[2019-05-06] MEDS: FERROUS SULFATE (325 MG) 325 MG/TAB TABLET PO SCH (09:28)
[2019-05-06] MEDS: FOLIC ACID 1 MG TABLET PO SCH (09:28)
[2019-05-06] MEDS: FUROSEMIDE 40 MG/4 ML VIAL IV SCH (09:28)
[2019-05-06] MEDS: DOCUSATE SODIUM LIQ 100 MG/10 ML UDC NG SCH (09:28)
[2019-05-06] MEDS: ASCORBIC ACID 500 MG TABLET PO SCH (09:29)
[2019-05-06] MEDS ORDERED: K PHOS NEUTRAL 250 MG TABLET PO ONE (10:00)
[2019-05-06 12:00] VITALS: BP 104/72
--- NOTE | 2019-05-06 13:20 | NUR ---
PT HAS BEEN DISCHARGED FROM THE HOSPITAL. SHE LEFT IN STABLE CONDITION TO [facility] VIA EMT. EXIT CARE INSTRUCTIONS PROVIDED, VITAL SIGNS WERE STABLE. IV SITE WAS REMOVED, BELONGINGS LIST WAS CHECKED OFF, PICTURES OF WOUNDS WERE TAKEN. TRANSFER REPORT GIVEN TO BLANCO
== END 2019-05-06 14:17 | DRG 189 ==
LOC: ER 10:37 → TELE1 11:26
PROVIDERS: ADMIT Internal Medicine; ATTEND Internal Medicine
PROC: 30233P1 Transfusion of Nonautologous Frozen Red Cells into Peripheral Vein, Percutaneous Approach (ICD-10-PCS; principal; 2019-05-04)
DX: J96.01 Acute respiratory failure with hypoxia (principal); L89.153 Pressure ulcer of sacral region, stage 3; E43 Unspecified severe protein-calorie malnutrition; N17.0 Acute kidney failure with tubular necrosis; I50.33 Acute on chronic diastolic (congestive) heart failure; C90.00 Multiple myeloma not having achieved remission; R64 Cachexia; Z68.1 Body mass index [BMI] 19.9 or less, adult; I13.0 Hypertensive heart and chronic kidney disease with heart failure and stage 1 through stage 4 chronic kidney disease, or unspecified chronic kidney disease; D61.818 Other pancytopenia; D64.9 Anemia, unspecified; K21.9 Gastro-esophageal reflux disease without esophagitis; M06.9 Rheumatoid arthritis, unspecified; F32.9 Major depressive disorder, single episode, unspecified; Z88.0 Allergy status to penicillin; D63.8 Anemia in other chronic diseases classified elsewhere; E88.09 Other disorders of plasma-protein metabolism, not elsewhere classified; I27.20 Pulmonary hypertension, unspecified; M85.80 Other specified disorders of bone density and structure, unspecified site; G89.29 Other chronic pain; M54.5 Low back pain; F41.9 Anxiety disorder, unspecified; Z87.11 Personal history of peptic ulcer disease; I44.1 Atrioventricular block, second degree; N18.9 Chronic kidney disease, unspecified
CPT/HCPCS: 36415; 36600; 71045-TC; 80048-TC; 80053-TC; 80061-TC; 80076-TC; 82272-TC; 82803-TC; 83735-TC; 84100-TC; 84439-TC; 84443-TC; 84484-TC; 85025-TC; 85730-TC; 86850-TC; 86921-TC; 87081-TC; 94799-TC; G0378; J1940; J3475; J7050; P9016-BL

== ENCOUNTER 2019-05-15 22:42 | Inpatient (IN) | payer MEDICARE, OTHER ==
[~2019-05-15] VITALS: Ht 149.9 cm; Wt 37.9 kg
[~2019-05-15 22:42] MED LIST changes: -AMLO5TAB9 PO; +ASCO500T9 PO; -FURO20TA4 PO; +HYDR-4384 PO; -LEVO500T75 PO; -LUBI24CA5 PO; +MAG30ORA PO; -MAGN400T6 PO; -MIRT15TA PO; +ONDA4TAB5 PO; -SERT25TA5 PO; +ZOLP5TAB2 PO
--- NOTE | 2019-05-15 23:11 | NUR ---
ANGEL FROM SNF. TO ER BED 8. AAOX1. SOB, BREATHING RAPID AND DEEP. BROUGHT IN FOR FEVER. PER EMS REPORT, PT WAS NOTED WITH ELEVATED TEMP AT THE FACILTY @ 7:30 PM AND WAS GIVEN TYLENOL WHICH DECREASED THE TEMP. PT TEMP WENT BACK UP AGAIN AND SENT TO HOSP. PT NOTED TACHYCARDIC ON THE MONITOR. RECTAL TEMP 100.5. PT ARRIVED WITH A LINE ON THE L AC 20G WITH 500ML NS BAG. EKG DONE. AWAITING MD FOR EVAL.
[2019-05-15] MEDS ORDERED: LEVOFLOXACIN 750 MG /D5W 150ML 150 ML IV ONE (23:28)
[2019-05-15] MEDS ORDERED: LEVOFLOXACIN 750 MG /D5W 150ML PIGGYBACK IV ONE (23:30)
[2019-05-15 23:34] LABS: BASOPHILS % (AUTO) 0.3 % (0.0-2.0); EOSINOPHILS % (AUTO) 0.2 % (0.0-6.0); HEMATOCRIT 24 % (33-45); HEMOGLOBIN 7.8 g/dL (11.5-14.8); LYMPHOCYTES # (AUTO) 1.7 /CMM (0.8-4.8); LYMPHOCYTES % (AUTO) 11.8 % (20.0-44.0); MEAN CORPUSCULAR HGB CONC 33 g/dl (31.0-36.0); MEAN CORPUSCULAR VOLUME 93 fL (82-100); MONOCYTES # (AUTO) 1.1 /CMM (0.1-1.30); MONOCYTES % (AUTO) 7.9 % (2.0-12.0); NEUTROPHILS # (AUTO) 11.3 /CMM (1.8-8.9); NEUTROPHILS % (AUTO) 79.8 % (43.0-81.0); PLATELET COUNT (AUTO) 243 /CMM (150-450); RED BLOOD CELL COUNT(AUTO) 2.56 MIL/uL (4.0-5.2); WHITE BLOOD COUNT (AUTO) 14.2 K/uL (4.3-11.0)
[2019-05-15 23:42] LABS: CALCIUM, SERUM 8.4 mg/dL (8.5-10.1); CARBON DIOXIDE 14 mmol/L (21-32); CHLORIDE 106 mmol/L (98-107); CREATININE 1.4 mg/dL (0.6-1.3); GLUCOSE 117 mg/dL (74-106); POTASSIUM 5.5 mmol/L (3.5-5.1); SODIUM SERUM 126 mmol/L (136-145); UREA NITROGEN, BLOOD 46 mg/dL (7-18)
--- NOTE | 2019-05-15 23:52 | NUR ---
316-2, BED NOT READY YET
[2019-05-16] VITALS (8 sets, daily range): BP systolic 90–129; BP diastolic 49–81
[2019-05-16] MEDS ORDERED: IV NS 0.9% 1,000 ML BAG IV ONE
[2019-05-16 00:02] LABS: ALANINE AMINOTRANSFERASE 12 U/L (12-78); ALBUMIN 2.2 g/dL (3.4-5.0); ALKALINE PHOSPHATASE 55 U/L (46-116); ASPARTATE AMINOTRANSFERASE 16 U/L (15-37); B-TYPE NATRIURETIC PEPTIDE 12151 PG/ML (0-125); BILIRUBIN,DIRECT 0.1 mg/dL (0.0-0.2); BILIRUBIN,TOTAL 0.3 mg/dL (0.2-1.0); TOTAL PROTEIN, SERUM 13.6 g/dL (6.4-8.2)
--- NOTE | 2019-05-16 00:10 | NUR ---
REPORT GIVEN TO KALEY ARGUETA FOR VASU.
[2019-05-16 00:19] LABS: APPEARANCE,URINE Cloudy (CLEAR); BILIRUBIN,URINE Negative (NEGATIVE); BLOOD, URINE Trace-lysed Ery/uL (NEGATIVE); COLOR,URINE Yellow (YELLOW); KETONES,URINE Negative (NEGATIVE); LEUKOCYTE ESTERASE ,URINE Negative (NEGATIVE); NITRITE, URINE Negative (NEGATIVE); PROTEIN,URINE Trace mg/dl (NEGATIVE); UGLUCOSE Negative (NEGATIVE); UROBILINOGEN,URINE 0.2 EU/dL (0.2)
--- NOTE | 2019-05-16 00:20 | NUR ---
RN OPEN NOTES RECEIVED PATIENT FROM ER VIA [facility] WITH FAMILY AT BEDSIDE. A/O X2. AMHARIC SPEAKING. NO SIGNS OF DISTRESS OR DISCOMFORT. BREATHING EVEN AND UNLABORED. ON 2LPM O2 VIA NC. IV ACCESS IN LAC WITH NS AND LEVAQUIN INFUSING, PATENT AND INTACT, NO SIGNS OF REDNESS OR INFILTRATION. ORIENTED PATIENT AND FAMILY TO UNIT AND ROOM. ATTACHED TELE MONITOR WITH ST 125 NOTED. BED IN LOW LOCKED POSITION WITH SIDE RAILS X2. CALL LIGHT WITHIN REACH. WILL CONTINUE TO MONITOR.
--- NOTE | 2019-05-16 00:25 | NUR ---
PT TRANSPORTED TO UNIT ON [facility]. W/ RN AND EMT AT BEDSIDE W/ ACLS PROTOCOL. NAD NOTED. FAMILY AT BEDSIDE
[2019-05-16] MEDS ORDERED: ZOLPIDEM TARTRATE 5 MG TABLET PO PRN (01:30)
[2019-05-16] MEDS ORDERED: BISACODYL SUPP (10 MG) 10 MG/SUPP.RECT SUPP.RECT RC PRN (01:30)
[2019-05-16] MEDS ORDERED: MAG HYDROX/AL HYDROX/SIMETH 30 ML UDC PO PRN (01:30)
[2019-05-16] MEDS ORDERED: MISCELLANEOUS MED 1 EA EA PO PRN (01:30)
[2019-05-16] MEDS ORDERED: ONDANSETRON HCL/PF 4 MG/2 ML VIAL IVP PRN (01:30)
[2019-05-16] MEDS ORDERED: MORPHINE SULFATE INJ 2 MG/ML DISP.SYRIN IV PRN (01:30)
[2019-05-16] MEDS ORDERED: HYDROCODONE/APAP 5/325MG 1 EACH TABLET PO PRN (01:30)
[2019-05-16] MEDS: ACETAMINOPHEN 325 MG TABLET PO PRN ×2 (01:58→08:50)
[2019-05-16] MEDS ORDERED: VANCOMYCIN 0.75 GM in IV NS 0.9% 250 ML IV ONE (02:00)
[2019-05-16] MEDS ORDERED: MEROPENEM 500 MG VIAL IV ONE (02:07)
[2019-05-16] MEDS ORDERED: VANCOMYCIN 1 GM VIAL ONE (02:07)
[2019-05-16] MEDS: MEROPENEM 500 MG in IV NS 0.9% 50 ML IV SCH ×2 (02:10→13:22)
[2019-05-16 06:16] LABS: BACTERIA,URINE Few /HPF (None Seen); RBC,URINE 0-2 /HPF (0-2); SQUAMOUS EPITHELIAL CELL,UR Few /HPF (None Seen); WBC,URINE 0-2 /HPF (0-3)
[2019-05-16 06:17] LABS: URINE AMORPHOUS URATE Moderate /HPF (None Seen)
[2019-05-16 06:30] LABS: BASOPHILS % (AUTO) 0.1 % (0.0-2.0); EOSINOPHILS % (AUTO) 0.1 % (0.0-6.0); HEMATOCRIT 25 % (33-45); HEMOGLOBIN 8.4 g/dL (11.5-14.8); LYMPHOCYTES # (AUTO) 0.9 /CMM (0.8-4.8); LYMPHOCYTES % (AUTO) 8.3 % (20.0-44.0); MEAN CORPUSCULAR HGB CONC 33 g/dl (31.0-36.0); MEAN CORPUSCULAR VOLUME 93 fL (82-100); MONOCYTES # (AUTO) 0.6 /CMM (0.1-1.30); MONOCYTES % (AUTO) 5.9 % (2.0-12.0); NEUTROPHILS # (AUTO) 9.3 /CMM (1.8-8.9); NEUTROPHILS % (AUTO) 85.6 % (43.0-81.0); PLATELET COUNT (AUTO) 202 /CMM (150-450); WHITE BLOOD COUNT (AUTO) 10.8 K/uL (4.3-11.0)
[2019-05-16 07:03] LABS: ALANINE AMINOTRANSFERASE 12 U/L (12-78); ALBUMIN 1.9 g/dL (3.4-5.0); ALKALINE PHOSPHATASE 48 U/L (46-116); ASPARTATE AMINOTRANSFERASE 12 U/L (15-37); BILIRUBIN,TOTAL 0.3 mg/dL (0.2-1.0); CALCIUM, SERUM 7.9 mg/dL (8.5-10.1); CHLORIDE 106 mmol/L (98-107); CREATININE 1.4 mg/dL (0.6-1.3); GLUCOSE 98 mg/dL (74-106); PHOSPHORUS 3.4 mg/dL (2.5-4.9); SODIUM SERUM 130 mmol/L (136-145); TOTAL PROTEIN, SERUM 12.9 g/dL (6.4-8.2); UREA NITROGEN, BLOOD 42 mg/dL (7-18)
[2019-05-16 07:27] LABS: CARBON DIOXIDE 10 mmol/L (21-32); MAGNESIUM 1.1 mg/dL (1.8-2.4)
--- NOTE | 2019-05-16 07:40 | NUR ---
report to dr. perry-here on floor.regarding very low mg level.
[2019-05-16] MEDS ORDERED: FEE PK DOSING 1 MIN EA MC ONE (08:15)
[2019-05-16] MEDS: FOLIC ACID 1 MG TABLET PO SCH (08:49)
[2019-05-16] MEDS: PANTOPRAZOLE 40 MG TABLET.DR PO SCH (08:49)
[2019-05-16] MEDS: ASCORBIC ACID 500 MG TABLET PO SCH (08:50)
[2019-05-16] MEDS: FERROUS SULFATE (325 MG) 325 MG/TAB TABLET PO SCH ×2 (08:50→18:09)
--- NOTE | 2019-05-16 08:50 | NUR ---
dtr. at bedside states pt. with diarrhea yesterday.no colace given.given tylenol for stomach pain-dtr. refusing stronger pain med.
[2019-05-16] MEDS: DOCUSATE SODIUM LIQ 100 MG/10 ML UDC NG SCH ×2 (08:51→17:00)
[2019-05-16] MEDS ORDERED: Medication Not On Formulary EA (Ipratropium/Albuterol Sulfate (Duoneb 2.5-0.5 Mg/3 Ml So IH SCH (09:00)
--- NOTE | 2019-05-16 10:00 | NUR ---
text to dr. perry on mg level-states he will put in order.
--- NOTE | 2019-05-16 10:30 | NUR ---
humidification added to o2 and rn requesting med for stuffy nose per pt's dtr.
--- NOTE | 2019-05-16 11:00 | NUR ---
pt. manager infusion light every few minutes.
--- NOTE | 2019-05-16 12:30 | NUR ---
ua sent as per orders.
[2019-05-16] MEDS: IV NS 0.9% 1,000 ML IV SCH (12:37)
--- NOTE | 2019-05-16 13:30 | NUR ---
text to dr. perry re: low mg.awaiting med order.
[2019-05-16] MEDS: IPRATROPIUM NEB FS 0.5 MG/2.5 ML AMPUL.NEB NEB SCH ×2 (13:39→20:45)
[2019-05-16] MEDS: ALBUTEROL FS 2.5 MG/0.5 ML VIAL.NEB NEB SCH ×2 (13:39→20:45)
[2019-05-16 13:50] LABS: ABG BASE EXCESS -13.6 mmol/L; ABG OXYGEN SATURATION 97.5 % (92.0-98.5); ABG PCO2 16.5 mmHg (35.0-45.0); ABG PH 7.386 (7.350-7.450); ABG PO2 101.1 mmHg (75.0-100.0); AaDO2 107.8 mmHg; COHb 0.7 % (0.5-1.5); MetHb 0.7 % (0.0-1.5); O2Hb 96.1 % (94.0-97.0); SITE, ABG Left Radial
[2019-05-16] MEDS: Magnesium 1GM/D5W 100ML PREMIX 100 ML IV SCH ×2 (14:23→15:36)
--- NOTE | 2019-05-16 14:31 | NUR ---
text again to dr. perry regarding low mg. as well as abg report. according to resp. tx. pt. with metabolic acidosis.
[2019-05-16 14:40] LABS: URINE TOTAL PROTEIN 142.7 mg/dL (0-11.9)
[2019-05-16 15:06] LABS: APPEARANCE,URINE SL CLOUDY (CLEAR); BILIRUBIN,URINE NEGATIVE (NEGATIVE); BLOOD, URINE TRACE-INTA Ery/uL (NEGATIVE); COLOR,URINE YELLOW (YELLOW); KETONES,URINE NEGATIVE (NEGATIVE); LEUKOCYTE ESTERASE ,URINE NEGATIVE (NEGATIVE); NITRITE, URINE NEGATIVE (NEGATIVE); PROTEIN,URINE 30 mg/dl (NEGATIVE); UGLUCOSE NEGATIVE (NEGATIVE); UROBILINOGEN,URINE 0.2 EU/dL (0.2)
[2019-05-16 15:10] LABS: BACTERIA,URINE None seen /HPF (None Seen); MUCUS,URINE Rare /LPF (None Seen); RBC,URINE 0-2 /HPF (0-2); SQUAMOUS EPITHELIAL CELL,UR Few /HPF (None Seen); WBC,URINE 0-2 /HPF (0-3)
[2019-05-16 15:11] LABS: EOSINOPHIL,URINE None Seen
[2019-05-16] MEDS: VANCOMYCIN 500 MG in IV D5W 100 ML IV SCH (16:42)
--- NOTE | 2019-05-16 17:30 | NUR ---
iv infiltrated and removed. restart in rt. upper arm with #22 angio.
--- NOTE | 2019-05-16 20:00 | NUR ---
MS/RN OPENING NOTES RECEIVED PATIENT IN BED, ABLE TO VERBALIZE NEEDS, ON 3 LITER OXYGEN, RESPIRATIONS BETWEEN 24 TO 26. CAN VERBALIZE NEEDS TO USE BSC, ASSISTED AND HAD ONE BM. PATIENT FRAIL AND REQUIRE ASSISTANCE IN TRANSFER. KEPT BED LOCKED, CALL LIGHTS WITHIN REACH, BED ALARM ON. RECEIVED ENDORSEMENT FROM AM RN FOR VASU, MAGNESIUM LOW AND REPLACED TWO BAGS, TO FOLLOW UP AM LAB RESULT. FAMILY INVOLVE, WILL MONITOR. IV SITE INTACT. REPOSITION FOR COMFORT.
[2019-05-17] VITALS (7 sets, daily range): BP systolic 90–109; BP diastolic 55–60
[2019-05-17] MEDS: IV NS 0.9% 1,000 ML IV SCH (00:22)
[2019-05-17] MEDS: MEROPENEM 500 MG in IV NS 0.9% 50 ML IV SCH ×2 (00:31→14:19)
[2019-05-17] MEDS: ALBUTEROL FS 2.5 MG/0.5 ML VIAL.NEB NEB SCH ×4 (01:16→20:38)
[2019-05-17] MEDS: IPRATROPIUM NEB FS 0.5 MG/2.5 ML AMPUL.NEB NEB SCH ×4 (01:16→20:38)
[2019-05-17] MEDS: VANCOMYCIN 500 MG in IV D5W 100 ML IV SCH (03:01)
--- NOTE | 2019-05-17 06:46 | NUR ---
TELE/RN NOTES PATIENT ABLE TO SLEEP DURING THE NIGHT, REQUIRE MONITOIRNG FOR SAFETY TO BE ASSISTED TO BEDSIDE COMMODE PATIENT HAD TO GO USE BSC 3X, AND HARRISON CATHETER DRAINING YELLOW COLOR URINE. ON OXYGEN VIA NC AT 3L. WILL MONITOR. BED LOCKED. CALL LIGHTS WITHIN REACH. KEPT COMFORTABLE. IV FLUIDS ON JOSE DANIEL PATENT WITH NO S/S OF INFILTRATION. WILL MONITOR.WILL ENDORSE TO AM RN FOR VASU.
[2019-05-17 06:55] LABS: ALANINE AMINOTRANSFERASE 8 U/L (12-78); ALBUMIN 1.7 g/dL (3.4-5.0); ALKALINE PHOSPHATASE 39 U/L (46-116); ASPARTATE AMINOTRANSFERASE 11 U/L (15-37); BILIRUBIN,TOTAL 0.1 mg/dL (0.2-1.0); CALCIUM, SERUM 7.4 mg/dL (8.5-10.1); CARBON DIOXIDE 11 mmol/L (21-32); CHLORIDE 108 mmol/L (98-107); CREATININE 1.5 mg/dL (0.6-1.3); GLUCOSE 91 mg/dL (74-106); SODIUM SERUM 129 mmol/L (136-145); TOTAL PROTEIN, SERUM 11.7 g/dL (6.4-8.2); UREA NITROGEN, BLOOD 41 mg/dL (7-18)
[2019-05-17 07:00] LABS: THYROID STIMULATING HORMONE 0.095 uIU/mL (0.358-3.74)
[2019-05-17 08:30] LABS: URIC ACID 7.3 mg/dL (2.6-7.2)
[2019-05-17] MEDS: DOCUSATE SODIUM LIQ 100 MG/10 ML UDC NG SCH ×2 (09:00→17:00)
[2019-05-17] MEDS: ASCORBIC ACID 500 MG TABLET PO SCH (09:01)
[2019-05-17] MEDS: FOLIC ACID 1 MG TABLET PO SCH (09:01)
[2019-05-17] MEDS: PANTOPRAZOLE 40 MG TABLET.DR PO SCH (09:01)
[2019-05-17] MEDS: FERROUS SULFATE (325 MG) 325 MG/TAB TABLET PO SCH ×2 (09:01→17:30)
--- NOTE | 2019-05-17 15:30 | NUR ---
iv leaking,removed and restarted in rt. hand with #22 angio.
--- NOTE | 2019-05-17 18:00 | NUR ---
NO CHANGE IN STATUS.SON IN TO VISIT.
--- NOTE | 2019-05-17 19:30 | NUR ---
WATCH COMMANDER NOTE: PATIENT RESTING IN BED, NO ACUTE DISTRESS NOTED. BREATHING EVEN AND UNLABORED, NO SOB NOTED. HARRISON CATHETER IN PLACE, EMPTY AT THIS TIME. IV IN PLACE TO RIGHT HAND, INFUSING NS AT 75 ML/HR. BED LOCKED AND IN LOWEST POSITION, CALL LIGHT IN REACH. WILL CONTINUE TO MONITOR.
[2019-05-17] MEDS: IV NS 0.9% 1,000 ML IV PRN (20:47)
--- NOTE | 2019-05-17 22:50 | NUR ---
CHERRY DIPPER NOTE: REPORT GIVEN TO ANGELINA, PATIENT RESTING IN BED, NO ACUTE DISTRESS NOTED.
--- NOTE | 2019-05-17 23:09 | NUR ---
tele sport psychologist initial notes received report from another nurse Adwoa /RN and checked the patient , seen in her room lying down sleeping comfortably in bed with no signs of any acute distress noted. she still with IVF of NS at 75ml/hr infusing at this time. Esquivel to gravity with clear yellow output noted. kept her warm and comfortable at all times. Tele Sinus tach per monitor. place call light at reach. will continue monitoring.
[2019-05-18] VITALS: BP 105/57
[2019-05-18] MEDS: ALBUTEROL FS 2.5 MG/0.5 ML VIAL.NEB NEB SCH ×4 (00:38→20:18)
[2019-05-18] MEDS: IPRATROPIUM NEB FS 0.5 MG/2.5 ML AMPUL.NEB NEB SCH ×4 (00:38→20:18)
[2019-05-18] MEDS: MEROPENEM 500 MG in IV NS 0.9% 50 ML IV SCH ×2 (03:02→13:23)
[2019-05-18 04:00] VITALS: BP 110/68
--- NOTE | 2019-05-18 06:58 | NUR ---
tele box toe flanger stitchdowns closing notes pt awake and alert watchung TV at this time, denies any pain or any discomfort. still with IVF at 75ml/hr infusing on her right hand. Slept well and stable annie the night. no signs of any acute distress noted. kept her warm and comfortable at all times. bed alarm set for safety. place call light at reach. Endorse to am nurse for continuity of care.
[2019-05-18 07:09] LABS: BASOPHILS % (AUTO) 0.3 % (0.0-2.0); EOSINOPHILS % (AUTO) 1.4 % (0.0-6.0); HEMATOCRIT 22 % (33-45); HEMOGLOBIN 7.4 g/dL (11.5-14.8); LYMPHOCYTES # (AUTO) 1.7 /CMM (0.8-4.8); LYMPHOCYTES % (AUTO) 16.6 % (20.0-44.0); MEAN CORPUSCULAR HGB CONC 33 g/dl (31.0-36.0); MEAN CORPUSCULAR VOLUME 94 fL (82-100); MONOCYTES # (AUTO) 0.6 /CMM (0.1-1.30); MONOCYTES % (AUTO) 5.4 % (2.0-12.0); NEUTROPHILS # (AUTO) 7.7 /CMM (1.8-8.9); NEUTROPHILS % (AUTO) 76.3 % (43.0-81.0); PLATELET COUNT (AUTO) 211 /CMM (150-450); RED BLOOD CELL COUNT(AUTO) 2.37 MIL/uL (4.0-5.2); WHITE BLOOD COUNT (AUTO) 10.2 K/uL (4.3-11.0)
[2019-05-18 07:10] LABS: CALCIUM, SERUM 7.5 mg/dL (8.5-10.1); CREATININE 1.1 mg/dL (0.6-1.3); POTASSIUM 4.1 mmol/L (3.5-5.1)
[2019-05-18 08:00] VITALS: BP 122/73
[2019-05-18] MEDS: FOLIC ACID 1 MG TABLET PO SCH (08:32)
[2019-05-18] MEDS: FERROUS SULFATE (325 MG) 325 MG/TAB TABLET PO SCH ×2 (08:32→16:28)
[2019-05-18] MEDS: PANTOPRAZOLE 40 MG TABLET.DR PO SCH (08:32)
[2019-05-18] MEDS: ASCORBIC ACID 500 MG TABLET PO SCH (08:32)
[2019-05-18] MEDS: DOCUSATE SODIUM LIQ 100 MG/10 ML UDC NG SCH ×2 (09:00→16:28)
--- NOTE | 2019-05-18 09:37 | NUR ---
TOPOGRAPHICAL SURVEYOR NOTES PT AWAKE AND ALERT X 2. AMERIAN SPEAKING. SHOWS NO SIGNS OF DISTRESS OR DISCOMFORT. BREATHING EVEN AND UNLABORED ON 2L NC. IV ON R HAND #22 G RUNNING ON NS AT 75ML/HR, SHOWS NO REDNESS NO INFILTRATION, INTACT AND PATENT. ATTACHED TO TELE MONITOR SINUS RYTHYM TO SINUS TACHY. KEPT CALL LIGHT IN WITH IN REACH. BED LOW AND LOCKED POSTION WITH ALARMS ON. WILL CONTINUE TO MONITOR.
[2019-05-18 10:15] VITALS: BP 122/73
[2019-05-18] MEDS: IV NS 0.9% 1,000 ML IV PRN (15:00)
[2019-05-18 16:00] VITALS: BP 119/64
--- NOTE | 2019-05-18 18:58 | NUR ---
PASSENGER CAR INSPECTOR NOTE PT AWAKE AND ALERT X 2. AMERIAN SPEAKING. SHOWS NO SIGNS OF DISTRESS OR DISCOMFORT. BREATHING EVEN AND UNLABORED ON 2L NC. IV ON R HAND #22 G RUNNING ON NS AT 75ML/HR, SHOWS NO REDNESS NO INFILTRATION, INTACT AND PATENT. ATTACHED TO TELE MONITOR SINUS RYTHYM . AHRRISON REMOVED 1 VOID AND 1 BM. PER FAMILY REQUEST NO PAIN MEDS EXCEPT TYLENOL. KEPT CALL LIGHT IN WITH IN REACH. BED LOW AND LOCKED POSITION WITH ALARMS ON. WILL CONTINUE TO MONITOR.
--- NOTE | 2019-05-18 19:55 | NUR ---
RN OPENING NOTES RECEIVED REPORT FROM ELIO RN, RAMONA. FOUND Pt AWAKE, RESTING IN BED. NO S/S OF ACUTE DISTRESS OR SOB NOTED. DAUGHTER VISITING AT BEDSIDE. Pt IS A/OX2-3, SURINAMESE SPEAKING, [facility]. IV ACCESS ON R HAND #22G. IVF NS @75ML/HR, INFUSING WELL. SAFETY MEASURES IN PLACE. BED LOW, LOCKED, HOB ELEVATED, SIDE RAILS UP, CALL LIGHT AND BEDSIDE TABLE WITHIN REACH. BED ALARM ON. WILL CONTINUE TO MONITOR Pt's CONDITION AND SAFETY THROUGHOUT THE NIGHT.
[2019-05-18 20:00] VITALS: BP 101/60
[2019-05-19] VITALS: BP 129/78
[2019-05-19] MEDS: ALBUTEROL FS 2.5 MG/0.5 ML VIAL.NEB NEB SCH ×3 (01:02→14:45)
[2019-05-19] MEDS: IPRATROPIUM NEB FS 0.5 MG/2.5 ML AMPUL.NEB NEB SCH ×3 (01:02→14:45)
[2019-05-19] MEDS: MEROPENEM 500 MG in IV NS 0.9% 50 ML IV SCH ×2 (01:06→13:54)
[2019-05-19 04:00] VITALS: BP 131/74
[2019-05-19 06:18] LABS: BASOPHILS % (AUTO) 0.4 % (0.0-2.0); EOSINOPHILS % (AUTO) 1.8 % (0.0-6.0); HEMATOCRIT 23 % (33-45); HEMOGLOBIN 7.8 g/dL (11.5-14.8); LYMPHOCYTES # (AUTO) 1.7 /CMM (0.8-4.8); LYMPHOCYTES % (AUTO) 19.7 % (20.0-44.0); MEAN CORPUSCULAR HGB CONC 34 g/dl (31.0-36.0); MEAN CORPUSCULAR VOLUME 93 fL (82-100); MONOCYTES # (AUTO) 0.6 /CMM (0.1-1.30); MONOCYTES % (AUTO) 6.5 % (2.0-12.0); NEUTROPHILS # (AUTO) 6.1 /CMM (1.8-8.9); NEUTROPHILS % (AUTO) 71.6 % (43.0-81.0); PLATELET COUNT (AUTO) 250 /CMM (150-450); RED BLOOD CELL COUNT(AUTO) 2.52 MIL/uL (4.0-5.2); WHITE BLOOD COUNT (AUTO) 8.5 K/uL (4.3-11.0)
[2019-05-19 06:45] LABS: CALCIUM, SERUM 7.5 mg/dL (8.5-10.1); POTASSIUM 4.5 mmol/L (3.5-5.1)
--- NOTE | 2019-05-19 07:35 | NUR ---
RN CLOSING NOTES: NO SIGNIFICANT CHANGES IN Pt's CONDITION. ALL NEEDS MET AND ATTENDED TO. Pt IS RESTING COMFORTABLY IN BED. NO S/S OF ACUTE DISTRESS OR SOB NOTED DURING THE NIGHT. SAFETY MEASURES IN PLACE. BED LOW, LOCKED, HOB ELEVATED, SIDE RAILS UP, CALL LIGHT AND BEDSIDE TABLE WITHIN REACH. BED ALARM ON. WILL ENDORSE TO DAYSHIFT RN FOR Pt's VASU. TELE READING SR 89.
[2019-05-19 08:00] VITALS: BP 145/79
[2019-05-19] MEDS: ASCORBIC ACID 500 MG TABLET PO SCH (08:35)
[2019-05-19] MEDS: FERROUS SULFATE (325 MG) 325 MG/TAB TABLET PO SCH (08:35)
[2019-05-19] MEDS: DOCUSATE SODIUM LIQ 100 MG/10 ML UDC NG SCH (08:35)
[2019-05-19] MEDS: PANTOPRAZOLE 40 MG TABLET.DR PO SCH (08:35)
[2019-05-19] MEDS: FOLIC ACID 1 MG TABLET PO SCH (08:35)
[2019-05-19 09:55] LABS: BAND % (MANUAL) 1 % (0.0-5.0); EOSINOPHILS % (MANUAL) 1 % (0-4); LYMPHOCYTES % (MANUAL) 25 % (16-48); MONOCYTES % (MANUAL) 6 % (0-11.0); NEUTROPHILS % (MANUAL) 67 (42-76)
[2019-05-19 12:00] VITALS: BP 121/75
[2019-05-19] MEDS ORDERED: LEVO500T75 PO (12:20)
--- NOTE | 2019-05-19 15:33 | NUR ---
RN NOTES PATIENT INFORMED OF DISCHARGE AND SALON ASSISTANT TIME OF 1630, VERBALIZED UNDERSTANDING. PATIENT REFUSED DISCHARGE PICTURES. PATIENT ALSO REFUSED TO SIGN DISCHARGE PAPERS, STATES TO CALL SON AND PROVIDE DISCHARGE INSTRUCTIONS TO SON. SPOKE TO SON TABBY DISCHARGE EDUCATION PROVIDED, VERBALIZED UNDERSTANDING.
[2019-05-19 16:00] VITALS: BP 130/79
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
== END 2019-05-19 17:30 | DRG 871 ==
LOC: ER 22:43 → TELE 23:53
PROVIDERS: ADMIT Internal Medicine; ATTEND Internal Medicine
DX: A41.9 Sepsis, unspecified organism (principal); N17.0 Acute kidney failure with tubular necrosis; G93.41 Metabolic encephalopathy; E43 Unspecified severe protein-calorie malnutrition; E87.2 Acidosis; C90.00 Multiple myeloma not having achieved remission; D68.59 Other primary thrombophilia; R64 Cachexia; Z68.1 Body mass index [BMI] 19.9 or less, adult; E87.1 Hypo-osmolality and hyponatremia; I13.0 Hypertensive heart and chronic kidney disease with heart failure and stage 1 through stage 4 chronic kidney disease, or unspecified chronic kidney disease; R65.20 Severe sepsis without septic shock; E83.42 Hypomagnesemia; E87.5 Hyperkalemia; M06.9 Rheumatoid arthritis, unspecified; K21.9 Gastro-esophageal reflux disease without esophagitis; Z87.11 Personal history of peptic ulcer disease; Z88.0 Allergy status to penicillin; G89.29 Other chronic pain; M54.5 Low back pain; L98.8 Other specified disorders of the skin and subcutaneous tissue; L89.150 Pressure ulcer of sacral region, unstageable; F32.9 Major depressive disorder, single episode, unspecified; D63.1 Anemia in chronic kidney disease; N18.9 Chronic kidney disease, unspecified; I50.9 Heart failure, unspecified; F39 Unspecified mood [affective] disorder; I27.20 Pulmonary hypertension, unspecified
CPT/HCPCS: 31720; 36415; 36600; 71045-TC; 80048-TC; 80053-TC; 80076-TC; 80202-TC; 81000-TC; 82570-TC; 82803-TC; 83605-TC; 83735-TC; 83880; 83935-TC; 83970; 84100-TC; 84155-TC; 84300-TC; 84443-TC; 84484-TC; 84550-TC; 85025-TC; 85730-TC; 86850-TC; 87040-TC; 87081-TC; 87086-TC; 94799-TC; 97110-TC; 97116-TC; 97530-TC; A4216; G0378; J1956; J2185; J3370; J3475; J7030; J7050; J7060

== ENCOUNTER 2019-05-25 10:56 | Inpatient (IN) | payer MEDICARE, OTHER ==
[~2019-05-25] VITALS: Ht 149.9 cm; Wt 38.1 kg
[2019-05-25] VITALS (29 sets, daily range): BP systolic 71–149; BP diastolic 43–96
[~2019-05-25 10:56] MED LIST changes: +LEVO500T75 PO
--- NOTE | 2019-05-25 11:10 | NUR ---
PATIENT BHAVNA SUN FOR ALOC, ABD PAIN, HYPOTENSION. CDIFF ISOLATION. PATIENT A/O X 1. CONNECTED TO MONITOR. RECTAL TEMP 98.8. WILL CONTINUE TO MONITOR ACCORDINGLY
[2019-05-25] MEDS ORDERED: ONDANSETRON HCL/PF 4 MG/2 ML VIAL IVP ONE ×2 (11:30→12:30)
[2019-05-25] MEDS ORDERED: IV NS 0.9% 1,000 ML BAG IV ONE ×2 (11:30)
[2019-05-25] MEDS ORDERED: DOCU-141 PO (11:35)
[2019-05-25] MEDS ORDERED: IPRA0.2S9 IH (11:35)
[2019-05-25] MEDS ORDERED: SACC250C PO (11:35)
[2019-05-25] MEDS ORDERED: METR-147 PO (11:35)
[2019-05-25] MEDS ORDERED: VANC250C12 PO (11:35)
[2019-05-25] MEDS ORDERED: LOPE2TAB25 PO (11:35)
[2019-05-25 11:48] LABS: BASOPHILS # (AUTO) 0.1 /CMM (0.0-0.2); BASOPHILS % (AUTO) 0.1 % (0.0-2.0); EOSINOPHILS % (AUTO) 0.3 % (0.0-6.0); HEMATOCRIT 31 % (33-45); HEMOGLOBIN 9.7 g/dL (11.5-14.8); LYMPHOCYTES # (AUTO) 1.6 /CMM (0.8-4.8); LYMPHOCYTES % (AUTO) 4.2 % (20.0-44.0); MEAN CORPUSCULAR HGB CONC 31 g/dl (31.0-36.0); MEAN CORPUSCULAR VOLUME 95 fL (82-100); MONOCYTES % (AUTO) 2.5 % (2.0-12.0); NEUTROPHILS # (AUTO) 35.9 /CMM (1.8-8.9); NEUTROPHILS % (AUTO) 92.9 % (43.0-81.0); PLATELET COUNT (AUTO) 472 /CMM (150-450); RED BLOOD CELL COUNT(AUTO) 3.28 MIL/uL (4.0-5.2)
[2019-05-25 11:54] LABS: WHITE BLOOD COUNT (AUTO) 38.7 K/uL (4.3-11.0)
--- NOTE | 2019-05-25 11:57 | NUR ---
CALLED FOR TELE BED
[2019-05-25] MEDS ORDERED: VANCOMYCIN 1 GM in IV D5W 250 ML IV ONE (12:00)
[2019-05-25 12:16] LABS: ALANINE AMINOTRANSFERASE 9 U/L (12-78); ALKALINE PHOSPHATASE 56 U/L (46-116); ASPARTATE AMINOTRANSFERASE 26 U/L (15-37); BILIRUBIN,TOTAL 0.3 mg/dL (0.2-1.0); CALCIUM, SERUM 7.7 mg/dL (8.5-10.1); CARBON DIOXIDE 11 mmol/L (21-32); CHLORIDE 104 mmol/L (98-107); CREATININE 2.6 mg/dL (0.6-1.3); GLUCOSE 162 mg/dL (74-106); SODIUM SERUM 126 mmol/L (136-145); TOTAL PROTEIN, SERUM 10.6 g/dL (6.4-8.2); UREA NITROGEN, BLOOD 69 mg/dL (7-18)
[2019-05-25 12:17] LABS: POTASSIUM 6.2 mmol/L (3.5-5.1)
[2019-05-25 12:18] LABS: ALBUMIN 1.4 g/dL (3.4-5.0)
[2019-05-25] MEDS ORDERED: VANCOMYCIN 1 GM VIAL ONE (12:23)
[2019-05-25] MEDS ORDERED: ONDANSETRON HCL/PF 4 MG/2 ML VIAL ONE (12:23)
[2019-05-25] MEDS ORDERED: DEXTROSE 50%-WATER 50 ML DISP.SYRIN ONE (12:24)
[2019-05-25] MEDS ORDERED: CALCIUM CHLORIDE 1,000 MG/10 ML DISP.SYRIN ONE (12:24)
--- NOTE | 2019-05-25 12:24 | NUR ---
ICU BED 259
[2019-05-25] MEDS ORDERED: [UNRECOGNIZED DRUG - OTHER] IV ONE (12:25)
[2019-05-25] MEDS ORDERED: INSULIN REGULAR, HUMAN 100 UNIT/ML 10 ML VIAL ONE (12:25)
[2019-05-25] MEDS ORDERED: SODIUM BICARBONATE SYR 50 MEQ/50 ML DISP.SYRIN ONE (12:26)
[2019-05-25] MEDS ORDERED: SODIUM BICARBONATE SYR 50 MEQ/50 ML DISP.SYRIN IV ONE ×2 (12:30→23:00)
[2019-05-25] MEDS ORDERED: DEXTROSE 50%-WATER 50 ML DISP.SYRIN IV ONE (12:30)
[2019-05-25] MEDS ORDERED: ALBUMIN 25% 12.5 GM/50 ML BOTTLE IV ONE (12:30)
[2019-05-25] MEDS ORDERED: CALCIUM CHLORIDE 1,000 MG/10 ML DISP.SYRIN IV ONE (12:30)
[2019-05-25] MEDS ORDERED: MORPHINE SULFATE INJ 2 MG/ML DISP.SYRIN IV ONE (12:30)
[2019-05-25] MEDS ORDERED: INSULIN REGULAR, HUMAN 100 UNIT/ML 10 ML VIAL IV ONE (12:30)
--- NOTE | 2019-05-25 12:30 | NUR ---
HARRISON CATH PLACED ON PATIENT WITH YELLOW CLOUDY OUTPUT
--- NOTE | 2019-05-25 12:36 | NUR ---
CALLED [facility]
--- NOTE | 2019-05-25 12:45 | NUR ---
URINE COLLECTED AND SENT TO LAB
--- NOTE | 2019-05-25 12:59 | NUR ---
PATIENT NOTED WITH DESAT AT 88%. PLACED ON NRB AT 10L/MIN. DR KIM MADE AWARE.
[2019-05-25 13:06] LABS: BAND % (MANUAL) 4 % (0.0-5.0); LYMPHOCYTES % (MANUAL) 5 % (16-48); METAMYELOCYTES % 1 % (0-0); MONOCYTES % (MANUAL) 5 % (0-11.0); MYELOCYTES % 2 % (0-0); NEUTROPHILS % (MANUAL) 83 (42-76)
[2019-05-25 13:07] LABS: APPEARANCE,URINE Clear (CLEAR); BILIRUBIN,URINE Negative (NEGATIVE); BLOOD, URINE Negative Ery/uL (NEGATIVE); COLOR,URINE Yellow (YELLOW); KETONES,URINE Negative (NEGATIVE); LEUKOCYTE ESTERASE ,URINE Negative (NEGATIVE); NITRITE, URINE Negative (NEGATIVE); PROTEIN,URINE 30 mg/dl (NEGATIVE); UGLUCOSE Negative (NEGATIVE); UROBILINOGEN,URINE 0.2 EU/dL (0.2)
[2019-05-25 13:08] LABS: BACTERIA,URINE Few /HPF (None Seen); RBC,URINE 0-2 /HPF (0-2); SQUAMOUS EPITHELIAL CELL,UR Few /HPF (None Seen); WBC,URINE 0-2 /HPF (0-3)
[2019-05-25] MEDS ORDERED: IOHEXOL-300 100 ML VIAL IV ONE (13:10)
[2019-05-25] MEDS ORDERED: CT SWABBABLE VALVE TRANS SET 1 EA INFUS.SET MC ONE (13:11)
[2019-05-25] MEDS ORDERED: IV NS 0.9% 250 ML IV ONE (13:11)
[2019-05-25 13:12] LABS: ABG OXYGEN SATURATION 98.9 % (92.0-98.5); ABG PH 7.224 (7.350-7.450); ABG PO2 210.4 mmHg (75.0-100.0); AaDO2 369.7 mmHg; COHb 0.4 % (0.5-1.5); MetHb 0.8 % (0.0-1.5); O2Hb 97.7 % (94.0-97.0); SITE, ABG Right Brachial
[2019-05-25] MEDS ORDERED: ALBUMIN 25% 50 ML IV ONE ×2 (13:12→13:13)
--- NOTE | 2019-05-25 13:50 | NUR ---
PATIENT BACK TO UNIT FROM RADIOLOGY. MORE AWAKE NOW, O2 SAT REMAINS AT 99-100%. PATIENT PLACED ON 5L/MIN O2 VIA NC. TOLERATING WELL. WILL CONTINUE TO MONITOR
--- NOTE | 2019-05-25 13:59 | NUR ---
O2 SAT REMAINS 99% IN O2 AT 5L/MIN VIA NC.
--- NOTE | 2019-05-25 14:09 | NUR ---
PLACED CALL TO ICU AND GAVE REPORT TO LEANNE ROCHE
--- NOTE | 2019-05-25 14:50 | NUR ---
ICU/RN: Pt received on 6L/min via NC, pt noted with tachypnea, expiratory wheezes, accessory muscle use. ST on monitor. Placed on SM. Pt responds to light touch, confused, unable to follow commands. FC draining clear yellow urine to gravity. 2L NS bolus ongoing; REINFORCING STEEL MACHINE OPERATOR endorsed administration of 1230 albumin dose. paged for admitting orders.
--- NOTE | 2019-05-25 15:00 | NUR ---
ICU/RN: Dr Pennington at bedside; updated on pt status. Imaging reviewed. RT at bedside for NT suctioning. Orders for stat ABGs noted and carried out.
[2019-05-25] MEDS ORDERED: IMIPENEM/CILASTATIN 250 MG in IV NS 0.9% 50 ML IV SCH (15:30)
[2019-05-25] MEDS ORDERED: IV D5/ 0.9% NACL 1,000 ML IV PRN (15:30)
[2019-05-25 15:34] LABS: ABG BASE EXCESS -17.5 mmol/L; ABG OXYGEN SATURATION 97.5 % (92.0-98.5); ABG PCO2 31.1 mmHg (35.0-45.0); ABG PH 7.134 (7.350-7.450); ABG PO2 116.2 mmHg (75.0-100.0); AaDO2 104.4 mmHg; COHb 0.3 % (0.5-1.5); MetHb 0.9 % (0.0-1.5); O2Hb 96.3 % (94.0-97.0); SITE, ABG Right Radial; VENT MODE, BG S/M 4LPM
[2019-05-25] MEDS ORDERED: ALBUTEROL FS 2.5 MG/0.5 ML VIAL.NEB NEB ONE (16:00)
[2019-05-25] MEDS ORDERED: PROPOFOL 100 ML IV PRN (16:00)
--- NOTE | 2019-05-25 16:00 | NUR ---
RT NOTES ABG WAS DONE PER MARY OLSEN, DUE TO ABG RESULTS, DR ORDERED INTUBATION, INTUBATED WITH ER WITH A 7.0 ETT. 22 AT THE LIP, POST XRAY PULLED ETT 3INCHES NOW AT 19 AT THE LIP, 1HR ALBUTEROL TX GIVEN DUE TO LOW POTASSIUM, ALARMS ON AND AUDIBLE, VENT PLUGGED INTO RED OUTLET, ABG IN 1HR. WILL CONTINUE TO MONITOR CLOSELY
[2019-05-25] MEDS ORDERED: ALBUTEROL FS 2.5 MG/0.5 ML VIAL.NEB NEB SCH (16:30)
--- NOTE | 2019-05-25 16:30 | NUR ---
ICU/RN: Pt s/p emergent intubation; CXR reviewed by Dr Pennington with orders to retract ETT by 3cm. Pending repeat ABG. MD informed of elevated K and interventions in ER. Per MD, continue with current regimen and administer breathing tx as ordered.
[2019-05-25 16:41] LABS: ALANINE AMINOTRANSFERASE < 6 U/L (12-78); ALBUMIN 1.5 g/dL (3.4-5.0); ALKALINE PHOSPHATASE 56 U/L (46-116); ASPARTATE AMINOTRANSFERASE 17 U/L (15-37); BILIRUBIN,DIRECT 0.1 mg/dL (0.0-0.2); BILIRUBIN,TOTAL 0.2 mg/dL (0.2-1.0); TOTAL PROTEIN, SERUM 8.9 g/dL (6.4-8.2)
[2019-05-25] MEDS ORDERED: IV NS 0.9% 1,000 ML IV PRN (16:41)
[2019-05-25] MEDS: IPRATROPIUM NEB FS 0.5 MG/2.5 ML AMPUL.NEB NEB SCH ×3 (16:46→23:33)
[2019-05-25] MEDS: ALBUTEROL FS 2.5 MG/3 ML VIAL.NEB NEB SCH ×2 (16:46→18:36)
[2019-05-25] MEDS: METRONIDAZOLE 500MG/ NS 100ML 500 MG in PREMIX 1 EA IV SCH ×2 (16:56→21:17)
[2019-05-25] MEDS: MEROPENEM 500 MG in IV NS 0.9% 50 ML IV SCH (16:57)
[2019-05-25] MEDS ORDERED: MORPHINE SULFATE INJ 2 MG/ML DISP.SYRIN IV PRN (17:00)
[2019-05-25] MEDS ORDERED: VANCOMYCIN HCL 1.25 GM in IV D5W 260 ML IV ONE (17:00)
[2019-05-25] MEDS ORDERED: ENOXAPARIN SODIUM 30 MG/0.3 ML DISP.SYRIN SQ SCH (17:00)
[2019-05-25] MEDS ORDERED: PANTOPRAZOLE 40 MG VIAL IV SCH (17:00)
[2019-05-25] MEDS ORDERED: ZOLPIDEM TARTRATE 5 MG TABLET PO PRN (17:00)
[2019-05-25] MEDS ORDERED: MAGNESIUM HYDROXIDE 30 ML UDC PO PRN (17:00)
[2019-05-25] MEDS ORDERED: HYDROCODONE/APAP 5/325MG 1 EACH TABLET PO PRN (17:00)
[2019-05-25] MEDS ORDERED: METRONIDAZOLE 500MG/ NS 100ML 500 MG in PREMIX 1 EA IV SCH (17:00)
[2019-05-25] MEDS ORDERED: MAG HYDROX/AL HYDROX/SIMETH 30 ML UDC PO PRN (17:00)
[2019-05-25] MEDS ORDERED: CIPROFLOXACIN IV RTU 400 MG in PREMIX 1 EA IV SCH (17:00)
[2019-05-25] MEDS ORDERED: ACETAMINOPHEN 325 MG TABLET PO PRN (17:00)
[2019-05-25] MEDS ORDERED: ONDANSETRON HCL/PF 4 MG/2 ML VIAL IVP PRN (17:00)
[2019-05-25] MEDS ORDERED: Z GUARD REMEDY 2 OZ OINT TP PRN (17:00)
[2019-05-25] MEDS ORDERED: ETOMIDATE 2 MG/ML VIAL IV ONE (17:07)
[2019-05-25] MEDS ORDERED: SUCCINYLCHOLINE CHLORIDE 20 MG/ML VIAL IV ONE (17:07)
--- NOTE | 2019-05-25 17:45 | NUR ---
ICU/RN: Dr Salazar at bedside; extensive dw family regarding POC. Updated on sedation, hypotension. Order for PICC obtained, consent given by Herminio, son. New orders noted and carried out.
[2019-05-25] MEDS ORDERED: NOREPINEPHRINE 16 MG in IV D5W 500 ML IV PRN (18:00)
[2019-05-25] MEDS ORDERED: HEPARIN SODIUM, PORCINE 5000 UNITS/1 ML VIAL SQ SCH ×2 (18:00→21:00)
[2019-05-25] MEDS: VANCOMYCIN HCL 125 MG/2.5 ML ORAL.SUSP PO SCH (18:00)
[2019-05-25 18:21] LABS: ABG BASE EXCESS -18.3 mmol/L; ABG OXYGEN SATURATION 99.2 % (92.0-98.5); ABG PCO2 22.3 mmHg (35.0-45.0); ABG PH 7.185 (7.350-7.450); ABG PO2 442.2 mmHg (75.0-100.0); AaDO2 248.5 mmHg; COHb 0.3 % (0.5-1.5); MetHb 1.3 % (0.0-1.5); O2Hb 97.6 % (94.0-97.0); SITE, ABG Right Brachial
--- NOTE | 2019-05-25 18:30 | NUR ---
ICU/RN: S/P PICC placement; US tech at bedside for US gallbladder. Pt s/b Dr Castellon.
[2019-05-25] MEDS ORDERED: ALBUTEROL FS 2.5 MG/3 ML VIAL.NEB ONE (18:35)
--- NOTE | 2019-05-25 19:18 | NUR ---
CERAMIC SPRAYER. BLOOD PRESSURE IS 75/45. LEVOPHED STARTED PER PROTOCOL.
[2019-05-25] MEDS: ALBUTEROL HALF STRENGTH 1.25 MG/3 ML VIAL.NEB NEB SCH ×3 (19:30→23:30)
--- NOTE | 2019-05-25 20:09 | NUR ---
PT RCVD ORALLY INTUBATED WITH 7.0 ETT SECURED @ 19 CM LIP LINE. PT IS SEDATED . Q4 BREATHING TX GIVEN . NO ADVERSE REACTION NOTED. VENT PLUGGED INTO RED OUTLET, VENT ALARM CHECKED AND AUDIBLE.. SX DONE PRN. NO RESPIRATORY DISTRESS NOTED AT THIS TIME. WILL CONTINUE TO MONITOR THE PT.
--- NOTE | 2019-05-25 20:18 | NUR ---
SENIOR INFRASTRUCTURE ENGINEER. RECEIVED THE PT REST ON THE BED. ORALLY INTUBATED. SEDATED WITH DIPRIVAN. ETT #7,LIP 19,AC 18,TV 500, FIO2 50%, PEEP 5. SAT 98%. OGT INTACT. CLAMPED. NPO. RUFUS SOFT WRIST RESTRAINT CHECKED AND RELEASED. NO INJURY OR REDNESS NOTED. ADVERTISING JOB TITLES SHOWING S TACH. FC PATENT. IV RT UPPER ARM PICC LINE RT AND LT WRIST 22G, DIPRIVAN 25 MCG/KG/MIN, NS 150 ML/H. HOB ELEVATED. LEVOPHED 6 MCG/MIN. ABDOMEN DISTENDED. WILL CONTINUE TO MONITOR VITALS.
[2019-05-25 20:20] LABS: CALCIUM, SERUM 7.4 mg/dL (8.5-10.1); CHLORIDE 106 mmol/L (98-107); CREATININE 2.5 mg/dL (0.6-1.3); GLUCOSE 223 mg/dL (74-106); POTASSIUM 4.5 mmol/L (3.5-5.1); SODIUM SERUM 128 mmol/L (136-145); UREA NITROGEN, BLOOD 69 mg/dL (7-18)
[2019-05-25 20:21] LABS: CARBON DIOXIDE 10 mmol/L (21-32)
[2019-05-25 21:26] LABS: ABG BASE EXCESS -18.4 mmol/L; ABG OXYGEN SATURATION 98.7 % (92.0-98.5); ABG PH 7.228 (7.350-7.450); ABG PO2 158.8 mmHg (75.0-100.0); AaDO2 177.5 mmHg; COHb 0.4 % (0.5-1.5); MetHb 0.9 % (0.0-1.5); O2Hb 97.4 % (94.0-97.0); PEEP,BG 5 cm H2O; SITE, ABG Right Brachial; VT, ABG 500 mL
--- NOTE | 2019-05-25 21:43 | NUR ---
CERAMICS ENGINEER. ABG DONE. RESULT NOTIFIED MD BLOOD. NO NEW ORDER RECEIVED.
--- NOTE | 2019-05-25 22:30 | NUR ---
REVENUE CYCLE SPECIALIST. ABG SHOWS HCO3 7.3, PT HAS AGONAL BREATHING . NOTIFIED [facility]O CLINICAL DATA SPECIALIST. ORDERED 1 AMP BICARB IV PUSH. . WILL CONTINUE TO MONITOR.
[2019-05-26] VITALS (10 sets, daily range): BP systolic 20–126; BP diastolic 40–70
[2019-05-26] MEDS: VANCOMYCIN HCL 125 MG/2.5 ML ORAL.SUSP PO SCH ×2 (01:07→06:00)
[2019-05-26] MEDS ORDERED: PHENYLEPHRINE 10 MG/ML VIAL ONE (03:13)
[2019-05-26] MEDS: ALBUTEROL HALF STRENGTH 1.25 MG/3 ML VIAL.NEB NEB SCH ×2 (03:20→07:35)
[2019-05-26] MEDS: IPRATROPIUM NEB FS 0.5 MG/2.5 ML AMPUL.NEB NEB SCH ×2 (03:21→07:35)
[2019-05-26] MEDS ORDERED: PHENYLEPHRINE 80 MG in IV NS 0.9% 250 ML IV PRN (03:30)
--- NOTE | 2019-05-26 03:52 | NUR ---
FARM BOSS. AROUND 0300 PT HEART RATE WENT DOWN FROM 140 TO 70S. BLOOD PRESSURE WAS 74/35, DIPRIVAN TITRATED DOWN. LEVOPHED INCREASED. NORSYNEPHRINE ORDER RECEIVED,
--- NOTE | 2019-05-26 03:56 | NUR ---
TELECOMMUNICATIONS ENGINEER. PT IS CRITICAL. NOTIFIED FAMILY SON TABBY , HE CHANGED CODE STATUS, NOTIFIED POLO
[2019-05-26 04:40] LABS: BASOPHILS # (AUTO) 0.2 /CMM (0.0-0.2); BASOPHILS % (AUTO) 0.4 % (0.0-2.0); EOSINOPHILS % (AUTO) 0.8 % (0.0-6.0); HEMATOCRIT 33 % (33-45); HEMOGLOBIN 10.1 g/dL (11.5-14.8); LYMPHOCYTES # (AUTO) 4.7 /CMM (0.8-4.8); LYMPHOCYTES % (AUTO) 7.4 % (20.0-44.0); MEAN CORPUSCULAR HGB CONC 31 g/dl (31.0-36.0); MEAN CORPUSCULAR VOLUME 97 fL (82-100); MONOCYTES # (AUTO) 1.5 /CMM (0.1-1.30); MONOCYTES % (AUTO) 2.3 % (2.0-12.0); NEUTROPHILS # (AUTO) 57.2 /CMM (1.8-8.9); NEUTROPHILS % (AUTO) 89.1 % (43.0-81.0); PLATELET COUNT (AUTO) 294 /CMM (150-450); RED BLOOD CELL COUNT(AUTO) 3.36 MIL/uL (4.0-5.2)
[2019-05-26 04:48] LABS: CHOLESTEROL 91 mg/dL (<200); LDL 35 mg/dL (0-99); THYROID STIMULATING HORMONE 0.787 uIU/mL (0.358-3.74); TRIGLYCERIDES 189 mg/dL (30-150)
[2019-05-26 04:50] LABS: AMYLASE 96 U/L (25-115); CALCIUM, SERUM 7.4 mg/dL (8.5-10.1); CARBON DIOXIDE 11 mmol/L (21-32); CHLORIDE 107 mmol/L (98-107); CREATININE 2.9 mg/dL (0.6-1.3); GLUCOSE 206 mg/dL (74-106); LIPASE 38 U/L (73-393); MAGNESIUM 2.4 mg/dL (1.8-2.4); PHOSPHORUS 7.9 mg/dL (2.5-4.9); POTASSIUM 5.6 mmol/L (3.5-5.1); SODIUM SERUM 130 mmol/L (136-145); UREA NITROGEN, BLOOD 70 mg/dL (7-18)
[2019-05-26] MEDS: METRONIDAZOLE 500MG/ NS 100ML 500 MG in PREMIX 1 EA IV SCH (04:54)
[2019-05-26] MEDS: MEROPENEM 500 MG in IV NS 0.9% 50 ML IV SCH (05:04)
[2019-05-26 05:07] LABS: HDL CHOLESTEROL < 10 mg/dL (40-60)
[2019-05-26 05:13] LABS: WHITE BLOOD COUNT (AUTO) 64.1 K/uL (4.3-11.0)
--- NOTE | 2019-05-26 05:15 | NUR ---
ABG AND EKG ORDER NOT DONE, PT VERY UNSTABLE . RN HENRY AWARE
[2019-05-26 06:02] LABS: BAND % (MANUAL) 39 % (0.0-5.0); LYMPHOCYTES % (MANUAL) 11 % (16-48); METAMYELOCYTES % 8 % (0-0); MYELOCYTES % 1 % (0-0); NEUTROPHILS % (MANUAL) 41 (42-76)
--- NOTE | 2019-05-26 06:29 | NUR ---
harness installer. pt is very unstable,. levo and shelia max out.
--- NOTE | 2019-05-26 07:48 | NUR ---
ICU/RN: Spoke with Herminio, son and informed him of mother's expiration. Per son, "I'll be there around 0830." Support provided.
--- NOTE | 2019-05-26 07:58 | NUR ---
ICU/RN: [facility] notified. Spoke with Lorna, patient history reviewed. Per [facility], will not proceed with case as patient is not a candidate. Case # [id number]. Reported to KRISTYN Kaur, . Spoke with Fam, case reviewed. According to cut and cover line worker, "It is not a cut and cover line worker's case, you may release the body."
== END 2019-05-26 07:45 | disposition expired | DRG 871 ==
LOC: ER 10:58 → ICU 12:31
PROVIDERS: ADMIT Hospitalist; ATTEND Hospitalist
PROC: 5A1935Z Respiratory Ventilation, Less than 24 Consecutive Hours (ICD-10-PCS; principal; 2019-05-25)
PROC: 0BH17EZ Insertion of Endotracheal Airway into Trachea, Via Natural or Artificial Opening (ICD-10-PCS; 2019-05-25)
DX: A41.9 Sepsis, unspecified organism (principal); J96.01 Acute respiratory failure with hypoxia; E43 Unspecified severe protein-calorie malnutrition; R65.21 Severe sepsis with septic shock; A04.72 Enterocolitis due to Clostridium difficile, not specified as recurrent; Z66 Do not resuscitate; C90.00 Multiple myeloma not having achieved remission; E87.2 Acidosis; E87.1 Hypo-osmolality and hyponatremia; N17.9 Acute kidney failure, unspecified; Z68.1 Body mass index [BMI] 19.9 or less, adult; F09 Unspecified mental disorder due to known physiological condition; K21.9 Gastro-esophageal reflux disease without esophagitis; Z88.0 Allergy status to penicillin; Z87.11 Personal history of peptic ulcer disease; M06.9 Rheumatoid arthritis, unspecified; D64.9 Anemia, unspecified; F32.9 Major depressive disorder, single episode, unspecified; G89.29 Other chronic pain; M54.5 Low back pain; K80.20 Calculus of gallbladder without cholecystitis without obstruction; E87.5 Hyperkalemia; E86.0 Dehydration; N18.3 Chronic kidney disease, stage 3 (moderate); I12.9 Hypertensive chronic kidney disease with stage 1 through stage 4 chronic kidney disease, or unspecified chronic kidney disease
CPT/HCPCS: 31720; 36415; 36600; 70450-TC; 71045-TC; 76705-TC; 80048-TC; 80061-TC; 80076-TC; 81000-TC; 82150-TC; 82803-TC; 82962-TC; 83605-TC; 83690-TC; 83735-TC; 83880; 84100-TC; 84443-TC; 84484-TC; 85025-TC; 85730-TC; 87040-TC; 87086-TC; 94003-TC; A4216; A6403; C1751; C9113; G0378; J0330; J0743; J0744; J1644; J1815; J2185; J2370; J2405; J3370; J3490; J7030; J7042; J7050; J7060; P9047; Q9967